=== PATIENT | female | born 1960 | race Caucasian/White ===

== ENCOUNTER 2024-05-26 17:24 | Inpatient (IN) ==
[2024-05-26 19:10] LABS: Albumin Level 3.8 gm/dl (3.4-5.0); BUN Creatinine Ratio 12.5 (10-20); Calcium 9.7 mg/dl (8.6-10.3); Creatinine Clr Calc Pharmacy 15.5 ml/min; Hematocrit (blood only) 34.3 % (37.0-47.0); Mean Corpuscular Hemoglobin 30.9 pg (25.0-34.0); Mean Corpuscular Hgb Conc 32.1 g/dL (32.0-36.0); Mean Corpuscular Volume 96.3 fL (80.0-100.0); Mean Platelet Volume 12.1 fL (9.4-12.4); Platelet Count 123 K/uL (130-400); Potassium 3.6 mmol/L (3.5-5.1); RDW Coefficient of Variation 15.6 % (11.5-14.5); RDW Standard Deviation 55.8 fL (36.4-46.3); Red Blood Count 3.56 M/uL (4.20-5.40); Total Protein 7.8 gm/dl (6.0-8.3); White Blood Count 20.04 K/ul (4.8-10.8)
[2024-05-26 19:11] LABS: Basophils # (auto) 0.03 K/uL (0.00-0.20); Basophils % (auto) 0.1 %; Eosinophils # (auto) 0.17 K/uL (0.00-0.50); Eosinophils % (auto) 0.8 %; Immature Granulocytes # (auto) 0.48 K/uL (0.01-0.20); Immature Granulocytes % (auto) 2.4 %; Lymphocytes # (auto) 1.19 K/uL (1.20-3.40); Lymphocytes % (auto) 5.9 %; Monocytes # (auto) 2.15 K/uL (0.11-0.59); Monocytes % (auto) 10.7 %; Neutrophils # (auto) 16.02 K/uL (1.40-6.50); Neutrophils % (auto) 80.1 %; Stomatocytes 1+
--- NOTE | 2024-05-26 19:51 | XRay Report ---
CHEST (AP PORTABLE): Reason for exam: Illness Previous: None The lung morel are clear and normally expanded. The cardiovascular markings and pulmonary vascular pattern are normal. The mediastinal structures and nadiya are normal. The bones and soft tissues are normal. IMPRESSION: Normal portable chest. Electronically signed by Michael Kelly 05-26-2024 7:51 PM
[2024-05-26 19:55] LABS: Amorphous Sediment Urine Present (None Prsent); Appearance Urine Turbid (Clear); Bacteria Urine Automated 1+ (None Seen); Bilirubin Urine 2+ (Negative); Blood Urine 1+ (Negative); Cast Urine Automated >20 /lpf (0-2); Color Urine Dark Yellow; Glucose Urine UA Negative (Negative); Granular Casts Urine Present /lpf (None Prsent); Ketones Urine Trace (Negative); Leukocyte Esterase Urine 2+ (Negative); Mucus Urine Present (None Prsent); Nitrite Urine Positive (Negative); Protein Urine 3+ (Negative); Specific Gravity Urine 1.028 (1.000-1.030); Urobilinogen Urine Positive (Negative); WBC Urine Automated >50 /hpf (0-5)
[2024-05-26] MEDS: SODIUM CHLORIDE 0.9% 1,000 ML IV ONE ×2 (21:17→21:57)
[2024-05-26] MEDS: cefTRIAXone SODIUM 2,000 MG/50 ML BAG IV STA (21:45)
[2024-05-26] MEDS: MoRPHine SULFATE 4 MG/ML 1 ML CARP\\VIAL IV STA (21:57)
--- NOTE | 2024-05-26 22:58 | Emergency Department Note ---
Impression & Plan Urinary tract infection, Acute right flank pain, ROGER (acute kidney injury), Sepsis ED Provider Note ED Provider Note NAME: AHSAN PUENTE AGE:63 SEX: Female : 1960 ARRIVES VIA: Private vehicle INFORMANT: Patient ED PROVIDER(s): Darlin Jeter DO CHIEF COMPLAINT: Right flank pain, vomiting HPI: This is a 63-year-old female who presents emergency room due to concern for right flank pain, nausea and vomiting, and dysuria. Patient states she first began having symptoms on Saturday and did see her PCP. She then had blood work and an ultrasound done today for further evaluation. She was told her blood work was abnormal. Patient states in the interim she had persistent right-sided flank pain. She thought perhaps initially it was musculoskeletal as she has been doing some exercises to try and lose weight. She then noticed over the weekend that she was urinating less often but still had the urge to urinate and that the urine was darker in color and had a stronger odor. She denies any history of recurrent UTIs. No other history of kidney problems or kidney stones. She states she began having worsening right flank and right back pain that would radiate into the right abdomen. She denies fevers or chills. She did have nausea and vomiting today, no hematemesis. No change in stools. PAST MEDICAL HISTORY:See Below PAST SURGICAL HISTORY:See Below FAMILY HISTORY:See Below SOCIAL HISTORY:See Below HOME MEDICATIONS:See Below ALLERGIES:See Below VITALS:See Below PHYSICAL EXAMINATION: GENERAL: alert, unwell appearing, well nourished, no distress, non-toxic EYE EXAM: normal conjunctiva, PERRL and EOM's grossly intact OROPHARYNX: no exudate, no erythema, lips, buccal mucosa, and tongue normal and mucous membranes are moist NECK: supple, no nuchal rigidity, no adenopathy, non-tender LUNGS: Clear to auscultation. Normal chest wall mechanics, no w/r/r HEART: no murmurs, S1 normal and S2 normal ABDOMEN: abdomen soft, pain with palpation in the right lateral abdomen, normo- active bowel sounds, no masses, no rebound or guarding. BACK: Back is symmetrical on inspection and there is no deformity, no midline tenderness, positive right CVA tenderness. SKIN: no rashes, petechiae, orbruising UPPER EXTREMITIES: upper extremities are grossly normal. FROM, nml pulses b/l. LOWER EXTREMITIES: No pitting edema. FROM, nml pulses b/l. NEURO EXAM: Normal sensorium, cranial nerves II-XII grossly intact, normal speech, no facial droop,nogross weakness of arms, no gross weakness of legs. Gross sensation intact. No ataxia. Vital Signs: reviewed and remarkable Differential Diagnosis: Ureterolithiasis, UTI, pyelonephritis, colitis, bowel obstruction, musculoskeletal pain, pneumonia, cholecystitis, pancreatitis, viral syndrome, as well as others were considered MEDICAL DECISION MAKING: This is a 63-year-old female presents emergency department due to concern for persistent flank pain, chills, and nausea. Patient noted to be hypertensive and borderline tachycardic on arrival. She did appear uncomfortable and complained of pain in the right flank. Did review her recent outpatient evaluation including labs and ultrasound. Upon arrival here labs drawn and sent, IV established, EKG and chest x-ray performed at bedside and was interpreted by me, and she was monitored on telemetry. She was started on IV fluids and upon review of prior cultures, started on IV antibiotics. She was sent for CT of the abdomen and pelvis additionally. Urine collected and sent and was abnormal. Patient symptoms suggestive of likely evolving pyelonephritis and given leukocytosis noted concern for possible sepsis. Blood cultures, lactic acid, procalcitonin added. Patient's lactic acid reassuring although procalcitonin elevated. Patient noted to have new significant ROGER additionally. CT did not reveal any obstructive process or significant hydronephrosis. Patient given 2 L of IV fluids here before being decreased to maintenance IV fluids. She was given IV Rocephin. Patient did maintain her blood pressure throughout. She did receive greater than 30 mL/KG based on ideal body weight. Patient updated on all results at bedside. She was given IV morphine for pain with improvement. Case discussed with the hospitalist team for additional evaluation and management. Patient did appear improved following IV fluids and IV medication for pain. Consultation(s): 8223: Discussed with Dr. Webster, [facility] hospitalist team, for additional evaluation and management. ER Treatment Provided: See below Diagnostics Interpreted By Me: -ECG: Normal sinus at 99, normal axis, normal intervals, no acute ST/T wave changes -Cardiac Monitoring: An order was placed for continuous cardiac monitoring. The monitor shows a rate of 98 with normal sinus rhythm. -Laboratory studies: As stated above and show below. -Imaging studies: CT abdomen/pelvis: No obvious ureterolithiasis Triage Nursing Note Reviewed Prior/Outside Records Reviewed -outpatient ultrasound and labs from today reviewed Critical Care: Critical care of 39 min performed to assess and manage high likelihood of life-threatening sepsis, involving labs and imaging performed with assessment to evaluate UTI and flank pain diagnosis with frequent reassessment. This time includes bedside time, treatment discussions with patient/family/consultants, documentation time and excludes procedure time. Past Med/Surg History Problem List (Updated 05/28/24 @ 02:08 by Darlin Jeter DO) Immunocompromised state due to drug therapy Sepsis (Acute) ROGER (acute kidney injury) (Acute) Urinary tract infection (Acute) Acute right flank pain (Acute) Social History Smoking Status: Former smoker Hx Alcohol Use: No Hx Substance Use: No Preferred Language: Ethiopian Communication Ability: Effective Office Rep Required: No Beliefs That Will Affect Care: None Current Living Situation: Spouse Feels Safe at Home: Yes Safety Concerns: Feels Safe At This Time Assistive Devices: Cane, Denture - Upper, Denture - Lower, Glasses and Walker Allergies Allergies Allergy/AdvReac Type Severity Reaction Status Date / Time No Known Allergies Allergy Verified 05/27/24 01:51 Home Meds Home Medications Medication Instructions Recorded Confirmed acetaminophen 500 mg tablet 1,000 mg PO Q6H PRN Pain 02/16/20 05/27/24 bupropion HCl 150 mg tablet,12 hr 150 mg PO AMHS 02/16/20 05/27/24 sustained-release calcium 600 mg (as 2 tab PO DAILY 02/16/20 05/27/24 carbonate)-vitamin D3 5 mcg (200 unit) tablet (Calcium 600 + D(3)) etanercept 50 mg/mL (1 mL) 50 mg subcut WK 02/16/20 05/27/24 subcutaneous pen injector (Enbrel SureClick) folic acid 1 mg tablet 1 mg PO QAM 02/16/20 05/27/24 furosemide 40 mg tablet 40 mg PO DAILY PRN Swelling 02/16/20 05/27/24 hydrochlorothiazide 12.5 mg capsule 12.5 mg PO DAILY 02/16/20 05/27/24 omeprazole 20 mg capsule,delayed 20 mg PO DAILY 02/16/20 05/27/24 release atorvastatin 10 mg tablet 10 mg PO DAILY 05/27/24 05/27/24 cyanocobalamin (vitamin B-12) 1,000 mcg PO DAILY 05/27/24 05/27/24 1,000 mcg tablet (Vitamin B-12) irbesartan 150 mg tablet 150 mg PO HS 05/27/24 05/27/24 naltrexone 50 mg tablet 50 mg PO QAM 05/27/24 05/27/24 ondansetron HCl 4 mg tablet 4 mg PO Q6 PRN Nausea 05/27/24 05/27/24 semaglutide 0.25 mg or 0.5 mg (2 0.5 mg subcut WK 05/27/24 05/27/24 mg/3 mL) subcutaneous pen injector (Ozempic) Results & Data (ED) Vital Signs Vital Signs - 24 hr 05/27/24 03:00 Pulse Rate [Apical] 93 H Respiratory Rate 20 Respiratory Effort / Characteristics Non-Labored Respiratory Depth Normal Respiratory Pattern Regular Blood Pressure [Right Arm] 129/76 Blood Pressure Mean [Right Arm] 93 Pulse Oximetry 98 Oxygen Delivery Method Room Air Laboratory Data 05/27/24 07:46 05/27/24 07:46 Lab Results 05/26/24 05/26/24 05/26/24 Range/Units 18:30 19:30 21:24 WBC 20.04 H (4.8-10.8) K/ul RBC 3.56 L (4.20-5.40) M/uL Hgb 11.0 L (12.0-16.0) g/dl Hct 34.3 L (37.0-47.0) % MCV 96.3 (80.0-100.0) fL MCH 30.9 (25.0-34.0) pg MCHC 32.1 (32.0-36.0) g/dL RDW Std Deviation 55.8 H (36.4-46.3) fL RDW Coeff of Izaiah 15.6 H (11.5-14.5) % Plt Count 123 L (130-400) K/uL MPV 12.1 (9.4-12.4) fL Immature Gran % (Auto) 2.4 % Neut % (Auto) 80.1 % Lymph % (Auto) 5.9 % Wilkinson % (Auto) 10.7 % Eos % (Auto) 0.8 % Baso % (Auto) 0.1 % Neut # (Auto) 16.02 H (1.40-6.50) K/uL Lymph # (Auto) 1.19 L (1.20-3.40) K/uL Wilkinson # (Auto) 2.15 H (0.11-0.59) K/uL Eos # (Auto) 0.17 (0.00-0.50) K/uL Baso # (Auto) 0.03 (0.00-0.20) K/uL Immature Gran # (Auto) 0.48 H (0.01-0.20) K/uL Stomatocytes 1+ Sodium 139 (136-145) mmol/L Potassium 3.6 (3.5-5.1) mmol/L Chloride 102 (98-107) mmol/L Carbon Dioxide 24 (21-32) mmol/L Anion Gap 13 H (3-11) BUN 54 H (6-23) mg/dl Creatinine 4.31 H (0.6-1.2) mg/dl Est Cr Clr Drug Dosing 15.5 ml/min eGFR 10.83 BUN/Creatinine Ratio 12.5 (10-20) Glucose 102 H (70-99(Fasting)) mg/dl Lactate 0.9 (0.4-2.0) mmol/L Calcium 9.7 (8.6-10.3) mg/dl Total Bilirubin 3.0 H (0.2-1.0) mg/dl AST 21 (13-39) U/L ALT 14 (7-52) U/L Alkaline Phosphatase 200 H (34-104) U/L Total Protein 7.8 (6.0-8.3) gm/dl Albumin 3.8 (3.4-5.0) gm/dl Globulin 4.0 (2.5-4.0) gm/dl Albumin/Globulin Ratio 1.0 (0.9-2) Procalcitonin 6.43 H (0-0.5) ng/ml Urine Color Dark Yellow Urine Appearance Turbid A (Clear) Urine pH 5.0 (4.5-7.5) Ur Specific [place] 1.028 (1.000-1.030) Urine Protein 3+ H (Negative) Urine Glucose (UA) Negative (Negative) Urine Ketones Trace H (Negative) Urine Blood 1+ H (Negative) Urine Nitrite Positive A (Negative) Urine Bilirubin 2+ H (Negative) Urine Urobilinogen Positive H (Negative) Ur Leukocyte Esterase 2+ H (Negative) Urine WBC (Auto) >50 H (0-5) /hpf Urine RBC (Auto) 3-5 H (0-2) /hpf U Hyaline Cast (Auto) >20 H (0-2) /lpf U Epithel Cells (Auto) 6-10 H (0-2) /hpf Urine Bacteria (Auto) 1+ H (None Seen) Amorphous Sediment Present A (None Prsent) Granular Casts Present A (None Prsent) /lpf Urine Mucus Present A (None Prsent) Administered Medications Acetaminophen (Acetaminophen 325 Mg Tab) 650 mg PO Q4H PRN PRN Reason: Pain or Fever Stop: 06/26/24 04:47 Last Admin: 05/27/24 21:40 Dose: 650 mg Documented By: Admin: 05/27/24 13:37 Dose: 650 mg Documented By: Admin: 05/27/24 05:24 Dose: 650 mg Documented By: KDL Bupropion HCl (Bupropion Sr 150 Mg Tabcr) 150 mg PO BID [facility] Stop: 06/26/24 08:59 Last Admin: 05/27/24 21:17 Dose: 150 mg Documented By: Admin: 05/27/24 08:38 Dose: 150 mg Documented By: OO Calcium/Vitamin D (Calcium 600mg + Vit D 400 Iu Tab) 2 tab PO DAILY [facility] Stop: 06/26/24 08:59 Last Admin: 05/27/24 08:38 Dose: 2 tab Documented By: OO Cyanocobalamin (Cyanocobalamin (B-12) 500 Mcg Tablet) 1,000 mcg PO DAILY [facility] Stop: 06/26/24 08:59 Last Admin: 05/27/24 08:38 Dose: 1,000 mcg Documented By: OO Folic Acid (Folic Acid 1 Mg Tab) 1 mg PO QAM [facility] Stop: 06/26/24 08:59 Last Admin: 05/27/24 08:36 Dose: 1 mg Documented By: OO Heparin Sodium (Porcine) (Heparin Sod 5,000 Unit/0.5 Ml Vial) 7,500 units SQ Q12 [facility] Stop: 06/26/24 08:59 Last Admin: 05/27/24 21:15 Dose: 7,500 units Documented By: Admin: 05/27/24 08:41 Dose: 7,500 units Documented By: OO Ceftriaxone Sodium (Rocephin) 2,000 mg in 50 mls @ 100 mls/hr IV Q24H [facility] Stop: 06/03/24 12:29 Last Infusion: 05/27/24 14:09 Dose: Infused Documented By: Admin: 05/27/24 13:35 Dose: 100 mls/hr Documented By: OO Sodium Bicarbonate 75 meq/ (Sodium Chloride) 1,075 mls @ 50 mls/hr IV .[id number] [facility] Stop: 05/28/24 09:29 Last Admin: 05/27/24 13:59 Dose: 50 mls/hr Documented By: ALBERTINA Pantoprazole Sodium (Pantoprazole 40 Mg Tab) 40 mg PO DAILY [facility] Stop: 06/26/24 08:59 Last Admin: 05/27/24 08:38 Dose: 40 mg Documented By: OO Discontinued Medications Sodium Chloride (Nss) 1,000 mls @ 999 mls/hr IV .Q1H1M ONE Stop: 05/26/24 21:58 Last Infusion: 05/26/24 22:18 Dose: Infused Documented By: Admin: 05/26/24 21:17 Dose: 999 mls/hr Documented By: KEYUR Ceftriaxone Sodium (Rocephin) 2,000 mg in 50 mls @ 100 mls/hr IV NOW STA Stop: 05/26/24 21:27 Last Infusion: 05/26/24 22:15 Dose: Infused Documented By: Admin: 05/26/24 21:45 Dose: 100 mls/hr Documented By: KIMANI Sodium Chloride (Nss) 1,000 mls @ 999 mls/hr IV .Q1H1M ONE Stop: 05/26/24 22:47 Last Infusion: 05/26/24 23:06 Dose: Infused Documented By: Admin: 05/26/24 21:57 Dose: 999 mls/hr Documented By: KEYUR Sodium Chloride (Nss) 1,000 mls @ 125 mls/hr IV .Q8H [facility] Stop: 05/27/24 23:29 Last Infusion: 05/27/24 04:49 Dose: Infused Documented By: Infusion: 05/27/24 04:49 Dose: 0 mls/hr Documented By: Admin: 05/26/24 23:35 Dose: 125 mls/hr Documented By: JASPAL Sodium Chloride (Nss) 1,000 mls @ 75 mls/hr IV .[id number] [facility] Stop: 05/28/24 04:47 Last Infusion: 05/27/24 13:59 Dose: Infused Documented By: Admin: 05/27/24 05:13 Dose: 75 mls/hr Documented By: TAZ Daptomycin 450 mg/ Syringe 9 mls @ 4.5 mls/min IV Q2D [facility]; Protocol Stop: 06/03/24 05:14 Last Admin: 05/27/24 05:24 Dose: 4.5 mls/min Documented By: TAZ Morphine Sulfate (Morphine Sulfate 4 Mg/Ml 1 Ml Carp\Vial) 4 mg IV NOW STA Stop: 05/26/24 21:48 Last Admin: 05/26/24 21:57 Dose: 4 mg Documented By: GCC Imaging Data Radiologist's Impression: Chest X-Ray 05/26/24 18:33 CHEST (AP PORTABLE): Reason for exam: Illness Previous: None The lung morel are clear and normally expanded. The cardiovascular markings and pulmonary vascular pattern are normal. The mediastinal structures and nadiya are normal. The bones and soft tissues are normal. IMPRESSION: Normal portable chest. Electronically signed by Michael Kelly 05-26-2024 7:51 PM Discharge Plan Visit Data Chief Complaint: Urinary Symptoms Stated Complaint: URINARY SYMPTOMS ED Provider: Darlin Jeter Discharge Problem: Urinary tract infection, Acute right flank pain, ROGER (acute kidney injury), Sepsis Patient Disposition: Admitted As Inpatient Discharge Instructions Interventions: ED Discharge Assessment Last Done: 05/27/24 04:26
[2024-05-26] MEDS: SODIUM CHLORIDE 0.9% 1,000 ML IV SCH (23:35)
--- NOTE | 2024-05-27 00:32 | CT Scan Report ---
Exam(s): CT ABDOMEN + PELVIS Without Contrast EXAM: CT Abdomen and Pelvis Without Intravenous Contrast CLINICAL HISTORY: Reason for exam: right abd/flank pain. TECHNIQUE: Axial computed tomography images of the abdomen and pelvis without intravenous contrast. CTDI is 28.14 mGy and DLP is 1437.03 mGy-cm. Automated exposure control was utilized for the study. A dose lowering technique was utilized adhering to the principles of ALARA. COMPARISON: CT Abdomen Pelvis dated 02/16/2020 FINDINGS: Lung bases: Unremarkable. No mass. No consolidation. ABDOMEN: Liver: Hepatomegaly. Hepatic steatosis. Gallbladder and bile ducts: Unremarkable. No calcified stones. No ductal dilation. Pancreas: Unremarkable. No ductal dilation. Spleen: Unremarkable. No splenomegaly. Adrenals: Unremarkable. No mass. Kidneys and ureters: Asymmetric mildly edematous/enlarged right kidney and minimal surrounding fat stranding. No hydroureteronephrosis or obstructing calculus. Stomach and bowel: Colonic diverticulosis. No obstruction. No mucosal thickening. PELVIS: Appendix: Normal appendix. Bladder: Mild bladder wall thickening versus partial distention. No stones. Reproductive: Unremarkable as visualized. ABDOMEN and PELVIS: Intraperitoneal space: Unremarkable. No free air. No significant fluid collection. Bones/joints: No acute fracture. No dislocation. Soft tissues: Unremarkable. Vasculature: Mild aortoiliac atherosclerotic calcifications. No abdominal aortic aneurysm. Lymph nodes: Unremarkable. No enlarged lymph nodes. IMPRESSION: Asymmetric mildly edematous/enlarged right kidney and minimal surrounding fat stranding. No hydroureteronephrosis or obstructing calculus. Differential diagnosis includes infection, recently passed calculus, underlying lesion. Correlate clinically and consider contrast study. Electronically signed by: Bin Maradiaga M.D. 05/27/24 00:31 AM
--- NOTE | 2024-05-27 03:43 | History & Physical Report ---
Date of Service May 27, 2024 Assessment & Plan (1) ROGER (acute kidney injury): Plan: 63-year-old female with past medical history significant for hypertension, morbid obesity, heartburn, generalized osteoarthritis, thrombocytopenia, macrocytic anemia, rheumatoid arthritis involving multiple sites with positive rheumatoid factor, presents with right flank pain and found to have ROGER and UTI. Patient states last 3 days she is having severe right flank pain radiating to her right groin region. Associated with nausea. And also had a fever at home 3 days ago. Was not micturating at home last 2 -3 days. Did not moved bowels yesterday. Was feeling short of breath. Denies chest pain. Has some mild headache. Mild right ear ache. Has some runny nose. No sore throat. No cough. Currently hemodynamics are okay. ROGER Creatinine 4.[address] scan no obvious obstruction seen Continue with fluids normal saline 75 mL/h Avoid nephrotoxic agents Follow repeat labs Consult nephrology in a.m. for further recommendations Acute UTI Acute pyelonephritis Asymmetric right mildly edematous/enlarged right kidney with minimal surrounding fat stranding on ct scan Received Rocephin in the ER Placed empirically on cefepime and Dapto with renal dosing Will follow cultures Further recommendation as per nephrology Possible sepsis With leukocytosis and tachycardia And UTI Empiric antibiotics Dapto and cefepime with renal dosing and fluids Closely monitor hemodynamics Possible right ear external otitis media Antibiotics as above Monitor Hypertension Hold hydrochlorothiazide and irbesartan for ROGER Will monitor Hyperlipidemia Hold statin while on Dapto Thrombocytopenia Platelets 123 We will monitor the labs Rheumatoid arthritis On Enbrel weekly which was held for now Morbid obesity On Ozempic which will be held for now GERD On omeprazole Depression On bupropion DVT prophylaxis Heparin subcu Monitor the platelets Disposition Telemetry Full code. History of Present Illness Chief Complaint: Right flank pain Primary Care Provider: Katja Priest DO 63-year-old female with past medical history significant for hypertension, morbid obesity, heartburn, generalized osteoarthritis, thrombocytopenia, macrocytic anemia, rheumatoid arthritis involving multiple sites with positive rheumatoid factor, presents with right flank pain and found to have ROGER and UTI. Patient states last 3 days she is having severe right flank pain radiating to her right groin region. Associated with nausea. And also had a fever at home 3 days ago. Was not micturating at home last 2 -3 days. Did not moved bowels yesterday. Was feeling short of breath. Denies chest pain. Has some mild headache. Mild right ear ache. Has some runny nose. No sore throat. No cough. Currently hemodynamics are okay. Past medical history. As mentioned above Past surgical history. Colonoscopy. Ligation of oviducts. Social history. . Quit smoking 2005. Smoked 1 pack a day for 25 years. No alcohol use currently. No drug use. Family history. Father had rheumatoid arthritis. Mother had breast cancer. Non-Hodgkin's lymphoma. Maternal cousin had breast cancer. Allergies Allergy/AdvReac Type Severity Reaction Status Date / Time No Known Allergies Allergy Verified 05/27/24 01:51 Home Medications Medication Instructions Recorded Confirmed Type acetaminophen 500 mg tablet 1,000 mg PO Q6H PRN Pain 02/16/20 05/27/24 History bupropion HCl 150 mg tablet,12 hr 150 mg PO AMHS 02/16/20 05/27/24 History sustained-release calcium 600 mg (as 2 tab PO DAILY 02/16/20 05/27/24 History carbonate)-vitamin D3 5 mcg (200 unit) tablet (Calcium 600 + D(3)) etanercept 50 mg/mL (1 mL) 50 mg subcut WK 02/16/20 05/27/24 History subcutaneous pen injector (Enbrel SureSaltyick) folic acid 1 mg tablet 1 mg PO QAM 02/16/20 05/27/24 History furosemide 40 mg tablet 40 mg PO DAILY PRN Swelling 02/16/20 05/27/24 History hydrochlorothiazide 12.5 mg capsule 12.5 mg PO DAILY 02/16/20 05/27/24 History omeprazole 20 mg capsule,delayed 20 mg PO DAILY 02/16/20 05/27/24 History release atorvastatin 10 mg tablet 10 mg PO DAILY 05/27/24 05/27/24 History cyanocobalamin (vitamin B-12) 1,000 mcg PO DAILY 05/27/24 05/27/24 History 1,000 mcg tablet (Vitamin B-12) irbesartan 150 mg tablet 150 mg PO HS 05/27/24 05/27/24 History naltrexone 50 mg tablet 50 mg PO QAM 05/27/24 05/27/24 History ondansetron HCl 4 mg tablet 4 mg PO Q6 PRN Nausea 05/27/24 05/27/24 History semaglutide 0.25 mg or 0.5 mg (2 0.5 mg subcut WK 05/27/24 05/27/24 History mg/3 mL) subcutaneous pen injector (Ozempic) Past Med/Surg History Problem List (Updated 05/27/24 @ 08:17 by Zina Nava MD, PhD) Sepsis ROGER (acute kidney injury) (Acute) Urinary tract infection (Acute) Acute right flank pain (Acute) Social History Smoking Status: Former smoker Hx Alcohol Use: No Hx Substance Use: No Preferred Language: Filipino Communication Ability: Effective Galvanizing Pot Runner Required: No Beliefs That Will Affect Care: None Current Living Situation: Spouse Feels Safe at Home: Yes Safety Concerns: Feels Safe At This Time Assistive Devices: Cane, Denture - Upper, Denture - Lower, Glasses and Walker Review of Systems Review of Systems: All systems reviewed & are unremarkable except as noted in HPI & below Physical Exam Physical Exam: General-Not in acute distress. Head- atraumatic Eyes- PERRL. ENT- oropharynx clear. Right ear external ear canal mild erythema seen Neck- supple, no JVD. Lungs- clear to auscultation no wheezing or crackles Heart- regular rhythm; no murmur, no gallop. Abdomen- normal bowel sounds, soft, mild diffuse discomfort, no distension Extremities- no pretibial edema, no erythema seen Neuro- alert, oriented PERRL, no facial palsy; no dysarthria; moves extremities Results & Data Results & Data Vital Signs (Past 12 Hours) Vital Signs Temp Pulse Pulse Resp BP BP Pulse Ox 05/27/24 02:00 95 H 18 141/88 H 94 05/27/24 00:34 91 H 05/27/24 00:00 95 H 20 120/84 98 05/26/24 23:35 97 H 18 133/66 98 05/26/24 23:00 98 H 18 97 05/26/24 22:00 102 H 18 126/80 97 05/26/24 20:39 99 H 05/26/24 18:03 36.4 C L 95 H 18 183/95 H 97 O2 Del Method 05/27/24 02:00 Room Air 05/27/24 00:34 05/27/24 00:00 Room Air 05/26/24 23:35 Room Air 05/26/24 23:00 Room Air 05/26/24 22:00 Room Air 05/26/24 20:39 05/26/24 18:03 Room Air Diagnostic Findings Laboratory Results WBC 20.04 K/ul (4.8-10.8) H 05/26/24 18:30 RBC 3.56 M/uL (4.20-5.40) L 05/26/24 18:30 Hgb 11.0 g/dl (12.0-16.0) L 05/26/24 18:30 Hct 34.3 % (37.0-47.0) L 05/26/24 18:30 MCV 96.3 fL (80.0-100.0) 05/26/24 18:30 MCH 30.9 pg (25.0-34.0) 05/26/24 18:30 MCHC 32.1 g/dL (32.0-36.0) 05/26/24 18:30 RDW Std Deviation 55.8 fL (36.4-46.3) H 05/26/24 18:30 RDW Coeff of Izaiah 15.6 % (11.5-14.5) H 05/26/24 18:30 Plt Count 123 K/uL (130-400) L 05/26/24 18:30 MPV 12.1 fL (9.4-12.4) 05/26/24 18:30 Immature Gran % (Auto) 2.4 % 05/26/24 18:30 Neut % (Auto) 80.1 % 05/26/24 18:30 Lymph % (Auto) 5.9 % 05/26/24 18:30 [place] % (Auto) 10.7 % 05/26/24 18:30 Eos % (Auto) 0.8 % 05/26/24 18:30 Baso % (Auto) 0.1 % 05/26/24 18:30 Neut # (Auto) 16.02 K/uL (1.40-6.50) H 05/26/24 18:30 Lymph # (Auto) 1.19 K/uL (1.20-3.40) L 05/26/24 18:30 [place] # (Auto) 2.15 K/uL (0.11-0.59) H 05/26/24 18:30 Eos # (Auto) 0.17 K/uL (0.00-0.50) 05/26/24 18:30 Baso # (Auto) 0.03 K/uL (0.00-0.20) 05/26/24 18:30 Immature Gran # (Auto) 0.48 K/uL (0.01-0.20) H 05/26/24 18:30 Stomatocytes 1+ 05/26/24 18:30 Sodium 139 mmol/L (136-145) 05/26/24 18:30 Potassium 3.6 mmol/L (3.5-5.1) 05/26/24 18:30 Chloride 102 mmol/L (98-107) 05/26/24 18:30 Carbon Dioxide 24 mmol/L (21-32) 05/26/24 18:30 Anion Gap 13 (3-11) H 05/26/24 18:30 BUN 54 mg/dl (6-23) H 05/26/24 18:30 Creatinine 4.31 mg/dl (0.6-1.2) H 05/26/24 18:30 Est Cr Clr Drug Dosing 15.5 ml/min 05/26/24 18:30 eGFR 10.83 05/26/24 18:30 BUN/Creatinine Ratio 12.5 (10-20) 05/26/24 18:30 Glucose 102 mg/dl (70-99(Fasting)) H 05/26/24 18:30 Lactate 0.9 mmol/L (0.4-2.0) 05/26/24 21:24 Calcium 9.7 mg/dl (8.6-10.3) 05/26/24 18:30 Total Bilirubin 3.0 mg/dl (0.2-1.0) H 05/26/24 18:30 AST 21 U/L (13-39) 05/26/24 18:30 ALT 14 U/L (7-52) 05/26/24 18:30 Alkaline Phosphatase 200 U/L (34-104) H 05/26/24 18:30 Total Protein 7.8 gm/dl (6.0-8.3) 05/26/24 18:30 Albumin 3.8 gm/dl (3.4-5.0) 05/26/24 18: Globulin 4.0 gm/dl (2.5-4.0) 05/26/24 18: Albumin/Globulin Ratio 1.0 (0.9-2) 05/26/24 18: Procalcitonin 6.43 ng/ml (0-0.5) H 05/26/24 18:30 Urine Color Dark Yellow 05/26/24 19: Urine Appearance Turbid (Clear) A 05/26/24 19: Urine pH 5.0 (4.5-7.5) 05/26/24 19: Ur Specific [place] 1.028 (1.000-1.030) 05/26/24: Urine Protein 3+ (Negative) H 05/26/24 Urine Glucose (UA) Negative (Negative) 05/26/24: Urine Ketones Trace (Negative) H 05/26/24: Urine Blood 1+ (Negative) H 05/26/24: Urine Nitrite Positive (Negative) A 05/26/24: Urine Bilirubin 2+ (Negative) H 05/26/24: Urine Urobilinogen Positive (Negative) H 05/26/24 19: Ur Leukocyte Esterase 2+ (Negative) H 05/26/24: Urine WBC (Auto) >50 /hpf (0-5) H 05/26/24 19: Urine RBC (Auto) 3-5 /hpf (0-2) H 05/26/24: U Hyaline Cast (Auto) >20 /lpf (0-2) H 05/26/24: U Epithel Cells (Auto) 6-10 /hpf (0-2) H 05/26/24 19: Urine Bacteria (Auto) 1+ (None Seen) H 05/26/24 19: Amorphous Sediment Present (None Prsent) A 05/26/24 19: Granular Casts Present /lpf (None Prsent) A 05/26/24 19: Urine Mucus Present (None Prsent) A 05/26/24 19:30 Impressions Chest X-Ray 05/26/24 18:33 CHEST (AP PORTABLE): Reason for exam: Illness Previous: None The lung morel are clear and normally expanded. The cardiovascular markings and pulmonary vascular pattern are normal. The mediastinal structures and nadiya are normal. The bones and soft tissues are normal. IMPRESSION: Normal portable chest. Electronically signed by Michael Kelly 05-26-2024 7:51 PM Abdomen/Pelvis CT 05/26/24 21:51 Exam(s): CT ABDOMEN + PELVIS Without Contrast EXAM: CT Abdomen and Pelvis Without Intravenous Contrast CLINICAL HISTORY: Reason for exam: right abd/flank pain. TECHNIQUE: Axial computed tomography images of the abdomen and pelvis without intravenous contrast. CTDI is 28.14 mGy and DLP is 1437.03 mGy-cm. Automated exposure control was utilized for the study. A dose lowering technique was utilized adhering to the principles of ALARA. COMPARISON: CT Abdomen Pelvis dated 02/16/2020 FINDINGS: Lung bases: Unremarkable. No mass. No consolidation. ABDOMEN: Liver: Hepatomegaly. Hepatic steatosis. Gallbladder and bile ducts: Unremarkable. No calcified stones. No ductal dilation. Pancreas: Unremarkable. No ductal dilation. Spleen: Unremarkable. No splenomegaly. Adrenals: Unremarkable. No mass. Kidneys and ureters: Asymmetric mildly edematous/enlarged right kidney and minimal surrounding fat stranding. No hydroureteronephrosis or obstructing calculus. Stomach and bowel: Colonic diverticulosis. No obstruction. No mucosal thickening. PELVIS: Appendix: Normal appendix. Bladder: Mild bladder wall thickening versus partial distention. No stones. Reproductive: Unremarkable as visualized. ABDOMEN and PELVIS: Intraperitoneal space: Unremarkable. No free air. No significant fluid collection. Bones/joints: No acute fracture. No dislocation. Soft tissues: Unremarkable. Vasculature: Mild aortoiliac atherosclerotic calcifications. No abdominal aortic aneurysm. Lymph nodes: Unremarkable. No enlarged lymph nodes. IMPRESSION: Asymmetric mildly edematous/enlarged right kidney and minimal surrounding fat stranding. No hydroureteronephrosis or obstructing calculus. Differential diagnosis includes infection, recently passed calculus, underlying lesion. Correlate clinically and consider contrast study. Electronically signed by: Bin Maradiaga M.D. 05/27/24 00:31 AM ECG Additional Comments: ECG. Normal sinus rhythm at rate of 99. No acute ST changes seen. Code Status & VTE Plan VTE Prophylaxis Plan VTE Prophylaxis will be ordered: Yes
[2024-05-27] MEDS ORDERED: HYDROmorphone INJ 0.5 MG/0.5 ML SYR IV PRN (04:48)
[2024-05-27] MEDS ORDERED: ONDANSETRON INJ 2 MG/ML 2 ML VIAL IV PRN (04:48)
[2024-05-27] MEDS ORDERED: NITROGLYCERIN SL 0.4 MG/TAB TAB SL PRN (04:48)
[2024-05-27] MEDS: SODIUM CHLORIDE 0.9% 1,000 ML IV SCH (05:13)
[2024-05-27] MEDS: ACETAMINOPHEN 325 MG TAB PO PRN (05:24)
[2024-05-27] MEDS: DAPTOmycin 450 MG in SYRINGE 0 ML IV SCH (05:24)
--- OUTSIDE RECORDS SUMMARY | 2024-05-27 05:46 | External Medical Summary ---
Author Name Unknown Address Unknown Organization : Laboratory Report Ordering Provider Test Date Status DIMITRIS KRAUSECULLEN 05/26/2024 08:01:00 Final Observation Date Value Abnormality Reference (Units ) Status Color of Urine by Auto 05/26/2024 08:01:00 Dark Yellow Abnormal Light Yellow, Yellow Final Clarity, Urine 05/26/2024 08:01:00 Cloudy Abnormal Clear Final Glucose [Mass/volume] in Urine by Automated test strip 05/26/2024 08:01:00 100 Abnormal Negative (mg/dL) Final Bilirubin.total [Presence] in Urine by Automated test strip 05/26/2024 08:01:00 Large Abnormal Negative Final Ketones [Mass/volume] in Urine by Automated test strip 05/26/2024 08:01:00 15 Abnormal Negative (mg/dL) Final Specific gravity, Urine 05/26/2024 08:01:00 1.025 1.003-1.030 Final Hemoglobin [Presence] in Urine by Automated test strip 05/26/2024 08:01:00 Moderate Abnormal Negative Final pH, Urine 05/26/2024 08:01:00 5.5 5.0, 5.5, 6.0, 6.5, 7.0, 7.5 (units) Final Protein [Mass/volume] in Urine by Automated test strip 05/26/2024 08:01:00 >=300 Abnormal Negative (mg/dL) Final Urobilinogen, Urine 05/26/2024 08:01:00 4.0 Abnormal 0.2, 1.0 (mg/dL) Final Nitrite [Presence] in Urine by Automated test strip 05/26/2024 08:01:00 Negative Negative Final Leukocyte esterase [Presence] in Urine by Automated test strip 05/26/2024 08:01:00 Trace Abnormal Negative Final Performing Location
--- OUTSIDE RECORDS SUMMARY | 2024-05-27 05:46 | External Medical Summary ---
Author Name Unknown Address Unknown Organization [id number]:LABORATORY [facility] [place] - [address] [place] [address] Laboratory Report Ordering Provider Test Date Status DAYANA KRAUSE 05/26/2024 08:09:47 Final Observation Date Value Abnormality Reference (Units ) Status HbA1C 05/26/2024 08:09:47 5.3 4.0-5.6 (% ) Final The use of HbA1c to monitor glycemic status is based on normal hemoglobin and HbA composition. This test should not be used in patients with abnormal hemoglobin that affects the half life of the red blood cell or the in vivo glycation rates. Glucose, estimated average 05/26/2024 08:09:47 105 <126 (mg/dL) Final Performing Location LABORATORY [facility] [place] - [address] [place] [address]
--- OUTSIDE RECORDS SUMMARY | 2024-05-27 05:46 | External Medical Summary | Summary of Care ---
Author Name Unknown Organization [facility] Address [address] [facility] [address] [place] [address] Phone [phone] Care Team Providers Care Manager Video Games Name Role Phone Katja Priest DO Primary Care Provider + [phone] Reason for Visit * Reason Onset Date Comments Medication Refill 05/14/2024 Encounter Details Date Type Department Care Team (Late st Contact Info) Description 05/14/2024 Refill Family Medicine [address] [place] [phone] Katja Priest DO [address] [place] [address] [place] [phone] GENERALIZED ANXIETY DIS; Morbid obesity with BMI of 40.0-44.9, adult (HCC) Allergies No known active allergiesdocumented as of this encounter (statuses as of 05/14/2024) Medications GNP VITAMIN B-12 1000 MCG PO TBCR Take 1 Tablet by mouth daily. 04/27/19 15 Active Cholecalciferol (VITAMIN D3) 2000 UNITS Capsule Take 1 Cap by mouth daily. 30 Cap 5 08/06/19 15 Active Additional Information Patient not taking.Reported on 03/06/2024 Cetirizine HCl 10 MG Oral Tablet (ZyrTEC) Take 1 Tablet by mouth in the morning. Active Irbesartan 150 MG Oral Tablet (Avapro)Indicati ons:Primary hypertension TAKE ONE TABLET BY MOUTH BEFORE bedtime 90 Tablet 3 12/03/19 24 Active Trulicity 0.75 MG/0.5ML Subcutaneous Solution Pen-injector (Dulaglutide)Ind ications:Type 2 diabetes mellitus without complications (HCC) Inject 0.75 mg subcutaneously once a week 2 mL 5 12/13/19 24 Active Enbrel SureClick 50 MG/ML Subcutaneous Solution Auto-injector (Etanercept)Charlotte cations:Arthriti s, rheumatoid (HCC) Inject 50 mg (1 pen) under the skin once a week. 4 mL 5 5 2:33 PM EST 01/08/20 24 Active Furosemide 40 MG Oral Tablet (Lasix)Indicatio ns:Generalized edema TAKE ONE TABLET BY MOUTH EVERY DAY NEEDED 90 Tablet 1 01/14/20 24 Active Folic Acid 1 MG Oral TabletIndication s:Rheumatoid arthritis involving multiple sites with positive rheumatoid factor ([facility]) Take 1 Tablet by mouth in the morning. In the morning.. 90 Tablet 2 02/04/20 24 Active Atorvastatin Calcium 10 MG Oral Tablet (Lipitor) TAKE ONE TABLET BY MOUTH EVERY DAY 90 Tablet 3 02/27/20 24 Active Ozempic (0.25 or 0.5 MG/DOSE) 2 MG/3ML Solution Pen-injector (Semaglutide(0.2 5 or 0.5MG/DOS))Indic ations:DM type 2, goal HbA1c < 7% ([facility]) Inject 0.25mg under the skin once weekly for 4 weeks then increase to 0.5mg under the skin once weekly thereafter 9 mL 1 4 11:25 AM EST 03/06/20 24 Active Diclofenac Sodium 50 MG Oral Tablet Delayed Release (Voltaren)Indica tions:Generalize d osteoarthritis,R heumatoid arthritis involving multiple sites with positive rheumatoid factor ([facility]) Take 1 Tablet by mouth 3 times a day as needed for Pain, Mild. 90 Tablet 2 03/11/20 24 Active Omeprazole 20 MG Oral Capsule Delayed Release (PriLOSEC)Indica tions:Heartburn Take 1 Capsule by mouth in the morning. 90 Capsule 2 05/12/19 25 Active buPROPion HCl ER (SR) 150 MG Oral Tablet Extended Release 12 Hour (Wellbutrin SR)Indications:G eneralized anxiety disorder,Morbid obesity with BMI of 40.0-44.9, adult ([facility]) Take 1 Tablet by mouth in the morning and 1 Tablet before bedtime. 180 Tablet 1 05/12/19 25 Active Naltrexone HCl 50 MG Oral Tablet (Revia)Indicatio ns:Generalized anxiety disorder,Morbid obesity with BMI of 40.0-44.9, adult (HCC) Take 1 Tablet by mouth in the morning. 90 Tablet 1 05/14/19 25 Active Naltrexone HCl 50 MG Oral Tablet (Revia)Indicatio ns:Generalized anxiety disorder,Morbid obesity with BMI of 40.0-44.9, adult (HCC) TAKE 1/2 TABLET BY MOUTH IN THE MORNING AND ONE-HALF TABLET AT BEDTIME 90 Tablet 02/07/20 24 025 Discontin ued(Refil l) documented as of this encounter (statuses as of 05/14/2024) Active Problems Problem Noted Date Diagnosed Date Morbid obesity with BMI of 40.0-44.9, adult 02/13 Overview (04/26/2022): 242 Primary hypertension 07/06/2021 Thrombocytopenia 07/08/2018 Overview (08/19/2018): 137,000 Macrocytic anemia 08/13/2017 Encounter for long-term (current) use of medicat ions 05/11/2016 Rheumatoid arthritis involvi ng multiple sites with positive rheumatoid factor 04/25/2016 Generalized osteoarthritis 12/07/2009 Heartburn 06/25/2002 Full dentures 06/25/2002 documented as of this encounter (statuses as of 05/14/2024) Resolved Problems Problem Noted Date Diagnosed Date Resolved Date Age-related osteoporosis wit hout current pathological fracture 02/04/2024 02/04/2024 Morbid obesity with BMI of 40.0-44.9, adult 02/28/2022 03/01/2022 Overview (02/28/2022): 242 DM type 2, goal HbA1c < 7% 04/17/2021 0 07/02/2023 Overview (12/12/2021): glucose 218 Restless legs syndrome 10/26/202007/01 CKD (chronic kidney disease), stage II 08/03/2020 07/02/2023 Overview (10/26/2020): EGFR 66 Urinary retention 06/29/2020 09/27/2021 Body mass index (BMI) of 45. 0 to 49.9 in adult 02/22/2020 10/26/2021 Overview: Per Obesity protocol Obesity, morbid (more than 1 00 lbs over ideal weight or BMI > 40) 04/17/2016 07/26/2016 Obesity, morbid (more than 1 00 lbs over ideal weight or BMI > 40) 01/17/2016 03/06/2016 Heart murmur 12/29/2015 02/12/2017 BMI 40.0-44.9, adult 08/30/2015 019 Overview (08/30/2015): 248 lbs Obesity, morbid (more than 1 00 lbs over ideal weight or BMI > 40) 06/07/2015 08/30/2015 Obesity, morbid (more than 1 00 lbs over ideal weight or BMI > 40) 06/01/2013 07/21/2013 Obesity, morbid (more than 1 00 lbs over ideal weight or BMI > 40) 07/12/2009 07/11/2011 Overview (07/04/2015): Per Obesity Taxonomy ICD-10 update of inactive term Elevated C-reactive protein (CRP) 06/08/2008 03/30/2009 Overview (06/09/2008): CRP 10.58 ADVANCE DIRECTIVE INFORMATION 02/10/2007 07/02/2023 Overview (12/08/2007): No, Advance Directive brochure given to patient. Uterine leiomyoma 02/10/2007 08/19/2018 Obesity, BMI not known 02/14/200407/12 Overview (07/12/2009): Per Obesity Taxonomy GENERALIZED ANXIETY DIS 06/25/200206/13 Arthritis, rheumatoid 06/25/20022016 Rosacea 06/25/2002 07/02/2023 Overview (02/14/2004): started on tetracycline Gastroparesis 02/12/2017 BMI 40.0-44.9, adult 014 BMI 39.0-39.9,adult 08/30/19 16 Morbid obesity with BMI of 40.0-44.9, adult 02/25/2020 Overview: Per Obesity protocol documented as of this encounter (statuses as of 05/14/2024) Immunizations Name Administration Dates Next Due COVID-19 mRNA, LNP-s, No Pre serve, 2-Dose Series (Moderna) 02/21/2021,08/12/2020,07/08/2020 COVID-19, LNP-s, No Preserve , Ld-sucrose, Ages 12+ (Pfizer) 10/10/2021 Covid-19, Mrna, Lnp-s, Pf, B ivalent, 30 Mcg, IM, 12 yrs and above (Pfizer) 01/30/2022 PPD 08/24/2011 Pneumococcal Conjugate Vacc, 13 Valent (Prevnar) 02/26/2019 Pneumococcal Conjugate Vacci ne, 20-valent ([id number]) 02/04/2024 Pneumococcal Polysaccharide PPV23 (Pneumovax) 04/24/2013,03/08/2008 Seasonal Influenza Vac., MDV , IM, 0.5 mL (Fluzone) 01/21/2015,01/28/2014,01/08/2013,01/13,07/11/2011,03/29/2011(Deferred: Patient Refused - does not want, has no insurance),12/29/2008,03/08/2008 Seasonal Influenza Virus Vac cine, Unspecified Formulation 02/20/2023,01/22/2022,02/17/2021,03/04,02/26/2019,06/11/2018,02/12/2017 ,03/06/2016,01/21/2015,01/28/2014,12/15,01/14/2012,07/11/2011, 9,03/08/2008 Seasonal Influenza, High Dos e, Trivalent, PF, IM (Fluzone HD) 02/04/2024 Seasonal Influenza, PF, 6 M & above, IM , (FluLaval or Fluzone) 02/20/2023,01/22/2022,02/17/2021,03/04,02/26/2019,06/11/2018,02/12/2017 Seasonal Influenza, Quadriva lent, No Preserve, IM 03/06/2016 TDAP (age 10 and older)(Boostrix) 08/13/2017 TDAP, Age 7 and older, IM (Adacel) 05/06/2007 Zoster Vaccine Recombinant (Shingrix) 08/13/2019 ,05/28/2019 documented as of this encounter Social History Tobacco Use Types Packs/Day Years Used Date Smoking Tobacco: Former Cigarettes 1 25 0 09/04/1980 - 09/04/2005 Smokeless Tobacco: Never Alcohol Use Standard Drinks/Week Comments Not Currently 0 (1 standard drink = 0.6 oz pur e alcohol) once a year at the most PHQ-2 Answer Date Recorded PHQ-2 Score 0 05/26/2019 Hunger Vital Sign Answer Date Recorded Worried About Running Out of Food in the Last Ye ar Never true 05/26/2019 Ran Out of Food in the Last Year Never true 05/26/2019 Comments No Sex and Gender Information Value Date Recorded Sex Assigned at Not on file Legal Sex Female 5:57 AM EST Gender Identity Not on file Sexual Orientation Not on file Occupation Industry Job Start Date Job End Date unemployed Not on file Not on file Not on file 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 Authorizing Provider: GEOFF BARRERA * Telephone Encounter - Katja Priest DO - 05/14/2024 1:48 PM ESTPending Prescriptions: Disp Refills Naltrexone HCl 50 MG Oral Tablet (Revia) 90 Tab*1 Sig: Take 1 Tablet by mouth in the morning. * Telephone Encounter - Katja Priest DO - 05/14/2024 1:48 PM EST Prescribed by GI nutrition. * Telephone Encounter - Mindi Logan RN - 05/14/2024 1:00 PM ESTPending Prescriptions: Disp Refills Naltrexone HCl 50 MG Oral Tablet (Revia) 90 Tab*1 Sig: Take 1 Tablet by mouth in the morning. * Telephone Encounter - Nusrat Henry administrative tech - 05/14/2024 10:39 AM EST Pt requesting HIGH PRIORITY due to pt has 2 tablets Did you pend patient's preferred pharmacy and medication before forwarding?yes Pharmacy: [facility], [address] [place] Pending Prescriptions: Disp Refills Naltrexone HCl 50 MG Oral Tablet (Revia) 90 Tab*0 Sig: Take 1 Tablet by mouth in the morning. Last Visit: 02/04/2024 (in office), Visit date not found (telemedicine) Next Visit: 09/29/2024 If no future appointments scheduled, and last appointment is greater than a year ago, please schedule patient for a follow-up appointment Last date the medication was ordered: 02/07/2024 Is this request for a controlled substance?No Urine Drug Screen:No results found. However, due to the size of the patient record, not all encounters were searched. Please check Results Review for a complete set of results. Patient Phone Numbers Labs: Lab Results Component Value Date/Time CREAT 1.0 02/04/2024 10:27 AM CREAT 1.0 09/18/2019 10:06 AM POTASSIUM 4.1 02/04/2024 10:27 AM POTASSIUM 4.1 09/18/2019 10:06 AM TSH 2.08 07/02/2023 01:53 PM TSH 2.52 08/28/2018 09:50 AM LDL 48 02/04/2024 10:27 AM LDL 77 06/06/2018 09:30 AM ALT 15 02/04/2024 10:27 AM ALT 17 09/18/2019 10:06 AM HGBA1C 5.4 07/02/2023 01:53 PM HGBA1C 5.6 06/06/2018 09:30 AM documented in this encounter Plan of Treatment Upcoming Encounters Date Type Department Care Team (Late st Contact Info) Description 06/10/2024 10:40 AM EST Nutrition Services Nutrition & Weight Management, [facility] [address] [place] [phone] Layla Ramesh RDN [address] [place] [address] [address] 08/07/2024 12:40 PM EDT Office Visit Nutrition & Weight Management, [facility] [address] [place] [address] Geoff Barrera PA-C [address] [place] [address] [address] 08/14/2024 10:20 AM EDT Office Visit Rheumatology [address] [place] [phone] Kevin Sánchez MD [facility] [address] 09/29/2024 8:50 AM EDT Office Visit Family Medicine [address] [phone] [place] [address] 04/22/2025 12:30 PM EST Imaging Radiology [address] [place] [address] Scheduled Procedures Name Priority Associated Diagnoses Date/Ti me COLONOSCOPY FLEXIBLE PROXIMA L DIAGNOSTIC Recall Family history of colonic polyps Health Maintenance Due Date Last Done Comments Sigmoidoscopy 08/12/2003 Fecal Occult Blood Test 06/07/2018 06/07/19, 08/13/2014, 07/30/2013, Additional history exists Depression Screening 05/26/2020 05/26/2019 Colonoscopy 12/06/2023 12/05/2018, 12/05/2018 COVID-19 Vaccine ( season) 2023 01/30/2022, 10/10/2021, 02/21/2021, Additional history exists Colorectal Cancer Screening 05/07/2024 GFR 02/03/2025 02/04/2024, 05/2022, 06/05/2022, Additional history exists Mammogram 04/21/2025 04/21/2024, 10/2024, 04/16/2023, Additional history exists Albumin/Creatinine Ratio 12/05/2025 12/05/2022, 01/13 Diabetes Screening 02/03/2027 02/04/2024, 0 07/02/2023, 01/14/2023, Additional history exists Cologuard 05/06/2027 05/06/2024 DTap/Tdap Vaccines (3 - Td or Tdap) 08/14/2027 08/13/2017, 05/06/2007 DXA Scan 01/07/2029 01/08/2024, 12/15, 07/30/2018, Additional history exists Lipid Panel 02/03/2029 02/04/2024, 05/2022, 06/06/2018, Additional history exists RETIRED - COLONOSCOPY-EVERY 5 YRS AGES 18-100 Discontinued 12/05/2018, 12/05/2018 Zoster Vaccines Completed 08/13/2019, 05/28/2019 Cervical Cancer Screening Discontinued Pap Smear Discontinued 07/25/2020, 10/14, 10/27/2012, Additional history exists Diabetic Foot Exam Discontinued 12/05/2022, 01/30/2022 Diabetic Eye Exam Discontinued 10/31/2023, , 01/22/2022 Influenza Vaccine (FLU shot) Completed 02/04/2024, 02/20/2023, 02/20/2023, Additional history exists Pneumococcal Vaccine: 50+ Years Completed 02/04/2024, 02/26/2019, 04/24/2013, Additional history exists HPV (Gardasil) Vaccine Aged Out No lo nger eligible based on patient's age to complete this topic HPV/Co-Test Discontinued Hepatitis B Vaccine Aged Out No longe r eligible based on patient's age to complete this topic MENINGOCOCCAL (MENACTRA/MENVEO) Aged Out No longer eligible based on patient's age to complete this topic documented as of this encounter Medical Devices Not on filedocumented as of this encounter Visit Diagnoses Diagnosis GENERALIZED ANXIETY DIS Generalized anxiety disorder Morbid obesity with BMI of 40.0-44.9, adult (HCC) Morbid obesity Screening mammogram for breast cancer documented in this encounter Care Teams Manager Video Games Relationship Specialty Start Date End Date Katja Priest DO [address] [place] [address] [place] [phone] PCP - General Internal Medicine 07/02/23 documented as of this encounter
--- OUTSIDE RECORDS SUMMARY | 2024-05-27 05:46 | External Medical Summary ---
Author Name Unknown Address Unknown Organization [id number]:[facility] [place] - [address] [place] [address] [place] [address] Laboratory Report Ordering Provider Test Date Status NELIDADIMITRISCULLEN 05/26/2024 08:09:47 Final Observation Date Value Abnormality Reference (Units ) Status Ferritin 05/26/2024 08:09:47 359 Above high normal 13 -150 (ng/mL) Final Postmenopausal women have hi gher ferritin levels than pre-menopausal women. The above reference interval is based on pre-menopausal women. Performing Location [facility] [place] - [address] [place] [id number]
--- OUTSIDE RECORDS SUMMARY | 2024-05-27 05:46 | External Medical Summary | Summary of Care ---
Author Name Unknown Organization [facility] Address [address] [facility] [place] [address] Phone [phone] Care Team Providers Care Director Of Market Intelligence Name Role Phone Katja Priest DO Primary Care Provider + [phone] Reason for Visit * Reason Comments Acute Encounter Details Date Type Department Care Team (Late st Contact Info) Description 05/26/2024 8:00 AM EST Office Visit Family Medicine [address] [place] [phone] Maribeth Purdy PA-C [address] [place] [address] [place] [address] Nausea* Allergies No known active allergiesdocumented as of this encounter (statuses as of 05/26/2024) Medications GNP VITAMIN B-12 1000 MCG PO TBCR Take 1 Tablet by mouth daily. 04/27/19 15 Active Cholecalciferol (VITAMIN D3) 2000 UNITS Capsule Take 1 Cap by mouth daily. 30 Cap 5 08/06/19 15 Active Additional Information Patient not taking.Reported on 05/26/2024 Cetirizine HCl 10 MG Oral Tablet (ZyrTEC) Take 1 Tablet by mouth in the morning. Active Irbesartan 150 MG Oral Tablet (Avapro)Indicatio ns:Primary hypertension TAKE ONE TABLET BY MOUTH BEFORE bedtime 90 Tablet 3 12/03/19 24 Active Trulicity 0.75 MG/0.5ML Subcutaneous Solution Pen-injector (Dulaglutide)[place] cations:Type 2 diabetes mellitus without complications (HCC) Inject 0.75 mg subcutaneously once a week 2 mL 5 12/13/19 24 Active Additional Information Patient not taking.Reported on 05/26/2024 Enbrel SureClick 50 MG/ML Subcutaneous Solution Auto-injector (Etanercept)Indic ations:Arthritis, rheumatoid (HCC) Inject 50 mg (1 pen) under the skin once a week. 4 mL 5 5 2:33 PM EST 01/08/20 24 Active Furosemide 40 MG Oral Tablet (Lasix)Indication s:Generalized edema TAKE ONE TABLET BY MOUTH EVERY DAY NEEDED 90 Tablet 1 01/14/20 24 Active Folic Acid 1 MG Oral TabletIndications :Rheumatoid arthritis involving multiple sites with positive rheumatoid factor ([facility]) Take 1 Tablet by mouth in the morning. In the morning.. 90 Tablet 2 02/04/20 24 Active Atorvastatin Calcium 10 MG Oral Tablet (Lipitor) TAKE ONE TABLET BY MOUTH EVERY DAY 90 Tablet 3 02/27/20 24 Active Ozempic (0.25 or 0.5 MG/DOSE) 2 MG/3ML Solution Pen-injector (Semaglutide(0.25 or 0.5MG/DOS))Indica tions:DM type 2, goal HbA1c < 7% ([facility]) Inject 0.25mg under the skin once weekly for 4 weeks then increase to 0.5mg under the skin once weekly thereafter 9 mL 1 4 11:25 AM EST 03/06/20 24 Active Diclofenac Sodium 50 MG Oral Tablet Delayed Release (Voltaren)Indicat ions:Generalized osteoarthritis,Rh eumatoid arthritis involving multiple sites with positive rheumatoid factor ([facility]) Take 1 Tablet by mouth 3 times a day as needed for Pain, Mild. 90 Tablet 2 03/11/20 24 Active Omeprazole 20 MG Oral Capsule Delayed Release (PriLOSEC)Indicat ions:Heartburn Take 1 Capsule by mouth in the morning. 90 Capsule 2 05/12/19 25 Active buPROPion HCl ER (SR) 150 MG Oral Tablet Extended Release 12 Hour (Wellbutrin SR)Indications:Ge neralized anxiety disorder,Morbid obesity with BMI of 40.0-44.9, adult ([facility]) Take 1 Tablet by mouth in the morning and 1 Tablet before bedtime. 180 Tablet 1 05/12/19 25 Active Naltrexone HCl 50 MG Oral Tablet (Revia)Indication s:Generalized anxiety disorder,Morbid obesity with BMI of 40.0-44.9, adult (HCC) Take 1 Tablet by mouth in the morning. 90 Tablet 1 05/14/19 25 Active Ondansetron HCl 4 MG Oral Tablet Take 1 Tablet by mouth every 6 hours as needed for Nausea. 30 Tablet 05/26/19 25 Active documented as of this encounter (statuses as of 05/26/2024) Active Problems Problem Noted Date Diagnosed Date [...] as of this encounter (statuses as of 05/26/2024) Resolved Problems Problem Noted Date Diagnosed Date [...] as of this encounter (statuses as of 05/26/2024) Immunizations Name Administration Dates Next Due COVID-19 mRNA, LNP-s, No Pre serve, 2-Dose Series (Moderna) 02/21/2021,08/12/2020,07/08/2020 COVID-19, LNP-s, No Preserve , Ld-sucrose, Ages 12+ (Pfizer) 10/10/2021 Covid-19, Mrna, Lnp-s, Pf, B ivalent, 30 Mcg, IM, 12 yrs and above (Pfizer) 01/30/2022 PPD 08/24/2011 Pneumococcal Conjugate Vacc, 13 Valent (Prevnar) 02/26/2019 Pneumococcal Conjugate Vacci ne, 20-valent ([id number]) 02/04/2024 Pneumococcal Polysaccharide PPV23 (Pneumovax) 04/24/2013,03/08/2008 Seasonal [...] on file documented as of this encounter Last Filed Vital Signs Vital Sign Reading Time Taken Comments Blood Pressure 122/58 05/26/2024 7:43 AM EST Pulse 110 05/26/2024 7:43 AM EST Temperature 36.2 C (97.2 F) 05/26/2024 7:43 AM ES T Respiratory Rate - - Oxygen Saturation 96% 05/26/2024 7:43 AM EST Inhaled Oxygen Concentration - - Weight 110.4 kg (243 lb 4.8 oz) 05/26/2024 7:43 AM EST Height - - Body Mass Index 43.44 04/17/2024 9:46 AM EST documented in this encounter Progress Notes * Maribeth Purdy PA-C - 05/26/2024 7:51 AM EST Nursing Notes: Oliva Alvarez CMA 05/26/24 0742 Sign at exiting of workspace Saturday she was doing chair exercise and she pulled something in her side. She had a fever Saturday.She has some pressure when she urinates. No other symptoms. She did have decreased appetite and nausea. Pt here today with nausea, some vomiting for the past couple days. She did have a fever but this only lasted a day. It has cleared. Pt denies URI sx, cough, chest pain, SOB, diarrhea, blood in stool,black stool. She states that her stool was light in color the other day. Pt does have some lower abdominal pressure and voiding small amounts at a time. She did pull some muscles in her right side, wh en she was exercising the other day. She doesn't have much of an appetite. Review of patient's allergies indicates: No Known Allergies Current Outpatient Medications Medication Sig Dispense Refill GNP VITAMIN B-12 1000 MCG PO TBCR Take 1 Tablet by mouth daily. Cetirizine HCl 10 MG Oral Tablet (ZyrTEC) Take 1 Tablet by mouth in the morning. Irbesartan 150 MG Oral Tablet (Avapro) TAKE ONE TABLET BY MOUTH BEFORE bedtime 90 Tablet 3 Enbrel SureClick 50 MG/ML Subcutaneous Solution Auto-injector (Etanercept) Inject 50 mg (1 pen) under the skin once a week. 4 mL 5 Furosemide 40 MG Oral Tablet (Lasix) TAKE ONE TABLET BY MOUTH EVERY DAY NEEDED 90 Tablet 1 Folic Acid 1 MG Oral Tablet Take 1 Tablet by mouth in the morning. In the morning.. 90 Tablet 2 Atorvastatin Calcium 10 MG Oral Tablet (Lipitor) TAKE ONE TABLET BY MOUTH EVERY DAY 90 Tablet 3 Ozempic (0.25 or 0.5 MG/DOSE) 2 MG/3ML Solution Pen-injector (Semaglutide(0.25 or 0.5MG/DOS)) Inject 0.25mg under the skin once weekly for 4 weeks then increase to 0.5mg under the skin once weekly thereafter 9 mL 1 Diclofenac Sodium 50 MG Oral Tablet Delayed Release (Voltaren) Take 1 Tablet by mouth 3 times a dayas needed for Pain, Mild. 90 Tablet 2 Omeprazole 20 MG Oral Capsule Delayed Release (PriLOSEC) Take 1 Capsule by mouth in the morning. 90Capsule 2 buPROPion HCl ER (SR) 150 MG Oral Tablet Extended Release 12 Hour (Wellbutrin SR) Take 1 Tablet by mouth in the morning and 1 Tablet before bedtime. 180 Tablet 1 Naltrexone HCl 50 MG Oral Tablet (Revia) Take 1 Tablet by mouth in the morning. 90 Tablet 1 Cholecalciferol (VITAMIN D3) 2000 UNITS Capsule Take 1 Cap by mouth daily. (Patient not taking: Reported on 05/26/2024) 30 Cap 5 Trulicity 0.75 MG/0.5ML Subcutaneous Solution Pen-injector (Dulaglutide) Inject 0.75 mg subcutaneously once a week (Patient not taking: Reported on 05/26/2024) 2 mL 5 No current facility-administered medications for this visit. Past Medical History: Diagnosis Date Arthritis, rheumatoid ([facility]) 11/2002 Dr Coleman injected her left shoulder BMI 40.0-44.9, adult ([facility]) 08/30/2015 248 lbs CKD (chronic kidney disease), stage II 08/03/2020 EGFR 66 COVID-19 08/10/2021 positive home test COVID-19 06/16/2022 home test Cystitis 02/16/2020 >100,000 E coli, pansensitive Cystitis 07/25/2022 10-100,000 pansensitive E coli DENTURES 1996 DM type 2, goal HbA1c < 7% ([facility]) 04/17/2021 glucose 218 Elevated C-reactive protein (CRP) 06/08/2008 CRP 10.58 Encounter for hepatitis C screening test for low risk patient 08/20/2008 negative Gastroparesis 07/08/2007 Generalized anxiety disorder Heartburn History of tobacco use Morbid obesity with BMI of 40.0-44.9, adult ([facility]) Primary hypertension Restless legs syndrome 10/26/2020 Rosacea 06/25/2002 started on tetracycline Screening for HIV without presence of risk factors 08/05/2014 negative Thrombocytopenia ([facility]) 07/08/2018 137,000 Type 2 diabetes mellitus with stage 2 chronic kidney disease, without long-term current use of insulin ([facility]) Uterine leiomyoma Social History Socioeconomic History Marital status: Spouse name: Joe Number of children: 3 Years of education: Not on file Highest education level: Not on file Occupational History Occupation: unemployed Occupation: Homemaker Tobacco Use Smoking status: Former Current packs/day: 0.00 Average packs/day: 1 pack/day for 25.0 years (25.0 ttl pk-yrs) Types: Cigarettes Start date: 09/04/1980 Quit date: 09/04/2005 Years since quittin.7 Smokeless tobacco: Never Vaping Use Vaping status: Never Used Substance and Sexual Activity Alcohol use: Not Currently Comment: once a year at the most Drug use: No Sexual activity: Yes Partners: Male control/protection: Surgical Comment: tubal Other Topics Concern Service Not Asked Blood Transfusions Not Asked Caffeine Concern Not Asked Occupational Exposure Not Asked Hobby Hazards Not Asked Sleep Concern Not Asked Stress Concern Not Asked Weight Concern Yes Comment: would like to lose some weight Special Diet Not Asked Back Care Not Asked Exercise Yes Comment: walks seasonally Bike Helmet Not Asked Seat Belt Not Asked Self-Exams Yes Comment: breast Social History Narrative Not on file Social Needs Financial Resource Strain: Not on file Food Insecurity: No Food Insecurity (05/26/2019) Hunger Vital Sign Worried About Running Out of Food in the Last Year: Never true Ran Out of Food in the Last Year: Never true Transportation Needs: Not on file Social Connections: Not on file Housing Stability: Not on file O:Blood pressure 122/58, pulse 110, temperature 97.2 F (36.2 C), weight 243 lb 4.8 oz (110.4 kg), last menstrual period 10/13/2006, SpO2 96%. GENERAL: alert and no distress. Skin looks slightly jaundiced? NECK: supple, no adenopathy EYES: conjunctiva are pink and non-injected, sclera clear EARS: External ears normal, Canals clear, TM's Normal OROPHARYNX: no exudate, no erythema, lips, buccal mucosa, and tongue normal, and mucous membranes are moist HEART: regular rate & rhythm, no murmur, and no gallops LUNGS: chest symmetric with normal AP diameter, no chest deformities noted, no chest wall tenderness, lungs clear to auscultation ABDOMEN: abdomen soft, non-tender, and obese A:Nausea (Primary) - COMPREHENSIVE METABOLIC PANEL; Future; Expected date: 05/26/2024 - CBC WITH WBC DIFFERENTIAL AND ANEMIA REFLEX WORKUP; Future; Expected date: 05/26/2024 - LIPASE; Future; Expected date: 05/26/2024 - URINALYSIS, POINT OF CARE - US ABDOMEN LIMITED; Future; Expected date: 06/02/2024 Will check some labs, abdominal US. Zofran as needed. Any questions/problems, please call. If anything changes, worsens, develops new sx, please call KELI. Urine shows protein, sugar, ketones, bilirubin. If sx worsen, she needs to go to ER KELI. Any questions/problems, please call. If anything changes, worsens, develops new sx, please call KELI. Follow Up: Return if symptoms worsen or fail to improve. Maribeth Purdy PA-C documented in this encounter Nursing Notes * Oliva Alvarez CMA - 05/26/2024 7:41 AM EST Saturday she was doing chair exercise and she pulled something in her side. She had a fever Saturday.She has some pressure when she urinates. No other symptoms. She did have decreased appetite and nausea. documented in this encounter Plan of Treatment Upcoming Encounters Date Type Department Care Team (Late st Contact Info) Description 05/26/2024 11:15 AM EST Imaging Radiology [address] [place] [address] Nausea 06/10/2024 10:40 AM EST Nutrition Services Nutrition & Weight Management, [facility] [address] [place] [phone] Layla Ramesh RDN [address] [place] [id number] 08/07/2024 12:40 PM EDT Office Visit Nutrition & Weight Management, [facility] [address] [place] [address] Amberly Barrera PA-C [address] [place] [address] 08/14/2024 10:20 AM EDT Office Visit Rheumatology [address] [place] [phone] Kevin Sánchez MD [facility] [place] [address] 09/29/2024 8:50 AM EDT Office Visit Family Medicine [address] [place] [phone] Katja Priest[address] [place] [address] 04/22/2025 12:30 PM EST Imaging Radiology [address] [place] [address] Pending Results Name Type Priority Associated Diagnoses Date/Time COMPREHENSIVE METABOLIC PANEL Lab Routine Nausea 05/26/2024 8:09 AM EST CBC WITH WBC DIFFERENTIAL AND ANEMIA REFLEX WORKUP Lab Routine Nausea 05/26/2024 8:09 AM EST LIPASE Lab Routine Nausea 05/26/2024 8:09 AM EST US ABDOMEN LIMITED Medical Imaging Routine Nausea 05/26/2024 8:29 AM EST HEMOGLOBIN A1C Lab Routine Nausea 05/26/2024 8:09 AM EST Scheduled Orders Name Type Priority Associated Diagnoses Orde r Schedule COMPREHENSIVE METABOLIC PANEL Lab Routine Nausea Expected: 05/26/2024 (Approximate), Expires: 05/26/2025 CBC WITH WBC DIFFERENTIAL AND ANEMIA REFLEX WORKUP Lab Routine Nausea Expected: 05/26/2024 (Approximate), Expires: 05/26/2025 LIPASE Lab Routine Nausea Expected: 05/26/2024 (Approximate), Expires: 05/26/2025 US ABDOMEN LIMITED Medical Imaging Routine Nausea Expected: 06/02/2024, Expires: 06/23/2025 HEMOGLOBIN A1C Lab Routine Nausea Expected: 05/26/2024 (Approximate), Expires: 05/26/2025 Scheduled Procedures Name Priority Associated Diagnoses Date/Ti [...] Colorectal Cancer Screening 05/07/2024 GFR 02/03/2025 02/04/2024, 0 05/2022, 06/05/2022, Additional history exists Mammogram 04/21/2025 [...] Not on filedocumented as of this encounter Procedures Procedure Name Priority Date/Time Associated Diagnosis Comments URINALYSIS, POINT OF CARE Routine 05/26/2024 8:01 AM EST Nausea documented in this encounter Results * (ABNORMAL) URINALYSIS, POINT OF CARE (05/26/2024 8:01 AM EST) Color, Urine Dark Yellow(A) Light Yellow, Yellow 05/26/2024 8:14 AM EST [facility] [place] 55-00 Clarity, Urine Cloudy(A) Clear 05/26/2024 8:14 AM EST [facility] [place] 55-00 Glucose, Urine 100(A) Negative mg/dL 05/26/2024 8:14 AM EST [facility] [place] 55-00 Bilirubin, Urine Large(A) Negative 05/26/2024 8:14 AM EST [facility] [place] 55-00 Ketone, Urine 15(A) Negative mg/dL 05/26/2024 8:14 AM EST [facility] [place] 55-00 Specific [place], Urine 1.025 1.003 - 1.030 05/26/2024 8:14 AM EST [facility] [place] 55-00 Blood, Urine Moderate(A) Negative 05/26/2024 8:14 AM EST [facility] [place] 55-00 pH, Urine 5.5 5.0, 5.5, 6.0, 6.5, 7.0, 7.5 units 05/26/2024 8:14 AM EST [facility] [place] 55-00 Protein, Urine >=300(A) Negative mg/dL 05/26/2024 8:14 AM EST [facility] [place] 55-00 Urobilinogen, Urine 4.0(A) 0.2, 1.0 mg/dL 05/26/2024 8:14 AM EST [facility] [place] 55-00 Nitrite, Urine Negative Negative 05/26/2024 8:14 AM EST [facility] [place] 55-00 Esterase, Urine Trace(A) Negative 05/26/2024 8:14 AM EST [facility] [place] 55-00 Urine 05/26/2024 8:01 AM EST 05/26/2024 8:14 AM EST Maribeth Purdy PA-C LAB POINT OF CARE TEST DOCKED DEVICE UNSOLICITED RESULTS Final Result [facility] [place] [address] [place] [address] [place] [address] documented in this encounter Visit Diagnoses Diagnosis Nausea- Primary Nausea alone Nausea Nausea alone Screening mammogram for breast cancer documented in this encounter Care Teams Director Of Market Intelligence Relationship Specialty Start Date End Date Katja Priest DO [address] [place] [address] [place] [address] PCP - General Internal Medicine 07/02/23 documented as of this encounter
--- OUTSIDE RECORDS SUMMARY | 2024-05-27 05:46 | External Medical Summary ---
Author Name Unknown Address Unknown Organization [id number]:[facility] [place] [address] [place] [address] Laboratory Report Ordering Provider Test Date Status DAYANA KRAUSE 05/26/2024 08:09:47 Final Observation Date Value Abnormality Reference (Units ) Status Folic Acid 05/26/2024 08:09:47 14.5 >4.5 (ng/ mL) Final Performing Location [facility] - [address] [place] [address]
--- OUTSIDE RECORDS SUMMARY | 2024-05-27 05:46 | External Medical Summary | Summary of Care ---
Author Name Unknown Organization [facility] Address [address] [facility] [address] [place] [address] Phone [phone] Care Team Providers Care Manager Risk Name Role Phone Katja Priest DO Primary Care Provider + [phone] Reason for Visit * Reason Comments Outpatient Testing Encounter Details Date Type Department Care Team (Late st Contact Info) Description 05/26/2024 8:20 AM EST Laboratory Laboratory [address] [place] [phone] [place] [address] Nausea Allergies No known active allergiesdocumented as of [...] multiple sites with positive rheumatoid factor ([facility]) Take 1 Tablet by mouth in the morning. In the morning.. 90 Tablet 2 02/04/20 24 Active Atorvastatin Calcium 10 MG Oral Tablet (Lipitor) TAKE ONE TABLET BY MOUTH EVERY DAY 90 Tablet 3 02/27/20 24 Active Ozempic (0.25 or 0.5 MG/DOSE) 2 MG/3ML Solution Pen-injector (Semaglutide(0.25 or 0.5MG/DOS))Indica tions:DM type 2, goal HbA1c < 7% ([facility]) Inject 0.25mg under the skin once weekly for 4 weeks then increase to 0.5mg under the skin once weekly thereafter 9 mL 1 4 11:25 AM EST 03/06/20 24 Active Diclofenac Sodium 50 MG Oral Tablet Delayed Release (Voltaren)Indicat ions:Generalized osteoarthritis,Rh eumatoid arthritis involving multiple sites with positive rheumatoid factor ([facility]) Take 1 Tablet by mouth 3 times [...] obesity with BMI of 40.0-44.9, adult ([facility]) Take 1 Tablet by mouth in the [...] (Prevnar) 02/26/2019 Pneumococcal Conjugate Vacci ne, 20-valent ([id number]) 02/04/2024 Pneumococcal Polysaccharide PPV23 (Pneumovax) 04/24/2013,03/08/2008 Seasonal [...] on file documented as of this encounter Plan of Treatment Upcoming Encounters Date Type Department Care Team (Late st Contact Info) Description 05/26/2024 11:15 AM EST Imaging Radiology [address] [place] [address] Nausea 06/10/2024 10:40 AM EST Nutrition Services Nutrition & Weight Management, [facility] [address] [place] [address] Layla Ramesh RDN [address] [place] [address] 08/07/2024 12:40 PM EDT Office Visit Nutrition & Weight Management, [facility] [address] [place] [address] Amberly Barrera PA-C [address] [place] [address] 08/14/2024 10:20 AM EDT Office Visit Rheumatology [address] [place] [phone] Kevin Sánchez MD [address] [facility] [place] [address] 09/29/2024 8:50 AM EDT Office Visit Family Medicine [address] [place] [phone] [place] [address] 04/22/2025 12:30 PM EST Imaging Radiology [address] [place] [address] Pending Results Name Type Priority Associated Diagnoses Date /Time COMPREHENSIVE METABOLIC PANEL Lab Routine Nausea 05/26/2024 8:09 AM EST CBC WITH WBC DIFFERENTIAL AND ANEMIA REFLEX WORKUP Lab Routine Nausea 05/26/2024 8:09 AM EST LIPASE Lab Routine Nausea 05/26/2024 8:09 AM EST HEMOGLOBIN A1C Lab Routine Nausea 05/26/2024 8:09 AM EST ANEMIA CBC Lab Routine Nausea 05/26/2024 8:09 AM EST DIFFERENTIAL, AUTOMATED Lab Routine Nausea 05/26/2024 8:09 AM EST ANEMIA REFLEX CHEMISTRY HOLD Lab Routine Nausea 05/26/2024 8:09 AM EST Scheduled Procedures Name Priority Associated Diagnoses Date/Ti me COLONOSCOPY FLEXIBLE PROXIMA L DIAGNOSTIC Recall Family history of colonic polyps Health Maintenance Due Date Last Done Comments Sigmoidoscopy 08/12/2003 Fecal Occult Blood Test 06/07/2018 06/07/19 18, 08/13/2014, 07/30/2013, Additional history exists Depression Screening [...] as of this encounter Visit Diagnoses Diagnosis Nausea Nausea alone Nausea Nausea alone Screening mammogram for breast cancer documented in this encounter Care Teams Manager Risk Relationship Specialty Start Date End Date Katja Priest DO [address] [place] [address] [place] [phone] PCP - General Internal Medicine 07/02/23 documented as of this encounter
--- OUTSIDE RECORDS SUMMARY | 2024-05-27 05:46 | External Medical Summary ---
Author Name Unknown Address Unknown Organization [id number]:[facility] [place] [address] [place] [id number] Laboratory Report Ordering Provider Test Date Status NELIDADAYANA 05/26/2024 08:09:47 Final Observation Date Value Abnormality Reference (Units ) Status Iron 05/26/2024 08:09:47 18 Below low normal 33-151 (ug/dL) Final Iron-binding capacity 05/26/2024 08:09:47 223 Below low normal 250-425 (ug/dL) Final Transferrin Sat % 05/26/2024 08:09:47 8 Below low normal 15-55 (%) Final Performing Location [facility] [place] [address] [place] [address]
--- OUTSIDE RECORDS SUMMARY | 2024-05-27 05:46 | External Medical Summary ---
Author Name Unknown Address Unknown Organization [id number]:[facility] [place] [address] [facility] [place] [id number] Laboratory Report Ordering Provider Test Date Status DAYANA KRAUSE 05/26/2024 08:09:47 Final Observation Date Value Abnormality Reference (Units ) Status SYNC LEUKOCYTES IN BLOOD BY AUTOMATED COUNT 05/26/2024 08:09:47 28.34 Above high normal 4.00-10.80 (K/uL) Final Segs 05/26/2024 08:09:47 85.4 Above high normal 40.0-75.0 (%) Final Lymphs % 05/26/2024 08:09:47 2.0 Below low normal 18.0-42.0 (%) Final Monos 05/26/2024 08:09:47 10.2 1.0-11.0 (%) Final Eosinophils 05/26/2024 08:09:47 0.0 0.0-6.0 (%) Final Basos 05/26/2024 08:09:47 0.2 0.0-2.0 (%) Final Immature Granulocyte, Percent 05/26/2024 08:09:47 2.2 Above high normal 0.0-2.0 (%) Final Absolute Segs 05/26/2024 08:09:47 24.20 Above high normal 1.80-7.70 (K/uL) Final Lymphs, absolute 05/26/2024 08:09:47 0.58 Below low normal 1.00-4.80 (K/ul) Final Monos, Abs 05/26/2024 08:09:47 2.88 Above high normal 0.00-1.10 (K/uL) Final Eos, Abs 05/26/2024 08:09:47 0.01 0.00-0.70 (K/uL) Final Basos, Abs 05/26/2024 08:09:47 0.06 0.00-0.20 (K/uL) Final Immature Granulocytes, Number 05/26/2024 08:09:47 0.61 Above high normal 0.00-0.20 (K/uL) Final Performing Location [facility] [place] [address] [facility] [address]
--- OUTSIDE RECORDS SUMMARY | 2024-05-27 05:46 | External Medical Summary ---
Author Name Unknown Address Unknown Organization [id number]:[facility] [place] [address] [place] [address] Laboratory Report Ordering Provider Test Date Status DAYANA KRAUSE 05/26/2024 08:09:47 Final Observation Date Value Abnormality Reference (Units ) Status Vitamin B12 05/26/2024 08:09:47 >2000 Above high normal 232-1245 (pg/mL) Final Performing Location [facility] - [address] [place] [id number]
--- OUTSIDE RECORDS SUMMARY | 2024-05-27 05:46 | External Medical Summary ---
Author Name Unknown Address Unknown Organization [id number]:[facility] [place] - [address] [facility] [place] [address] Laboratory Report Ordering Provider Test Date Status DAYANA KRAUSE 05/26/2024 08:09:47 Final Observation Date Value Abnormality Reference (Units ) Status TSH 05/26/2024 08:09:47 1.46 0.27-4.20 (uIU/mL) Final Performing Location [facility] - [address] [place] [address]
--- OUTSIDE RECORDS SUMMARY | 2024-05-27 05:46 | External Medical Summary ---
Author Name Unknown Address Unknown Organization [id number]:[facility] [place] [facility] Subhash [place] [address] Laboratory Report Ordering Provider Test Date Status DAYANA KRAUSE 05/26/2024 08:09:47 Final Observation Date Value Abnormality Reference (Units ) Status WBC, Total 05/26/2024 08:09:47 28.34 Above high normal 4 .00-10.80 (K/uL) Final RBC 05/26/2024 08:09:47 3.48 3.85-5.15 (M/uL) Final Hemoglobin 05/26/2024 08:09:47 11.1 Below low normal 12 .0-15.3 (g/dL) Final Anemia reflex testing trigge rs on a HGB < 12.0 for Females and HGB < 13.0 for Males in accordance with the WHO Anemia Guidelines
Anemia reflex testing triggers on a HGB < 12.0 for Females and HGB < 13.0 for Males in accordance with the WHO Anemia Guidelines HCT 05/26/2024 08:09:47 36.2 36.0-45.2 (%) Final MCV 05/26/2024 08:09:47 104.0 81.5-97.5 (fL) Final MCH 05/26/2024 08:09:47 31.9 27.0-34.0 (pg) Final MCHC 05/26/2024 08:09:47 30.7 32.0-36.0 (g/dL) Final RDW 05/26/2024 08:09:47 15.6 11.5-15.5 (%) Final Platelets 05/26/2024 08:09:47 125 Below low normal 140 -400 (K/uL) Final MPV 05/26/2024 08:09:47 12.5 6.6-11.1 ( fL) Final Nucleated erythrocytes/100 leukocytes [Ratio] in Blood by Automated count 05/26/2024 08:09:47 0 <=0 (/100 WBCs) [facility] Performing Location [facility] [place] [address] [facility] [address]
--- OUTSIDE RECORDS SUMMARY | 2024-05-27 05:47 | External Medical Summary | Summary of Care ---
Author Name Unknown Organization [facility] Address [address] [facility] [place] [address] Phone [phone] Care Team Providers Care Silo Tender Name Role Phone PriestKatja gaming Primary Care Provider [phone] Reason for Visit * Reason Comments Nurse Documentation The pt is here for a dditional Ozempic injection teaching. Note, this is the 2nd time this patient has come in for injection teaching and she successfully administered the medication in office on her own the first time. Encounter Details Date Type Department Care Team (Late st Contact Info) Description 04/17/2024 10:00 AM EST Nurse Only Nutrition & Weight Management, [facility] 132 [facility] [place] [address] DawsonNurse Sepideh mderano Nutrition [facility] [address] Nurse Documentation (The pt is here for ad... Allergies No known active allergiesdocumented as of this encounter (statuses as of 04/17/2024) Medications GNP VITAMIN B-12 1000 MCG PO TBCR Take 1 Tablet by mouth daily. 04/27/19 15 Active Cholecalciferol (VITAMIN D3) 2000 UNITS Capsule Take 1 Cap by mouth daily. 30 Cap 5 08/06/19 15 Active Additional Information Patient not taking.Reported on 03/06/2024 Cetirizine HCl 10 MG Oral Tablet (ZyrTEC) Take 1 Tablet by mouth in the morning. Active buPROPion HCl ER (SR) 150 MG Oral Tablet Extended Release 12 Hour (Wellbutrin SR)Indications:Ge neralized anxiety disorder,Morbid obesity with BMI of 40.0-44.9, adult (HCC) Take 1 Tablet by mouth in the morning and 1 Tablet before bedtime. 180 Tablet 1 10/08/19 24 Active Omeprazole 20 MG Oral Capsule Delayed Release (PriLOSEC)Indicat ions:Heartburn TAKE ONE CAPSULE BY MOUTH EVERY DAY ONE hour BEFORE first meal of THE DAY 90 Capsule 1 11/12/19 24 Active Irbesartan 150 MG Oral Tablet (Avapro)Indicatio ns:Primary hypertension TAKE ONE TABLET BY MOUTH BEFORE bedtime 90 Tablet 3 12/03/19 24 Active Trulicity 0.75 MG/0.5ML Subcutaneous Solution Pen-injector (Dulaglutide)Charlotte cations:Type 2 diabetes mellitus without complications ([facility]) Inject 0.75 mg subcutaneously once a week 2 mL 5 12/13/19 24 Active Enbrel SureClick 50 MG/ML Subcutaneous Solution Auto-injector (Etanercept)Indic ations:Arthritis, rheumatoid ([facility]) Inject 50 mg (1 pen) under the skin once a week. 4 mL 5 4 9:20 AM EST 01/08/20 24 Active Furosemide 40 MG Oral Tablet (Lasix)Indication s:Generalized edema TAKE ONE TABLET BY MOUTH EVERY DAY NEEDED 90 Tablet 1 01/14/20 24 Active Naltrexone HCl 50 MG Oral Tablet (Revia)Indication s:Generalized anxiety disorder,Morbid obesity with BMI of 40.0-44.9, adult ([facility]) TAKE 1/2 TABLET BY MOUTH IN THE MORNING AND ONE-HALF TABLET AT BEDTIME 90 Tablet 02/07/20 24 Active Folic Acid 1 MG Oral TabletIndications :Rheumatoid arthritis involving multiple sites with positive rheumatoid factor ([facility]) Take 1 Tablet by mouth in the morning. In the morning.. 90 Tablet 2 02/04/20 24 Active Atorvastatin Calcium 10 MG Oral Tablet (Lipitor) TAKE ONE TABLET BY MOUTH EVERY DAY 90 Tablet 3 02/27/20 24 Active Ozempic (0.25 or 0.5 MG/DOSE) 2 MG/3ML Solution Pen-injector (Semaglutide(0.25 or 0.5MG/DOS))Indica tions:DM type 2, goal HbA1c < 7% ([facility]) Inject 0.25mg under the skin once weekly for 4 weeks then increase to 0.5mg under the skin once weekly thereafter 9 mL 1 4 11:25 AM EST 03/06/20 24 Active Diclofenac Sodium 50 MG Oral Tablet Delayed Release (Voltaren)Indicat ions:Generalized osteoarthritis,Rh eumatoid arthritis involving multiple sites with positive rheumatoid factor (HCC) Take 1 Tablet by mouth 3 times a day as needed for Pain, Mild. 90 Tablet 2 03/11/20 24 Active documented as of this encounter (statuses as of 04/17/2024) Active Problems Problem Noted Date Diagnosed Date [...] as of this encounter (statuses as of 04/17/2024) Resolved Problems Problem Noted Date Diagnosed Date [...] as of this encounter (statuses as of 04/17/2024) Immunizations Name Administration Dates Next Due COVID-19 mRNA, LNP-s, No Pre serve, 2-Dose Series (Moderna) 02/21/2021,08/12/2020,07/08/2020 COVID-19, LNP-s, No Preserve , Ld-sucrose, Ages 12+ (Pfizer) 10/10/2021 Covid-19, Mrna, Lnp-s, Pf, B ivalent, 30 Mcg, IM, 12 yrs and above (Pfizer) 01/30/2022 PPD 08/24/2011 Pneumococcal Conjugate Vacc, 13 Valent (Prevnar) 02/26/2019 Pneumococcal Conjugate Vacci ne, 20-valent ([id number]) 02/04/2024 Pneumococcal Polysaccharide PPV23 (Pneumovax) 04/24/2013,03/08/2008 Seasonal [...] in the Last Year Never true 05/26/2019 Utilities Answer Date Recorded Do you have trouble paying y our heating, water, or electric bill? (Adult - for ages 18 years and over) Not on file 10/01/2023 Is your family able to pay t he heat, water, or electric bill? (Household - for ages 0-17 years) Not on file 10/01/2023 Does your family have access to good internet? (Household - for ages 0-17 years) Not on file 10/01/2023 Social Connections Answer Date Recorded How often do you feel lonely or isolated from those around you? (Adult - for ages 18 years and over) Not on file 10/01/2023 Comments No Sex and Gender Information Value [...] Sign Reading Time Taken Comments Blood Pressure - - Pulse - - Temperature - - Respiratory Rate - - Oxygen Saturation - - Inhaled Oxygen Concentration - - Weight 114.5 kg (252 lb 6.4 oz) 04/17/2024 9:46 AM EST Height 159.4 cm (5' 2.75") 04/17/2024 9:46 AM ES T Body Mass Index 45.07 04/17/2024 9:46 AM EST documented in this encounter Nursing Notes * Sean Carlson LPN - 04/17/2024 9:41 AM EST Chief Complaint Patient presents with Nurse Documentation The pt is here for additional Ozempic injection teaching. Note, this is the 2nd time this patient has come in for injection teaching and she successfully administered the medication in office on her own the first time. The pt arrived and I confirmed her name and . I asked her to show me how she has been injecting at home. I guided the patient through the self administration process with her Ozempic pen. The pt administered her medication successfully and stated that she feels comfortable self administering herOzempic going forward. She was instructed to contact us if she any further issues or questions. Shewill increase to 0.5mg next week. documented in this encounter Plan of Treatment Upcoming Encounters Date Type Department Care Team (Late st Contact Info) Description 04/21/2024 12:30 PM EST Imaging Radiology [address] [place] [address] 06/10/2024 10:40 AM EST Nutrition Services Nutrition & Weight Management, [facility] 132 [place] [address] Layla Ramesh RDN 132 [place] [address] 08/07/2024 10:20 AM EDT Office Visit Rheumatology [address] [place] [phone] Kevin Sánchez MD [address] [employer] [place] [address] 08/07/2024 12:40 PM EDT Office Visit Nutrition & Weight Management, [facility] [address] [place] [address] Amberly Barrera PA-C [address] [place] [address] 09/29/2024 8:50 AM EDT Office Visit Family Medicine [address] [place] [phone] [address] [place] [address] Scheduled Procedures Name Priority Associated Diagnoses Date/Ti me COLONOSCOPY FLEXIBLE PROXIMA L DIAGNOSTIC Recall Family history of colonic polyps Health Maintenance Due Date Last Done Comments Sigmoidoscopy 08/12/2003 Fecal Occult Blood Test 06/07/2018 06/07/19, 08/13/2014, 07/30/2013, Additional history exists Depression Screening 05/26/2020 05/26/2019 Colonoscopy 12/06/2023 12/05/2018, 12/05/2018 COVID-19 Vaccine ( season) 2023 01/30/2022, 10/10/2021, 02/21/2021, Additional history exists Colorectal Cancer Screening 03/10/2024 Mammogram 04/16/2024 04/16/2023, 05/2023, 04/12/2022, Additional history exists GFR 02/03/2025 02/04/2024, 100 05/2022, 06/05/2022, Additional history exists Albumin/Creatinine Ratio 12/05/2025 12/05/2022, 01/13 Diabetes Screening 02/03/2027 02/04/2024, 0 07/02/2023, 01/14/2023, Additional history exists Cologuard 03/09/2027 03/09/2024 DTap/Tdap Vaccines (3 - Td or Tdap) [...] Not on filedocumented as of this encounter Care Teams Silo Tender Relationship Specialty Start Date End Date Katja Priest DO [address] [place] [address] [place] [address] PCP - General Internal Medicine 07/02/23 documented as of this encounter
--- OUTSIDE RECORDS SUMMARY | 2024-05-27 05:47 | External Medical Summary | Summary of Care ---
Author Name Unknown Organization [facility] Address [address] [facility] [place] [address] Phone [phone] Care Team Providers Care Automatic Shirring Machine Operator Name Role Phone PriestKatja gaming Primary Care Provider [phone] Encounter Details Date Type Department Care Team (Late st Contact Info) Description 05/05/2024 Population Health External Data Unspecified Department Allergies No known active allergiesdocumented as of this encounter (statuses as of 05/05/2024) Medications GNP VITAMIN B-12 1000 MCG PO [...] factor (HCC) Take 1 Tablet by mouth in the morning. In the morning.. 90 Tablet 2 02/04/20 24 Active Atorvastatin Calcium 10 MG Oral Tablet (Lipitor) TAKE ONE TABLET BY MOUTH EVERY DAY 90 Tablet 3 02/27/20 24 Active Ozempic (0.25 or 0.5 MG/DOSE) 2 MG/3ML Solution Pen-injector (Semaglutide(0.25 or 0.5MG/DOS))Indica tions:DM type 2, goal HbA1c < 7% (HCC) Inject 0.25mg under the skin once weekly [...] as of this encounter (statuses as of 05/05/2024) Active Problems Problem Noted Date Diagnosed Date [...] as of this encounter (statuses as of 05/05/2024) Resolved Problems Problem Noted Date Diagnosed Date [...] as of this encounter (statuses as of 05/05/2024) Immunizations Name Administration Dates Next Due COVID-19 mRNA, LNP-s, No Pre serve, 2-Dose Series (Moderna) 02/21/2021,08/12/2020,07/08/2020 COVID-19, LNP-s, No Preserve , Ld-sucrose, Ages 12+ (NuMedii) 10/10/2021 Covid-19, Mrna, Lnp-s, Pf, B ivalent, 30 Mcg, IM, 12 yrs and above (Pfizer) 01/30/2022 PPD 08/24/2011 Pneumococcal Conjugate Vacc, 13 Valent (Prevnar) 02/26/2019 Pneumococcal Conjugate Vacci ne, 20-valent ([id number]) 02/04/2024 Pneumococcal Polysaccharide PPV23 (Pneumovax) 04/24/2013,03/08/2008 Seasonal [...] EST Nutrition Services Nutrition & Weight Management, [facility] 132 [place] [address] Layla Ramesh RDN 132 [place] [address] 08/07/2024 10:20 AM EDT Office Visit Rheumatology [address] [place] [phone] Kevin Sánchez MD [address] [place] [address] [place] [address] 08/07/2024 12:40 PM EDT Office Visit Nutrition & Weight Management, [facility] 132 [place] [address] Amberly Barrera PA-C 132 [place] [address] 09/29/2024 8:50 AM EDT Office Visit Family Medicine [address] [place] [phone] [place] [address] 04/22/2025 12:30 PM EST Imaging Radiology [address] [place] [address] Scheduled Procedures Name Priority Associated Diagnoses Date/Ti me COLONOSCOPY FLEXIBLE PROXIMA L DIAGNOSTIC Recall Family history of colonic polyps Health Maintenance Due Date Last Done Comments Sigmoidoscopy 08/12/2003 Fecal Occult Blood Test 06/07/2018 06/07/19 18, 08/13/2014, 07/30/2013, Additional history exists Depression Screening 05/26/2020 05/26/2019 Colonoscopy 12/06/2023 12/05/2018, 12/05/2018 COVID-19 Vaccine ( season) 2023 01/30/2022, 10/10/2021, 02/21/2021, Additional history exists Colorectal Cancer Screening 04/23/2024 GFR 02/03/2025 02/04/2024, 05/2022, 06/05/2022, Additional history exists Mammogram 04/21/2025 04/21/2024, 05/2023, 04/16/2023, Additional history exists Albumin/Creatinine Ratio 12/05/2025 12/05/2022, 01/13 Diabetes Screening 02/03/2027 02/04/2024, 0 07/02/2023, 01/14/2023, Additional history exists Cologuard 04/22/2027 04/22/2024 DTap/Tdap Vaccines (3 - Td or Tdap) [...] filedocumented as of this encounter Care Teams Automatic Shirring Machine Operator Relationship Specialty Start Date End Date Katja Priest DO [address] [place] [address] [place] [phone] PCP - General Internal Medicine 07/02/23 documented as of this encounter
--- OUTSIDE RECORDS SUMMARY | 2024-05-27 05:47 | External Medical Summary | Summary of Care ---
Author Name Unknown Organization [facility] Address [address] [facility] [place] [address] Phone [phone] Care Team Providers Care Grounds Foreman Name Role Phone PriestKatja gaming Primary Care Provider [phone] Reason for Visit * Reason Comments Nurse [...] EST Nurse Only Nutrition & Weight Management, [facility] 132 [facility] [place] [address] DawsonNurse Sepideh medrano Nutrition [facility] 132 [facility] [address] Nurse Documentation (The pt is here for [...] (Dulaglutide)Charlotte cations:Type 2 diabetes mellitus without complications ([facility]) Inject 0.75 mg subcutaneously once a week 2 mL 5 12/13/19 24 Active Enbrel SureClick 50 MG/ML Subcutaneous Solution Auto-injector (Etanercept)Indic ations:Arthritis, rheumatoid ([facility]) Inject 50 mg (1 pen) under the skin once a week. 4 mL 5 4 9:20 AM EST 01/08/20 24 Active Furosemide 40 MG Oral Tablet (Lasix)Indication s:Generalized edema TAKE ONE TABLET BY MOUTH EVERY DAY NEEDED 90 Tablet 1 01/14/20 24 Active Naltrexone HCl 50 MG Oral Tablet (Revia)Indication s:Generalized anxiety disorder,Morbid obesity with BMI of 40.0-44.9, adult ([facility]) TAKE 1/2 TABLET BY MOUTH IN THE MORNING AND ONE-HALF TABLET AT BEDTIME 90 Tablet 02/07/20 24 Active Folic Acid 1 MG Oral TabletIndications :Rheumatoid arthritis involving multiple sites with positive rheumatoid factor ([facility]) Take 1 Tablet by mouth in the morning. In the morning.. 90 Tablet 2 02/04/20 24 Active Atorvastatin Calcium 10 MG Oral Tablet (Lipitor) TAKE ONE TABLET BY MOUTH EVERY DAY 90 Tablet 3 02/27/20 24 Active Ozempic (0.25 or 0.5 MG/DOSE) 2 MG/3ML Solution Pen-injector (Semaglutide(0.25 or 0.5MG/DOS))Indica tions:DM type 2, goal HbA1c < 7% ([facility]) Inject 0.25mg under the skin once [...] (Prevnar) 02/26/2019 Pneumococcal Conjugate Vacci ne, 20-valent ([id number]) 02/04/2024 Pneumococcal Polysaccharide PPV23 (Pneumovax) 04/24/2013,03/08/2008 Seasonal [...] Description 04/21/2024 12:30 PM EST Imaging Radiology [address] [place] [address] 06/10/2024 10:40 AM EST Nutrition Services Nutrition & Weight Management, [facility] 132 [place] [address] Layla Ramesh RDN 132 [place] [address] 08/07/2024 10:20 AM EDT Office Visit Rheumatology [address] [place] [phone] Kevin Sánchez MD [address] [place] [address] 08/07/2024 12:40 PM EDT Office Visit Nutrition & Weight Management, [facility] [address] [place] [address] Amberly Barrera PA-C [address] [place] [address] 09/29/2024 8:50 AM EDT Office Visit Family Medicine [address] [place] [phone] [address] [place] [address] Scheduled Procedures Name Priority Associated Diagnoses Date/Ti [...] filedocumented as of this encounter Care Teams Grounds Foreman Relationship Specialty Start Date End Date Katja Priest DO [address] [place] [address] [place] [address] PCP - General Internal Medicine 07/02/23 documented as of this encounter
--- OUTSIDE RECORDS SUMMARY | 2024-05-27 05:47 | External Medical Summary | Summary of Care ---
Author Name Unknown Organization [facility] Address [address] [facility] [place] [address] Phone [phone] Care Team Providers Care Restaurant Associate Name Role Phone Katja Priest DO Primary Care Provider [phone] Encounter Details Date Type Department Care Team (Late st Contact Info) Description 04/17/2024 Telephone Nutrition & Weight Management, [facility] [address] [place] [address] Amberly Barrera PA-C [address] [place] [address] Allergies No known active allergiesdocumented as of [...] (Prevnar) 02/26/2019 Pneumococcal Conjugate Vacci ne, 20-valent ([id number]) 02/04/2024 Pneumococcal Polysaccharide PPV23 (Pneumovax) 04/24/2013,03/08/2008 Seasonal [...] Description 04/21/2024 12:30 PM EST Imaging Radiology [address] [place] [address] 06/10/2024 10:40 AM EST Nutrition Services Nutrition & Weight Management, [facility] 132 [place] [address] Layla Ramesh RDN 132 [place] [address] 08/07/2024 10:20 AM EDT Office Visit Rheumatology [address] [place] [phone] Kevin Sánchez MD [facility] [facility] [place] [address] 08/07/2024 12:40 PM EDT Office Visit Nutrition & Weight Management, [facility] [address] [place] [address] Amberly Barrera PA-C [address] [place] [address] 09/29/2024 8:50 AM EDT Office Visit Family Medicine [address] [place] [phone] Katja Priest[address] [place] [address] Scheduled Procedures Name Priority Associated Diagnoses Date/Ti [...] 04/12/2022, Additional history exists GFR 02/03/2025 02/04/2024, 05/2022, 06/05/2022, Additional history exists Albumin/Creatinine Ratio [...] filedocumented as of this encounter Care Teams Restaurant Associate Relationship Specialty Start Date End Date Katja Priest DO [address] [place] [address] [place] [address] PCP - General Internal Medicine 07/02/23 documented as of this encounter
--- OUTSIDE RECORDS SUMMARY | 2024-05-27 05:47 | External Medical Summary | Summary of Care ---
Author Name Unknown Organization [facility] Address [address] [facility] [place] [address] Phone [phone] Care Team Providers Care Process Control Engineer Name Role Phone Katja Priest DO Primary Care Provider Encounter Details Date Type Department Care Team (Late st Contact Info) Description 04/21/2024 12:30 PM EST Imaging Radiology [address] [place] [address] Other screening mammogram Allergies No known active allergiesdocumented as of this encounter (statuses as of 04/23/2024) Medications GNP VITAMIN B-12 1000 MCG PO [...] as of this encounter (statuses as of 04/23/2024) Active Problems Problem Noted Date Diagnosed Date [...] as of this encounter (statuses as of 04/23/2024) Resolved Problems Problem Noted Date Diagnosed Date [...] as of this encounter (statuses as of 04/23/2024) Immunizations Name Administration Dates Next Due COVID-19 mRNA, LNP-s, No Pre serve, 2-Dose Series (Moderna) 02/21/2021,08/12/2020,07/08/2020 COVID-19, LNP-s, No Preserve , Ld-sucrose, Ages 12+ (Pfizer) 10/10/2021 Covid-19, Mrna, Lnp-s, Pf, B ivalent, 30 Mcg, IM, 12 yrs and above (Pfizer) 01/30/2022 PPD 08/24/2011 Pneumococcal Conjugate Vacc, 13 Valent (Prevnar) 02/26/2019 Pneumococcal Conjugate Vacci ne, 20-valent ([id number]) 02/04/2024 Pneumococcal Polysaccharide PPV23 (Pneumovax) 04/24/2013,03/08/2008 Seasonal [...] EST Nutrition Services Nutrition & Weight Management, [facility] 132 [place] [address] Layla Ramesh RDN 132 [place] [address] 08/07/2024 10:20 AM EDT Office Visit Rheumatology [address] [place] [phone] Kevin Sánchez MD [address] [place] [address] [place] [address] 08/07/2024 12:40 PM EDT Office Visit Nutrition & Weight Management, [facility] 132 [place] [address] Amberly Barrera PA-C 132 [place] [address] 09/29/2024 8:50 AM EDT Office Visit Family Medicine [address] [place] [phone] Katja Priest[address] [place] [address] 04/22/2025 12:30 PM EST Imaging Radiology [address] [place] [address] Scheduled Procedures Name Priority Associated Diagnoses Date/Ti me COLONOSCOPY FLEXIBLE PROXIMA L DIAGNOSTIC Recall Family history of colonic polyps Health Maintenance Due Date Last Done Comments Sigmoidoscopy 08/12/2003 Fecal Occult Blood Test 06/07/2018 06/07/19 18, 08/13/2014, 07/30/2013, Additional history exists Depression Screening 05/26/2020 05/26/2019 Colonoscopy 12/06/2023 12/05/2018, 12/05/2018 COVID-19 Vaccine ( season) 2023 01/30/2022, 10/10/2021, 02/21/2021, Additional history exists Colorectal Cancer Screening 03/10/2024 GFR 02/03/2025 02/04/2024, 05/2022, 06/05/2022, Additional history [...] Procedure Name Priority Date/Time Associated Diagnosis Comments MAMMOGRAM SCREENING ALETHEA BILATERAL Routine 04/21/2024 12:33 PM EST Other screening mammogram documented in this encounter Results * MAMMOGRAM SCREENING ALETHEA BILATERAL (04/21/2024 12:33 PM EST) Anatomical Region Laterality Modality Breast Bilateral Mammography Narrative 04/21/2024 12:54 PM EST Result MAMMOGRAM SCREENING ALETHEA BILATERAL History Other screening mammogram Family medical history includes breast cancer in 3 relatives (cousin (maternal), cousin (maternal), mother). Films Compared 04/16/2023 MAMMOGRAM SCREENING ALETHEA BILATERAL, 04/12/2022 MAMMOGRAM SCREENING BILATERAL, 04/11/2021 MAMMOGRAM SCREENING BILATERAL, 03/04/2020 MAMMOGRAM SCREENING BILATERAL, and 08/19/2018 MAMMOGRAM SCREENING BILATERAL Findings There are scattered areas of fibroglandular density. There is no evidence of suspicious masses, calcifications, or other abnormal findings. Impression Bilateral No mammographic evidence of malignancy. BI-RADS Category: 1 - Negative. Recommendation Screening mammogram in 1 year is recommended for both breasts. Digital breast tomosynthesis was performed. This digital mammogram has been analyzed with the computer aided detection system. Breast tissue can be either dense or not dense. Dense tissue makes it harder to find breast cancer on a mammogram and also raises the risk of developing breast cancer. Your breast tissue is not dense. Talk to your healthcare provider about breast density, risks for breast cancer, and your individual situation. This examination was performed at [address] [address]. [phone] Katja Priest DO RAD MAMMOGRAPHY Final Result documented in this encounter Visit Diagnoses Diagnosis Other screening mammogram Screening mammogram for breast cancer documented in this encounter Care Teams Process Control Engineer Relationship Specialty Start Date End Date Katja Priest DO [address] [place] [address] [place] [address] PCP - General Internal Medicine 07/02/23 documented as of this encounter
--- OUTSIDE RECORDS SUMMARY | 2024-05-27 05:47 | External Medical Summary | Summary of Care ---
Author Name Unknown Organization [facility] Address [address] [facility] [place] [address] Phone [phone] Care Team Providers Care Teleprinter Name Role Phone Katja Priest DO Primary Care Provider [phone] Encounter Details Date Type Department Care Team (Late st Contact Info) Description 04/17/2024 Telephone Nutrition & Weight Management, [facility] [address] [place] [address] Amberly Barrera PA-C [address] [place] [address] Allergies No known active allergiesdocumented as of [...] (Prevnar) 02/26/2019 Pneumococcal Conjugate Vacci ne, 20-valent ([id number]) 02/04/2024 Pneumococcal Polysaccharide PPV23 (Pneumovax) 04/24/2013,03/08/2008 Seasonal [...] encounter Miscellaneous Notes * Telephone Encounter - Sean Carlson LPN - 04/17/2024 8:35 AM EST The patient called in and she is still having troubles self administering her Ozempic. She is coming in today 04/17/2024 at 10am for additional injection teaching. documented in this encounter Plan of Treatment Upcoming Encounters Date Type Department Care Team (Late st Contact Info) Description 04/17/2024 10:00 AM EST Nurse Only Nutrition & Weight Management, [facility] 132 [facility] [place] [address] Samir Nurse Gi Nutrition [facility] 132 [facility] [place] [address] 04/21/2024 12:30 PM EST Imaging Radiology [address] [place] [address] 06/10/2024 10:40 AM EST Nutrition Services Nutrition & Weight Management, [facility] 132 [facility] [place] [address] Layla Ramesh RDN 132 [facility] [place] [address] 08/07/2024 10:20 AM EDT Office Visit Rheumatology [address] [place] [phone] Kevin Sánchez MD [address] [place] [address] [place] [address] 09/29/2024 8:50 AM EDT Office Visit Family Medicine [address] [place] [phone] [place] [address] Scheduled Procedures Name Priority Associated Diagnoses Date/Ti [...] Colorectal Cancer Screening 03/10/2024 Mammogram 04/16/2024 04/16/2023, 0 05/2023, 04/12/2022, Additional history exists GFR 02/03/2025 [...] filedocumented as of this encounter Care Teams Teleprinter Relationship Specialty Start Date End Date Katja Priest DO [address] [place] [address] [place] [address] PCP - General Internal Medicine 07/02/23 documented as of this encounter
--- OUTSIDE RECORDS SUMMARY | 2024-05-27 05:47 | External Medical Summary | Summary of Care ---
Author Name Unknown Organization [facility] Address [address] [facility] [place] [address] Phone [phone] Care Team Providers Care Live In Caregiver Name Role Phone Katja Priest DO Primary Care Provider [phone] Encounter Details Date Type Department Care Team (Late st Contact Info) Description 04/17/2024 Telephone Nutrition & Weight Management, [facility] [address] [place] [address] Amberly Barrera PA-C [address] [place] [address] Allergies No known active allergiesdocumented as of [...] (Prevnar) 02/26/2019 Pneumococcal Conjugate Vacci ne, 20-valent ([id number]) 02/04/2024 Pneumococcal Polysaccharide PPV23 (Pneumovax) 04/24/2013,03/08/2008 Seasonal [...] EST Nurse Only Nutrition & Weight Management, [facility] 132 [facility] [place] [address] Samir Nurse Gi Nutrition [facility] 132 [facility] [place] [address] 04/21/2024 12:30 PM EST Imaging Radiology [address] [place] [address] 06/10/2024 10:40 AM EST Nutrition Services Nutrition & Weight Management, [facility] 132 [facility] [place] [address] Layla Ramesh RDN 132 [facility] [place] [address] 08/07/2024 10:20 AM EDT Office Visit Rheumatology [address] [place] [phone] Kevin Sánchez MD [address] [place] [address] [place] [address] 09/29/2024 8:50 AM EDT Office Visit Family Medicine [address] [place] [phone] [place] [address] Scheduled Procedures Name Priority Associated Diagnoses Date/Ti [...] filedocumented as of this encounter Care Teams Live In Caregiver Relationship Specialty Start Date End Date Katja Priest DO [address] [place] [address] [place] [address] PCP - General Internal Medicine 07/02/23 documented as of this encounter
--- OUTSIDE RECORDS SUMMARY | 2024-05-27 05:48 | External Medical Summary | Summary of Care ---
Author Name Unknown Organization [facility] Address [address] [facility] [place] [address] Phone [phone] Care Team Providers Care Traverse Rod Assembler Name Role Phone Katja Priest DO Primary Care Provider [phone] Reason for Visit * Reason Comments NEW PATIENT New patient; would l gus tips on how to eat healthy; struggling with feeling full Neck 15.5 inWaist 52 * Evaluate & Treat - Unlimited Visits (Within 10 days (routine)) - Authorized Specialty Diagnoses / Procedures Referred By Contact Referred To Contact GI NUTRITION/IM / Gastroenterology Diagnoses Morbid obesity with BMI of 40.0-44.9, adult (HCC) Katja Priest DO [address] [place] [address] [place] [address] Phone: tel: fax: Referral ID Status Reason Start Date Expiration Date Visits Requested Visits Authorized [id number] Authorized Specialty Services Required [phone] Encounter Details Date Type Department Care Team (Late st Contact Info) Description 03/06/2024 1:40 PM EST Office Visit Nutrition & Weight Management, [facility] [address] [place] [address] Amberly Barrera PA-C [address] [place] [address] Morbid obesity due to excess calories (HCC)*; Abnormal weight gain; DM type 2, goal HbA1c < 7% (HCC); Primary hypertension; Heartburn; Generalized osteoarthritis; Rheumatoid arthritis involving multiple sites with positive rheumatoid factor (HCC) Allergies No known active allergiesdocumented as of this encounter (statuses as of 03/06/2024) Medications GNP VITAMIN B-12 1000 MCG PO [...] (Dulaglutide)Charl[place] cations:Type 2 diabetes mellitus without complications ([facility]) Inject 0.75 mg subcutaneously once a week 2 mL 5 12/13/19 24 Active Enbrel SureClick 50 MG/ML Subcutaneous Solution Auto-injector (Etanercept)Indic ations:Arthritis, rheumatoid ([facility]) Inject 50 mg (1 pen) under the skin once a week. 4 mL 5 4 9:27 AM EDT 01/08/20 24 Active Furosemide 40 MG Oral Tablet (Lasix)Indication s:Generalized edema TAKE ONE TABLET BY MOUTH EVERY DAY NEEDED 90 Tablet 1 01/14/20 24 Active Diclofenac Sodium 50 MG Oral Tablet Delayed Release (Voltaren)Indicat ions:Generalized osteoarthritis,Rh eumatoid arthritis involving multiple sites with positive rheumatoid factor ([facility]) TAKE ONE TABLET BY MOUTH THREE TIMES DAILY NEEDED FOR PAIN, TAKE WITH FOOD 90 Tablet 01/24/20 Active Naltrexone HCl 50 MG Oral Tablet (Revia)Indication s:Generalized anxiety disorder,Morbid obesity with BMI of 40.0-44.9, adult ([facility]) TAKE 1/2 TABLET BY MOUTH IN THE MORNING AND ONE-HALF TABLET AT BEDTIME 90 Tablet 02/07/20 Active Folic Acid 1 MG Oral TabletIndications :Rheumatoid arthritis involving multiple sites with positive rheumatoid factor ([facility]) Take 1 Tablet by mouth in the morning. In the morning.. 90 Tablet 2 02/04/20 Active Atorvastatin Calcium 10 MG Oral Tablet (Lipitor) TAKE ONE TABLET BY MOUTH EVERY DAY 90 Tablet 3 02/27/20 24 Active Ozempic (0.25 or 0.5 MG/DOSE) 2 MG/3ML Solution Pen-injector (Semaglutide(0.25 or 0.5MG/DOS))Indica tions:DM type 2, goal HbA1c < 7% ([facility]) Inject 0.25mg under the skin once weekly for 4 weeks then increase to 0.5mg under the skin once weekly thereafter 9 mL 1 03/06/20 24 Active documented as of this encounter (statuses as of 03/06/2024) Active Problems Problem Noted Date Diagnosed Date [...] as of this encounter (statuses as of 03/06/2024) Resolved Problems Problem Noted Date Diagnosed Date [...] as of this encounter (statuses as of 03/06/2024) Immunizations Name Administration Dates Next Due COVID-19 mRNA, LNP-s, No Pre serve, 2-Dose Series (Moderna) 02/21/2021,08/12/2020,07/08/2020 COVID-19, LNP-s, No Preserve , Ld-sucrose, Ages 12+ (Pfizer) 10/10/2021 Covid-19, Mrna, Lnp-s, Pf, B ivalent, 30 Mcg, IM, 12 yrs and above (Pfizer) 01/30/2022 PPD 08/24/2011 Pneumococcal Conjugate Vacc, 13 Valent (Prevnar) 02/26/2019 Pneumococcal Conjugate Vacci ne, 20-valent ([id number]) 02/04/2024 Pneumococcal Polysaccharide PPV23 (Pneumovax) 04/24/2013,03/08/2008 Seasonal [...] Sign Reading Time Taken Comments Blood Pressure 142/64 03/06/2024 1:45 PM EST Pulse 65 03/06/2024 1:45 PM EST Temperature 36.6 C (97.9 F) 03/06/2024 1:45 PM ES T Respiratory Rate 20 03/06/2024 1:45 PM EST Oxygen Saturation 96% 03/06/2024 1:45 PM EST Inhaled Oxygen Concentration - - Weight 115.5 kg (254 lb 9.6 oz) 03/06/2024 1:45 PM EST Height 159.4 cm (5' 2.75") 03/06/2024 1:45 PM ES T Body Mass Index 45.46 03/06/2024 1:45 PM EST documented in this encounter Progress Notes * Amberly Barrera PA-C - 03/06/2024 1:45 PM EST [facility] Note Nursing Notes: Nina Jimenez, RN 03/06/24 1349 Signed Chief Complaint Patient presents with NEW PATIENT New patient; would like tips on how to eat healthy; struggling with feeling full Neck 15.5 in Waist 52 Sugey Schuler presents in follow up to the comprehensive weight management clinic. The patient is a 63 year old female Wt Readings from Last 6 Encounters: 03/06/24 115.5 kg (254 lb 9.6 oz) 02/04/24 117 kg (258 lb) 08/05/23 110.7 kg (244 lb) 07/02/23 108.5 kg (239 lb 3.2 oz) 12/05/22 103 kg (227 lb) 09/04/22 102.1 kg (225 lb) Patient is receiving ongoing education regarding dietary and physical modifications for weight loss. - Initial clinic visit 2013. Weight at that time was 255 lbs - Today's weight: 254 lbs - Total weight loss of -1 lbs since initial weight in clinic - Patient's last follow up with GI/Nutrition clinic was on 01/30/22. 246lbs - The patient's weight has +8 lbs since the last visit 03/06/24 -here to re establish - last seen 01/30/22 -had previously used wellbutrin/naltrexone, phentermine - no response -recently gave up ice cream and chips -using Trulicity 0.75mg - helped a little -using wellbutrin/naltrexone - not sure it helps much Patient Active Problem List Diagnosis Heartburn Full dentures Generalized osteoarthritis Rheumatoid arthritis involving multiple sites with positive rheumatoid factor ([facility]) Encounter for long-term (current) use of medications Macrocytic anemia Thrombocytopenia ([facility]) Primary hypertension Morbid obesity with BMI of 40.0-44.9, adult ([facility]) Review of Systems: Review of Systems Musculoskeletal: Positive for arthralgias and back pain. All other systems reviewed and are negative. Current Medications: Current Outpatient Medications Medication Sig Dispense Refill GNP VITAMIN B-12 1000 MCG PO TBCR Take 1 Tablet by mouth daily. Cetirizine HCl 10 MG Oral Tablet (ZyrTEC) Take 1 Tablet by mouth in the morning. buPROPion HCl ER (SR) 150 MG Oral Tablet Extended Release 12 Hour (Wellbutrin SR) Take 1 Tablet by mouth in the morning and 1 Tablet before bedtime. 180 Tablet 1 Omeprazole 20 MG Oral Capsule Delayed Release (PriLOSEC) TAKE ONE CAPSULE BY MOUTH EVERY DAY ONE hour BEFORE first meal of THE DAY 90 Capsule 1 Irbesartan 150 MG Oral Tablet (Avapro) TAKE ONE TABLET BY MOUTH BEFORE bedtime 90 Tablet 3 Trulicity 0.75 MG/0.5ML Subcutaneous Solution Pen-injector (Dulaglutide) Inject 0.75 mg subcutaneously once a week 2 mL 5 Enbrel SureClick 50 MG/ML Subcutaneous Solution Auto-injector (Etanercept) Inject 50 mg (1 pen) under the skin once a week. 4 mL 5 Furosemide 40 MG Oral Tablet (Lasix) TAKE ONE TABLET BY MOUTH EVERY DAY NEEDED 90 Tablet 1 Diclofenac Sodium 50 MG Oral Tablet Delayed Release (Voltaren) TAKE ONE TABLET BY MOUTH THREE TIMESDAILY NEEDED FOR PAIN, TAKE WITH FOOD 90 Tablet 0 Naltrexone HCl 50 MG Oral Tablet (Revia) TAKE 1/2 TABLET BY MOUTH IN THE MORNING AND ONE-HALF TABLET AT BEDTIME 90 Tablet 0 Folic Acid 1 MG Oral Tablet Take [...] skin once weekly thereafter 9 mL 1 Cholecalciferol (VITAMIN D3) 2000 UNITS Capsule Take 1 Cap by mouth daily. (Patient not taking: Reported on 03/06/2024) 30 Cap 5 No current facility-administered medications for this visit. Water intake: yes Prescribed diet: 9350-6531 Calorie Controlled Current diet: Breakfast-- PB sandwich - on 647 bread Snack-- applesauce Lunch-- precooked chicken, salad Snack-- cookies, sweets Dinner-- chicken elissa, can of peas Snack-- skinny pop Drinks-- Sprite zero Meals Away from Home-- 1x per week or less Food logs: No Type of exercise: ADL, chair exercises - more setting recently Weight loss Pharmacotherapy: yes Wellbutrin 150 mg mg Twice a day Naltrexone 25 mg mg Twice a day BP 142/64 | Pulse 65 | Temp 36.6 C (97.9 F) | Resp 20 | Ht 1.594 m (5' 2.75") | Wt 115.5 kg (254 lb 9.6 oz) | LMP 10/13/2006 | SpO2 96% | BMI 45.46 kg/m | BSA 2.26 m PHYSICAL EXAMINATION: General: Patient awake alert and oriented. Patient is well appearing and in no acute distress. Skin: No rashes. HEENT: Head is atraumatic, normocephalic. EOMs intact Abdomen: Obese Neuro: No focal deficits Psych: Appropriate mood and affect. Assessment and Plan: Abnormal weight gain / Body mass index is 45.46 kg/m. / Morbid obesity : - Would like to proceed with medical management - Barriers are consistency. - Motivators are feeling better overall, avoiding/reducing co-morbid conditions. - The patient was encouraged to to avoid all fruit juices and regular sodas, consume at least 64 ounces of water per day, keep food logs and get weighed on a weekly basis. They were encouraged to increase physical activity as prescribed. - Handouts regarding nutrition and physical activity were provided, as appropriate. 1. Keep a food log. If you bite it, write it! Apps like LiveU or Snapspal Calorie goal: 0918-9570 2. Drink 48-64 ounces of non-caloric beverages per day. No fruit juices or regular soda Try crystal light, propel, zero calorie flavored water, plain water 3. Goal of 30 minutes of exercise 5 days per week (150 minutes per week--can be divided up however you would like) Aim for aerobic activity and muscle strengthening activities 4. Increase fruit and vegetable servings to 5-6 per day. 1/2 of your plate should be fruits and vegetables 5. Eat 100-200 calories within 1-2 hours of awakening, and every 4 - 6 hours while awake. (3 meals with snacks in between) Choose 100 calorie or less snacks, protein snacks 7. Weight yourself weekly and follow trend over time (day to day weight fluctuations can be discouraging) 8. Decrease starches like bread, pasta, cereal, potatoes and corn. Aim for of your plate Try substitutions like zoodles, lentil pasta, cauliflower mashed potatoes, whole grain foods, quinoa Limit junk/processed foods Chips, pretzels, cookies, cakes, sweets White bread/rolls/wraps/bagels, white rice 9. Increase protein to feel full longer (1/4 of your plate) Sugey was seen today for new patient. Diagnoses and all orders for this visit: Morbid obesity due to excess calories (HCC) -switch from Trulicity to Ozempic 0.25mg -add protein and fruit/veggie 3x per day -add home exercise program Abnormal weight gain DM type 2, goal HbA1c < 7% (HCC) - Ozempic (0.25 or 0.5 MG/DOSE) 2 MG/3ML Solution Pen-injector (Semaglutide(0.25 or 0.5MG/DOS)); Inject 0.25mg under the skin once weekly for 4 weeks then increase to 0.5mg under the skin once weeklythereafter Primary hypertension -continue current regimen Heartburn Generalized osteoarthritis Rheumatoid arthritis involving multiple sites with positive rheumatoid factor (HCC) The patient agreed to try the plan as discussed and return in 1 month. They were encouraged to callor send a patient portal message in the meantime with any questions or concerns prior to their nextclinic visit. I spent a total of 40 minutes on the date of service in preparation, delivery, and documentation ofthe care provided to Sugey Schuler excluding any time spent in the performance of separately billed services. This included but was no limited to providing counseling about the benefits of weight loss, about their nutritional status, detailed explanations about calorie count, types of nutrients to choose, and composition of the meals. Motivational interview provided in order to prepare the patient to achieve future goals. Amberyl Barrera PA-C documented in this encounter Nursing Notes * Nina Jimenez, RN - 03/06/2024 1:49 PM EST Chief Complaint Patient presents with NEW PATIENT New patient; would like tips on how to eat healthy; struggling with feeling full Neck 15.5 in Waist 52 documented in this encounter Plan of Treatment Upcoming Encounters Date Type Department Care Team (Late st Contact Info) Description 04/21/2024 12:30 PM EST Imaging Radiology [address] [place] [address] 06/10/2024 11:00 AM EST Nutrition Services Nutrition & Weight Management, [facility] [address] [place] [address] Layla Ramesh RDN 132 [place] [address] 08/07/2024 10:20 AM EDT Office Visit Rheumatology [address] [place] [phone] Kevin Sánchez MD [facility] [facility] [place] [address] 09/29/2024 8:50 AM EDT Office Visit Family Medicine [address] [place] [phone] [address] [place] [address] Scheduled Procedures Name Priority Associated Diagnoses Date/Ti me COLONOSCOPY FLEXIBLE PROXIMA L DIAGNOSTIC Recall Family history of colonic polyps Health Maintenance Due Date Last Done Comments Cologuard 08/12/2003 Sigmoidoscopy 08/12/2003 Fecal Occult Blood Test 06/07/2018 06/07/19 18, 08/13/2014, 07/30/2013, Additional history exists Depression Screening 05/26/2020 05/26/2019 Colonoscopy 12/06/2023 12/05/2018, 12/05/2018 Colorectal Cancer Screening 12/06/2023 COVID-19 Vaccine ( season) 2023 01/30/2022, 10/10/2021, 02/21/2021, Additional history exists Mammogram 04/16/2024 04/16/2023, 05/2023, 04/12/2022, Additional history exists GFR 02/03/2025 02/04/2024, 05/2022, 06/05/2022, Additional history exists Albumin/Creatinine Ratio 12/05/2025 12/05/2022, 01/13 Diabetes Screening 02/03/2027 02/04/2024, 0 07/02/2023, 01/14/2023, Additional history exists DTap/Tdap Vaccines (3 - Td or Tdap) [...] 02/20/2023, 02/20/2023, Additional history exists Pneumococcal Vaccine: 65+ Years Completed 02/04/2024, 02/26/2019, 04/24/2013, Additional history [...] as of this encounter Visit Diagnoses Diagnosis Morbid obesity due to excess calories (HCC)- Primary Abnormal weight gain DM type 2, goal HbA1c < 7% (HCC) Primary hypertension Unspecified essential hypertension Heartburn Generalized osteoarthritis Generalized osteoarthrosis, unspecified site Rheumatoid arthritis involving multiple sites with positive rheumatoid factor (HCC) documented in this encounter Care Teams Traverse Rod Assembler Relationship Specialty Start Date End Date Katja Priest DO [address] [place] [address] [place] [address] PCP - General Internal Medicine 07/02/23 documented as of this encounter
--- OUTSIDE RECORDS SUMMARY | 2024-05-27 05:48 | External Medical Summary | Summary of Care ---
Author Name Unknown Organization [facility] Address [address] [facility] [place] [address] Phone [phone] Care Team Providers Care Piping Engineer Name Role Phone Katja Priest DO Primary Care Provider [phone] Reason for Visit * Reason Comments NEW [...] of 40.0-44.9, adult (HCC) Katja Priest DO [address] [place] [address] [place] [address] Phone: tel: fax: Referral ID Status Reason Start Date Expiration Date Visits Requested Visits Authorized [id number] Authorized Specialty Services Required [phone] Encounter Details Date Type Department Care Team (Late st Contact Info) Description 03/06/2024 1:40 PM EST Office Visit Nutrition & Weight Management, [facility] [address] [place] [address] Amberly Barrera PA-C [address] [place] [address] Morbid obesity due to excess calories (HCC)*; [...] (Dulaglutide)Charlotte cations:Type 2 diabetes mellitus without complications ([facility]) Inject 0.75 mg subcutaneously once a week 2 mL 5 12/13/19 24 Active Enbrel SureClick 50 MG/ML Subcutaneous Solution Auto-injector (Etanercept)Indic ations:Arthritis, rheumatoid ([facility]) Inject 50 mg (1 pen) [...] involving multiple sites with positive rheumatoid factor ([facility]) TAKE ONE TABLET BY MOUTH THREE TIMES DAILY NEEDED FOR PAIN, TAKE WITH FOOD 90 Tablet 01/24/20 Active Naltrexone HCl 50 MG Oral Tablet (Revia)Indication s:Generalized anxiety disorder,Morbid obesity with BMI of 40.0-44.9, adult ([facility]) TAKE 1/2 TABLET BY MOUTH IN THE MORNING AND ONE-HALF TABLET AT BEDTIME 90 Tablet 02/07/20 Active Folic Acid 1 MG Oral TabletIndications :Rheumatoid arthritis involving multiple sites with positive rheumatoid factor ([facility]) Take 1 Tablet by mouth in the morning. In the morning.. 90 Tablet 2 02/04/20 Active Atorvastatin Calcium 10 MG Oral Tablet (Lipitor) TAKE ONE TABLET BY MOUTH EVERY DAY 90 Tablet 3 02/27/20 24 Active Ozempic (0.25 or 0.5 MG/DOSE) 2 MG/3ML Solution Pen-injector (Semaglutide(0.25 or 0.5MG/DOS))Indica tions:DM type 2, goal HbA1c < 7% ([facility]) Inject 0.25mg under the skin [...] (Prevnar) 02/26/2019 Pneumococcal Conjugate Vacci ne, 20-valent ([id number]) 02/04/2024 Pneumococcal Polysaccharide PPV23 (Pneumovax) 04/24/2013,03/08/2008 Seasonal [...] involving multiple sites with positive rheumatoid factor ([facility]) Encounter for long-term (current) use of medications Macrocytic anemia Thrombocytopenia ([facility]) Primary hypertension Morbid obesity with BMI of 40.0-44.9, adult ([facility]) Review of Systems: Review of [...] this visit. Water intake: yes Prescribed diet: 7279-2131 Calorie Controlled Current diet: Breakfast-- PB sandwich [...] you bite it, write it! Apps like Vinny or HemaSourcepal Calorie goal: 0270-6829 2. Drink 48-64 ounces of non-caloric beverages [...] prepare the patient to achieve future goals. Amberly Barrera PA-C documented in this encounter Nursing [...] Description 04/21/2024 12:30 PM EST Imaging Radiology [address] [place] [address] 06/10/2024 11:00 AM EST Nutrition Services Nutrition & Weight Management, [facility] [address] [place] [address] Layla Ramesh RDN 132 [place] [address] 08/07/2024 10:20 AM EDT Office Visit Rheumatology [address] [place] [phone] Kevin Sánchez MD [address] [facility] [place] [address] 09/29/2024 8:50 AM EDT Office Visit Family Medicine [address] [place] [phone] [address] [place] [address] Scheduled Procedures Name Priority Associated Diagnoses Date/Ti [...] (HCC) documented in this encounter Care Teams Piping Engineer Relationship Specialty Start Date End Date Katja Priest DO [address] [place] [address] [place] [address] PCP - General Internal Medicine 07/02/23 documented as of this encounter
--- OUTSIDE RECORDS SUMMARY | 2024-05-27 05:48 | External Medical Summary | Summary of Care ---
Author Name Unknown Organization [facility] Address [address] [place] [address] Phone [phone] Care Team Providers Care Hotel Yardperson Name Role Phone Luis Manuel Priestanda Ana DALE Primary Care Provider [phone] Reason for Visit * Reason Onset Date Comments FYI 04/10/2024 Nicola Encounter Details Date Type Department Care Team (Late st Contact Info) Description 04/10/2024 Telephone Hematology/Oncology [facility] [place] [facility] [address] Services, Scheduling [address] [place] [address] FYI (Nicola) Allergies No known active allergiesdocumented as of this encounter (statuses as of 04/13/2024) Medications GNP VITAMIN B-12 1000 MCG PO [...] as of this encounter (statuses as of 04/13/2024) Active Problems Problem Noted Date Diagnosed Date [...] as of this encounter (statuses as of 04/13/2024) Resolved Problems Problem Noted Date Diagnosed Date [...] as of this encounter (statuses as of 04/13/2024) Immunizations Name Administration Dates Next Due COVID-19 mRNA, LNP-s, No Pre serve, 2-Dose Series (Moderna) 02/21/2021,08/12/2020,07/08/2020 COVID-19, LNP-s, No Preserve , Ld-sucrose, Ages 12+ (Pfizer) 10/10/2021 Covid-19, Mrna, Lnp-s, Pf, B ivalent, 30 Mcg, IM, 12 yrs and above (Pfizer) 01/30/2022 PPD 08/24/2011 Pneumococcal Conjugate Vacc, 13 Valent (Prevnar) 02/26/2019 Pneumococcal Conjugate Vacci ne, 20-valent ([id number]) 02/04/2024 Pneumococcal Polysaccharide PPV23 (Pneumovax) 04/24/2013,03/08/2008 Seasonal [...] encounter Miscellaneous Notes * Telephone Encounter - Maya Falcon OSA - 04/10/2024 12:03 PM EST Pt is calling because she received a letter about scheduling her follow up appointment. She does not want to come in for a follow up. She states that she is feeling good and she will have her PCP keep up with her labs. documented in this encounter Plan of Treatment Upcoming Encounters Date Type Department Care Team (Late st Contact Info) Description 04/21/2024 12:30 PM EST Imaging Radiology [address] [place] [address] 06/10/2024 10:40 AM EST Nutrition Services Nutrition & Weight Management, [facility] [address] [place] [address] Layla Ramesh RDN [address] [place] [address] 08/07/2024 10:20 AM EDT Office Visit Rheumatology [address] [place] [phone] Kevin Sánchez MD [facility] [place] [address] 09/29/2024 8:50 AM EDT Office Visit Family Medicine [address] [place] [phone] [address] [place] [address] Scheduled Procedures Name Priority Associated Diagnoses Date/Ti [...] filedocumented as of this encounter Care Teams Hotel Yardperson Relationship Specialty Start Date End Date Katja Priest DO [address] [place] [address] [place] [address] PCP - General Internal Medicine 07/02/23 documented as of this encounter
--- OUTSIDE RECORDS SUMMARY | 2024-05-27 05:48 | External Medical Summary | Summary of Care ---
Author Name Unknown Organization [facility] Address [address] [facility] [place] [address] Phone [phone] Care Team Providers Care Telegraphic Typewriter Repairer Name Role Phone Dave Blackburn DO Primary Care Provider + [phone] Reason for Visit * Reason Onset Date Comments Medication Refill 03/11/2024 Encounter Details Date Type Department Care Team (Late st Contact Info) Description 03/11/2024 Refill Family Medicine [address] [place] [phone] Dave Blackburn DO [address] [place] [address] [place] [address] Generalized osteoarthritis; Rheumatoid arthritis involving multiple sites with positive rheumatoid factor (HCC) Allergies No known active allergiesdocumented as of this encounter (statuses as of 03/11/2024) Medications GNP VITAMIN B-12 1000 MCG PO [...] MG Oral Capsule Delayed Release (PriLOSEC)Indica tions:Heartburn TAKE ONE CAPSULE BY MOUTH EVERY DAY ONE hour BEFORE first meal of THE DAY 90 Capsule 1 11/12/19 24 Active Irbesartan 150 MG Oral Tablet (Avapro)Indicati ons:Primary hypertension TAKE ONE TABLET BY MOUTH BEFORE bedtime 90 Tablet 3 12/03/19 24 Active Trulicity 0.75 MG/0.5ML Subcutaneous Solution Pen-injector (Dulaglutide)Ind ications:Type 2 diabetes mellitus without complications ([facility]) Inject 0.75 mg subcutaneously once a week 2 mL 5 12/13/19 24 Active Enbrel SureClick 50 MG/ML Subcutaneous Solution Auto-injector (Etanercept)Charlotte cations:Arthriti s, rheumatoid ([facility]) Inject 50 mg (1 pen) under the skin once a week. 4 mL 5 4 3:46 PM EST 01/08/20 24 Active Furosemide 40 MG Oral Tablet (Lasix)Indicatio ns:Generalized edema TAKE ONE TABLET BY MOUTH EVERY DAY NEEDED 90 Tablet 1 01/14/20 24 Active Naltrexone HCl 50 MG Oral Tablet (Revia)Indicatio ns:Generalized anxiety disorder,Morbid obesity with BMI of 40.0-44.9, adult ([facility]) TAKE 1/2 TABLET BY MOUTH IN THE MORNING AND ONE-HALF TABLET AT BEDTIME 90 Tablet 02/07/20 24 Active Folic Acid 1 MG Oral TabletIndication s:Rheumatoid arthritis involving multiple sites with positive rheumatoid factor ([facility]) Take 1 Tablet by mouth in the morning. In the morning.. 90 Tablet 2 02/04/20 24 Active Atorvastatin Calcium 10 MG Oral Tablet (Lipitor) TAKE ONE TABLET BY MOUTH EVERY DAY 90 Tablet 3 02/27/20 24 Active Ozempic (0.25 or 0.5 MG/DOSE) 2 MG/3ML Solution Pen-injector (Semaglutide(0.2 5 or 0.5MG/DOS))Indic ations:DM type 2, goal HbA1c < 7% ([facility]) Inject 0.25mg under the skin once weekly for 4 weeks then increase to 0.5mg under the skin once weekly thereafter 9 mL 1 11/22/20 24 Active Diclofenac Sodium 50 MG Oral Tablet Delayed Release (Voltaren)Indica tions:Generalize d osteoarthritis,R heumatoid arthritis involving multiple sites with positive rheumatoid factor (HCC) Take 1 Tablet by mouth 3 times a day as needed for Pain, Mild. 90 Tablet 2 03/11/20 24 Active Diclofenac Sodium 50 MG Oral Tablet Delayed Release (Voltaren)Indica tions:Generalize d osteoarthritis,R heumatoid arthritis involving multiple sites with positive rheumatoid factor (HCC) TAKE ONE TABLET BY MOUTH THREE TIMES DAILY NEEDED FOR PAIN, TAKE WITH FOOD 90 Tablet 01/24/20 24 024 Discontin ued(Refil l) documented as of this encounter (statuses as of 03/11/2024) Active Problems Problem Noted Date Diagnosed Date [...] as of this encounter (statuses as of 03/11/2024) Resolved Problems Problem Noted Date Diagnosed Date [...] as of this encounter (statuses as of 03/11/2024) Immunizations Name Administration Dates Next Due COVID-19 mRNA, LNP-s, No Pre serve, 2-Dose Series (Moderna) 02/21/2021,08/12/2020,07/08/2020 COVID-19, LNP-s, No Preserve , Ld-sucrose, Ages 12+ (Pfizer) 10/10/2021 Covid-19, Mrna, Lnp-s, Pf, B ivalent, 30 Mcg, IM, 12 yrs and above (Pfizer) 01/30/2022 PPD 08/24/2011 Pneumococcal Conjugate Vacc, 13 Valent (Prevnar) 02/26/2019 Pneumococcal Conjugate Vacci ne, 20-valent ([id number]) 02/04/2024 Pneumococcal Polysaccharide PPV23 (Pneumovax) 04/24/2013,03/08/2008 Seasonal [...] encounter Miscellaneous Notes * Telephone Encounter - Dave Blackburn DO - 03/11/2024 12:08 PM ESTSigned Prescriptions: Disp Refills Diclofenac Sodium 50 MG Oral Tablet Delaye*90 Tab*2 Sig: Take 1 Tablet by mouth 3 times a day as needed for Pain, Mild.Authorizing Provider: DAVE BLACKBURN------- * Telephone Encounter - Jessenia Butler CMA - 03/11/2024 9:17 AM ESTPending Prescriptions: Disp Refills Diclofenac Sodium 50 MG Oral Tablet Delaye*90 Tab*0 Sig: Take 1 Tablet by mouth 3 times a day as needed for Pain, Mild. * Telephone Encounter - Aissatou Roper OSA - 03/11/2024 9:07 AM EST Did you pend patient's preferred pharmacy and medication before forwarding?yes Pharmacy: [facility], [address] [place] Pending Prescriptions: Disp Refills Diclofenac Sodium 50 MG Oral Tablet Delay*90 Tab*0 Last Visit: 02/04/2024 (in office), Visit date not found (telemedicine) Next Visit: 09/29/2024 If no future appointments scheduled, and last appointment is greater than a year ago, please schedule patient for a follow-up appointment Last date the medication was ordered: 01.24.24 Is this request for a controlled substance?No [...] 04/21/2024 12:30 PM EST Imaging Radiology [address] [place] [address] 06/10/2024 10:40 AM EST Nutrition Services Nutrition & Weight Management, [facility] 132 [facility] [place] [address] Layla Ramesh RDN 132 [facility] [place] [address] 08/07/2024 10:20 AM EDT Office Visit Rheumatology [address] [place] [phone] Kevin Sánchez MD [facility] [address] 09/29/2024 8:50 AM EDT Office Visit Family Medicine [address] [place] [phone] [address] [place] [address] Scheduled Procedures Name Priority Associated Diagnoses Date/Ti [...] Additional history exists Lipid Panel 02/03/2029 02/04/2024, 0 05/2022, 06/06/2018, Additional history exists RETIRED - [...] as of this encounter Visit Diagnoses Diagnosis Generalized osteoarthritis Generalized osteoarthrosis, unspecified site Rheumatoid arthritis involving multiple sites with positive rheumatoid factor (HCC) documented in this encounter Care Teams Telegraphic Typewriter Repairer Relationship Specialty Start Date End Date Dave Blackburn DO [address] [place] [address] [place] [phone] PCP - General Internal Medicine 07/02/23 documented as of this encounter
--- OUTSIDE RECORDS SUMMARY | 2024-05-27 05:48 | External Medical Summary | Summary of Care ---
Author Name Unknown Organization [facility] Address [address] [facility] [place] [address] Phone [phone] Care Team Providers Care Ice Cream Shop Associate Name Role Phone Dave Blackburn DO Primary Care Provider + [phone] Reason for Visit * Reason Comments eRx-Medication Refill Encounter Details Date Type Department Care Team (Late st Contact Info) Description 02/26/2024 Refill Family Medicine [address] [place] [phone] Dave Blackburn DO [address] [place] [address] [place] [address] Allergies No known active allergiesdocumented as of this encounter (statuses as of 02/27/2024) Medications GNP VITAMIN B-12 1000 MCG PO TBCR Take 1 Tablet by mouth daily. 015 Active Cholecalciferol (VITAMIN D3) 2000 UNITS Capsule Take 1 Cap by mouth daily. 30 Cap 5 015 Active Cetirizine HCl 10 MG Oral Tablet (ZyrTEC) Take 1 Tablet by mouth in the morning. Active buPROPion HCl ER (SR) 150 MG Oral Tablet Extended Release 12 Hour (Wellbutrin SR)Indications:G eneralized anxiety disorder,Morbid obesity with BMI of 40.0-44.9, adult (HCC) Take 1 Tablet by mouth in the morning and 1 Tablet before bedtime. 180 Tablet 1 024 Active Omeprazole 20 MG Oral Capsule Delayed Release (PriLOSEC)Indica tions:Heartburn TAKE ONE CAPSULE BY MOUTH EVERY DAY ONE hour BEFORE first meal of THE DAY 90 Capsule 1 024 Active Irbesartan 150 MG Oral Tablet (Avapro)Indicati ons:Primary hypertension TAKE ONE TABLET BY MOUTH BEFORE bedtime 90 Tablet 3 024 Active Trulicity 0.75 MG/0.5ML Subcutaneous Solution Pen-injector (Dulaglutide)Ind ications:Type 2 diabetes mellitus without complications (HCC) Inject 0.75 mg subcutaneously once a week 2 mL 5 024 Active Enbrel SureClick 50 MG/ML Subcutaneous Solution Auto-injector (Etanercept)Charlotte cations:Arthriti s, rheumatoid (HCC) Inject 50 mg (1 pen) under the skin once a week. 4 mL 5 02/10/20 24 9:27 AM EDT 024 Active Furosemide 40 MG Oral Tablet (Lasix)Indicatio ns:Generalized edema TAKE ONE TABLET BY MOUTH EVERY DAY NEEDED 90 Tablet 1 024 Active Diclofenac Sodium 50 MG Oral Tablet Delayed Release (Voltaren)Indica tions:Generalize d osteoarthritis,R heumatoid arthritis involving multiple sites with positive rheumatoid factor ([facility]) TAKE ONE TABLET BY MOUTH THREE TIMES DAILY NEEDED FOR PAIN, TAKE WITH FOOD 90 Tablet 024 Active Naltrexone HCl 50 MG Oral Tablet (Revia)Indicatio ns:Generalized anxiety disorder,Morbid obesity with BMI of 40.0-44.9, adult ([facility]) TAKE 1/2 TABLET BY MOUTH IN THE MORNING AND ONE-HALF TABLET AT BEDTIME 90 Tablet 024 Active Folic Acid 1 MG Oral TabletIndication s:Rheumatoid arthritis involving multiple sites with positive rheumatoid factor (HCC) Take 1 Tablet by mouth in the morning. In the morning.. 90 Tablet 2 024 Active Atorvastatin Calcium 10 MG Oral Tablet (Lipitor) TAKE ONE TABLET BY MOUTH EVERY DAY 90 Tablet 3 024 Active Atorvastatin Calcium 10 MG Oral Tablet (Lipitor) TAKE ONE TABLET BY MOUTH EVERY DAY 90 Tablet 3 023 2023 Discontinued documented as of this encounter (statuses as of 02/27/2024) Active Problems Problem Noted Date Diagnosed Date [...] as of this encounter (statuses as of 02/27/2024) Resolved Problems Problem Noted Date Diagnosed Date [...] as of this encounter (statuses as of 02/27/2024) Immunizations Name Administration Dates Next Due COVID-19 mRNA, LNP-s, No Pre serve, 2-Dose Series (Moderna) 02/21/2021,08/12/2020,07/08/2020 COVID-19, LNP-s, No Preserve , Ld-sucrose, Ages 12+ (Pfizer) 10/10/2021 Covid-19, Mrna, Lnp-s, Pf, B ivalent, 30 Mcg, IM, 12 yrs and above (Pfizer) 01/30/2022 PPD 08/24/2011 Pneumococcal Conjugate Vacc, 13 Valent (Prevnar) 02/26/2019 Pneumococcal Conjugate Vacci ne, 20-valent ([id number]) 02/04/2024 Pneumococcal Polysaccharide PPV23 (Pneumovax) 04/24/2013,03/08/2008 Seasonal [...] encounter Miscellaneous Notes * Telephone Encounter - Mejia Mccoy RPh - 02/27/2024 3:24 PM ESTSigned Prescriptions: Disp Refills Atorvastatin Calcium 10 MG Oral Tablet (Li*90 Tab*3 Sig: TAKE ONE TABLET BY MOUTH EVERY DAYAuthorizing Provider: DAVE BLACKBURN User: MEJIA MCCOY-- documented in this encounter Plan of Treatment Upcoming Encounters Date Type Department Care Team (Late st Contact Info) Description 03/04/2024 12:20 PM EST Office Visit Nutrition & Weight Management, [facility] [address] [place] [address] Amberly Barrera PA-C [address] [place] [address] 04/21/2024 12:30 PM EST Imaging Radiology [address] [place] [address] 08/07/2024 10:20 AM EDT Office Visit Rheumatology [address] [place] [phone] Kevin Sánchez MD [facility] [place] [address] 09/29/2024 8:50 AM EDT Office Visit Family Medicine [address] [place] [phone] [place] [address] Scheduled Procedures Name Priority Associated Diagnoses Date/Ti [...] filedocumented as of this encounter Care Teams Ice Cream Shop Associate Relationship Specialty Start Date End Date Dave Blackburn DO [address] [place] [address] [place] [address] PCP - General Internal Medicine 07/02/23 documented as of this encounter
--- OUTSIDE RECORDS SUMMARY | 2024-05-27 05:48 | External Medical Summary | Summary of Care ---
Author Name Unknown Organization [facility] Address [address] [facility] [place] [address] Phone [phone] Care Team Providers Care Electrical Controls Engineer Name Role Phone Priest, Katjamontez Perez Primary Care Provider [phone] Reason for Visit * Reason Comments Nurse Documentation Nurse Injection teac namrata for Ozempic Encounter Details Date Type Department Care Team (Late st Contact Info) Description 03/20/2024 9:45 AM EST Nurse Only Nutrition & Weight Management, [facility] 132 [facility] [place] [address] [facility], Nutrition [facility] 132 [facility] [address] Nurse Documentation (Nurse Injection teach... Allergies No known active allergiesdocumented as of this encounter (statuses as of 03/23/2024) Medications GNP VITAMIN B-12 1000 MCG PO [...] (Dulaglutide)Charlotte cations:Type 2 diabetes mellitus without complications ([facility]) Inject 0.75 mg subcutaneously once a week 2 mL 5 12/13/19 24 Active Enbrel SureClick 50 MG/ML Subcutaneous Solution Auto-injector (Etanercept)Indic ations:Arthritis, rheumatoid ([facility]) Inject 50 mg (1 pen) under [...] tions:DM type 2, goal HbA1c < 7% ([facility]) Inject 0.25mg under the skin [...] as of this encounter (statuses as of 03/23/2024) Active Problems Problem Noted Date Diagnosed Date [...] as of this encounter (statuses as of 03/23/2024) Resolved Problems Problem Noted Date Diagnosed Date [...] as of this encounter (statuses as of 03/23/2024) Immunizations Name Administration Dates Next Due COVID-19 mRNA, LNP-s, No Pre serve, 2-Dose Series (Moderna) 02/21/2021,08/12/2020,07/08/2020 COVID-19, LNP-s, No Preserve , Ld-sucrose, Ages 12+ (Pfizer) 10/10/2021 Covid-19, Mrna, Lnp-s, Pf, B ivalent, 30 Mcg, IM, 12 yrs and above (Pfizer) 01/30/2022 PPD 08/24/2011 Pneumococcal Conjugate Vacc, 13 Valent (Prevnar) 02/26/2019 Pneumococcal Conjugate Vacci ne, 20-valent ([id number]) 02/04/2024 Pneumococcal Polysaccharide PPV23 (Pneumovax) 04/24/2013,03/08/2008 Seasonal [...] Sign Reading Time Taken Comments Blood Pressure 138/74 03/20/2024 10:20 AM EST Pulse 84 03/20/2024 10:20 AM EST Temperature 36.7 C (98.1 F) 03/20/2024 10:[address] Respiratory Rate - - Oxygen Saturation 97% 03/20/2024 10:20 AM EST Inhaled Oxygen Concentration - - Weight 115.9 kg (255 lb 8 oz) 03/20/2024 10:20 A M EST Height 159.4 cm (5' 2.75") 03/20/2024 10:[address] Body Mass Index 45.62 03/20/2024 10:20 AM EST documented in this encounter Progress Notes * Sean Carlson, BINGO ATTENDANT - 03/20/2024 9:42 AM EST Pt presents for education regarding the use of Ozempic for weight loss assistance. Pt viewed video Your routine with Ozempic Pt instructed on the following: Check that the Ozempic Medication in your pen is clear and colorless. Also ensure that the expiration is within the date of injection. Take new needle out of the pack and tear off the paper tab. (Do not attach until you are ready to give your injection) Push the needle straight into the pen and turn it until it is tight Pull the outer needle cap, do not throw it away. Pull off inner needle cap and throw away. (a drop may appear at the tip- this is normal) Turn the dose selector until the dose counter shoes the flow check symbol( ..-) Hold the pen with the needle pointing up. Press and hold the dose button until the dose counter shows 0. The 0 must line up with the dose pointer and a drop should appear. Always make sure a drop appears at the needle tip before you use a new pen for the first time. Thismakes sure that the Ozempic flows. If it does not appear, you will not inject any Ozempic even though the dose counter may move. This may mean that there is a blocked or damaged needle. Turn the dose selector until the dose counter shows your dose (0.25 or 0.5) To see how much Ozempic is left in your pen, use the dose counter: Turn the dose selector until thedose counter stops. If it shows 0.5, there is not enough left for a full dose of 0.5, if it stop's at 0.25 then 0.25 is left in your pen. If it stops before, then there is not enough for a full dose of 0.25 Choose your injection site: upper arm, outer thighs, lower abdomen (subcutaneous) Wipe skin with an alcohol swab, let dry. Insert the needle into your skin (make sure you do not cover the dose counter with your fingers) Press and hold down the dose button until the counter shows 0 Keep in your skin until the dose counter has turned to 0 and count to 6 Remove the needle from your skin, wipe any blood with a cotton ball lightly If the 0 does not appear in the dose counter after continuously pressing the button, you may have a damaged needle. Change the needle, re-inject Carefully remove the needle from the pen and placed in a sharp's disposal container. If you do not have a FDA-cleared sharps disposal container, you may use a household container that is: made of a heavy-duty plastic, can be closed with a tight-fitting, puncture-resistant lid, without sharps being able to come out, upright and stable during use, leak-resistant, properly labeled to warn of hazardous waste inside the container Put Pen cap back on after each use to protect Ozempic from light. Additional info: Never use a syringe to withdraw Ozempic from your pen Keep your needles out of reach of others Do not drop your pen or knock it against hard surfaces Store NEW pens in the refrigerator between 36-46 F, after first dose- can store at room temperaturebetween 59 and 86 degrees, otherwise can remain in the refrigerator. Should be disposed of 56 days after first use Keep it away from heat and out of light Pt self administered after demonstrating with the teaching pen documented in this encounter Nursing Notes * Sean Carlson LPN - 03/20/2024 9:42 AM EST Chief Complaint Patient presents with Nurse Documentation Nurse Injection teaching for Ozempic documented in this encounter Plan of Treatment Upcoming Encounters Date Type Department Care Team (Late st Contact Info) Description 04/21/2024 12:30 PM EST Imaging Radiology [address] [place] [address] 06/10/2024 10:40 AM EST Nutrition Services Nutrition & Weight Management, [address] [place] [address] Layla Ramesh, [place] [address] [place] [address] 08/07/2024 10:20 AM EDT Office Visit Rheumatology [address] [place] [phone] Kevin Sánchez MD [address] [facility] [place] [address] 09/29/2024 8:50 AM EDT Office Visit Family Medicine [address] [place] [phone] [address] [place] [address] Scheduled Procedures Name Priority Associated Diagnoses Date/Ti [...] filedocumented as of this encounter Care Teams Electrical Controls Engineer Relationship Specialty Start Date End Date Katja Priest DO [address] [place] [address] [place] [address] PCP - General Internal Medicine 07/02/23 documented as of this encounter
--- OUTSIDE RECORDS SUMMARY | 2024-05-27 05:48 | External Medical Summary | Summary of Care ---
Author Name Unknown Organization [facility] Address [address] [place] [address] Phone [phone] Care Team Providers Care Day Habilitation Specialist Name Role Phone Luis Manuel Priestanda Ana DALE Primary Care Provider Reason for Visit * Reason Onset Date Comments FYI 04/10/2024 Nicola Encounter Details Date Type Department Care Team (Late st Contact Info) Description 04/10/2024 Telephone Hematology/Oncology [facility] [place] [facility] [phone] Services, Scheduling [address] [place] [address] FYI (Nicola) Allergies No known active allergiesdocumented as of this encounter (statuses as of 04/10/2024) Medications GNP VITAMIN B-12 1000 MCG PO [...] as of this encounter (statuses as of 04/10/2024) Active Problems Problem Noted Date Diagnosed Date [...] as of this encounter (statuses as of 04/10/2024) Resolved Problems Problem Noted Date Diagnosed Date [...] as of this encounter (statuses as of 04/10/2024) Immunizations Name Administration Dates Next Due COVID-19 mRNA, LNP-s, No Pre serve, 2-Dose Series (Moderna) 02/21/2021,08/12/2020,07/08/2020 COVID-19, LNP-s, No Preserve , Ld-sucrose, Ages 12+ (Pfizer) 10/10/2021 Covid-19, Mrna, Lnp-s, Pf, B ivalent, 30 Mcg, IM, 12 yrs and above (Pfizer) 01/30/2022 PPD 08/24/2011 Pneumococcal Conjugate Vacc, 13 Valent (Prevnar) 02/26/2019 Pneumococcal Conjugate Vacci ne, 20-valent ([id number]) 02/04/2024 Pneumococcal Polysaccharide PPV23 (Pneumovax) 04/24/2013,03/08/2008 Seasonal [...] 04/21/2024 12:30 PM EST Imaging Radiology [address] [place] [address] 06/10/2024 10:40 AM EST Nutrition Services Nutrition & Weight Management, [facility] [address] [place] [address] Layla Ramesh RDN [address] [place] [address] 08/07/2024 10:20 AM EDT Office Visit Rheumatology [address] [place] [phone] Kevin Sánchez MD [facility] [place] [address] 09/29/2024 8:50 AM EDT Office Visit Family Medicine [address] [place] [phone] [address] [place] [address] Scheduled Procedures Name Priority Associated Diagnoses Date/Ti [...] filedocumented as of this encounter Care Teams Day Habilitation Specialist Relationship Specialty Start Date End Date Katja Priest DO [address] [place] [address] [place] [address] PCP - General Internal Medicine 07/02/23 documented as of this encounter
--- OUTSIDE RECORDS SUMMARY | 2024-05-27 05:48 | External Medical Summary | Summary of Care ---
Author Name Unknown Organization [facility] Address [address] [facility] [place] [address] Phone [phone] Care Team Providers Care Manager Electrical Name Role Phone PriestKatja gaming Primary Care Provider [phone] Encounter Details Date Type Department Care Team (Late st Contact Info) Description 02/20/2024 Population Health External Data Unspecified Department Allergies No known active allergiesdocumented as of this encounter (statuses as of 02/27/2024) Medications GNP VITAMIN B-12 1000 MCG PO TBCR Take 1 Tablet by mouth daily. 04/27/19 15 Active Cholecalciferol (VITAMIN D3) 2000 UNITS Capsule Take 1 Cap by mouth daily. 30 Cap 5 08/06/19 15 Active Cetirizine HCl 10 MG Oral Tablet (ZyrTEC) Take 1 Tablet by mouth in the morning. Active Atorvastatin Calcium 10 MG Oral Tablet (Lipitor) TAKE ONE TABLET BY MOUTH EVERY DAY 90 Tablet 3 03/12/20 23 Active buPROPion HCl ER (SR) 150 MG [...] TAKE WITH FOOD 90 Tablet 01/24/20 24 Active Naltrexone HCl 50 MG Oral [...] morning.. 90 Tablet 2 02/04/20 24 Active documented as of this encounter [...] (Prevnar) 02/26/2019 Pneumococcal Conjugate Vacci ne, 20-valent ([id number]) 02/04/2024 Pneumococcal Polysaccharide PPV23 (Pneumovax) 04/24/2013,03/08/2008 Seasonal [...] EST Office Visit Nutrition & Weight Management, [facility] [address] [place] [address] Amberly Barrera PA-C [address] [place] [address] 04/21/2024 12:30 PM EST Imaging Radiology [address] [place] [address] 08/07/2024 10:20 AM EDT Office Visit Rheumatology [address] [place] [phone] Kevin Sánchez MD [facility] [address] 09/29/2024 8:50 AM EDT Office Visit Family Medicine [address] [place] [phone] [place] [address] Scheduled Procedures Name Priority Associated Diagnoses Date/Ti [...] filedocumented as of this encounter Care Teams Manager Electrical Relationship Specialty Start Date End Date Katja Priest DO [address] [place] [address] [place] [phone] PCP - General Internal Medicine 07/02/23 documented as of this encounter
--- OUTSIDE RECORDS SUMMARY | 2024-05-27 05:49 | External Medical Summary ---
Author Name Unknown Address Unknown Organization K01:[facility] [place] [address] [facility] Subhash [place] [address] Laboratory Report Ordering Provider Test Date Status DARNELL THOMAS 02/04/2024 10:27:04 Final Observation Date Value Abnormality Reference (Units ) Status BUN 02/04/2024 10:27:04 13 6-20 (mg/dL) Final Creatinine 02/04/2024 10:27:04 1.0 0.5-1.0 (mg/dL) Final Glomerular filtration rate/1.73 sq M.predicted [Volume Rate/Area] in Serum, Plasma or Blood by Creatinine-based formula (CKD-EPI) 02/04/2024 10:27:04 65 >=60 (mL/min) Final eGFR is calculated based on the CKD-EPI 2020 equation. Sodium 02/04/2024 10:27:04 141 135-146 (m mol/L) Final Potassium 02/04/2024 10:27:04 4.1 3.5-5.1 (m mol/L) Final Cl 02/04/2024 10:27:04 100 98-107 (mm ol/L) Final CO2 02/04/2024 10:27:04 30 22-32 (mmo l/L) Final Anion gap 02/04/2024 10:27:04 11 7-15 (mmol /L) Final Glucose 02/04/2024 10:27:04 100 70-120 (mg /dL) Final Albumin 02/04/2024 10:27:04 4.7 3.8-5.0 (g /dL) Final AST (Aspartate aminotransferase) 02/04/2024 10:27:04 21 10-35 (U/L) Final Alk Phos 02/04/2024 10:27:04 94 35-130 (U/ L) Final Bilirubin, Total 02/04/2024 10:27:04 0.6 <=1 .2 (mg/dL) Final Calcium 02/04/2024 10:27:04 9.7 8.4-10.2 ( mg/dL) Final Protein 02/04/2024 10:27:04 7.6 6.0-8.3 (g /dL) Final ALT (Alanine aminotransferase) 02/04/2024 10:27:04 15 10-35 (U/L) Final Performing Location [facility] [place] [facility] [address]. [facility] [address]
--- OUTSIDE RECORDS SUMMARY | 2024-05-27 05:49 | External Medical Summary | Summary of Care ---
Author Name Unknown Organization [facility] Address [address] [facility] [place] [address] Phone [phone] Care Team Providers Care Technical Spec Name Role Phone Katja Priest DO Primary Care Provider [phone] Reason for Referral * Evaluate & Treat - Unlimited Visits (Within 10 days (routine)) - Authorized Specialty Diagnoses / Procedures Referred By Contact Referred To Contact GI NUTRITION/IM / Gastroenterology Diagnoses Morbid obesity with BMI of 40.0-44.9, adult ([facility]) Katja Priest DO [address] [place] [address] [place] [address] Referral ID Status Reason Start Date Expiration Date Visits Requested Visits Authorized [id number] Authorized Specialty Services Required 4 [phone] Question Answer Referral Priority Within 10 days (routine) Where should this appointment be scheduled? [facility] For what condition is the patient being seen? Obesity Is this referral for a GLP1 medication? No Comments THE PATIENT WILL NOT BE PRESCRIBED GLP-1 MEDICATIONS UNLESS: *Documentation of an unsuccessful trial of losing at least 5% of weight loss *Documentation the patient has had tried and failed two [2] non-GLP1 agonists (Phentermine and Wellbutrin/ Naltrexone) *Documentation of two [2] or more appointments discussing weight loss and lifestyle changes *Documentation of a blood pressure and weight within the EMR before initiation of the GLP-1 or non-GLP-1 medications REFERRING PROVIDER MUST ACKNOWLEDGE ALL OF THE CONDITIONS ABOVE ARE MET AND HAVE A BMI >35. IF THESE CONDITIONS ARE NOT MET THE PATIENT WILL NOT BE PRESCRIBED GLP- 1 PRESCRIPTIONS. Reason for Visit * Reason Comments Re-Check Pt c/o allergies. Encounter Details Date Type Department Care Team (Latest Contact Info) Description 02/04/2024 9:30 AM EDT Office Visit Family Medicine [address] [place] [phone] [place] [address] Primary hypertension*; Rheumatoid arthritis involving multiple sites with positive rheumatoid factor (HCC); Morbid obesity with BMI of 40.0-44.9, adult (HCC); Heartburn; Hyperlipidemia with target LDL less than 100; Seasonal allergies; Encounter for vitamin deficiency screening; Special screening for malignant neoplasms, colon; Need for vaccination against Streptococcus pneumoniae Allergies No known active allergiesdocumented as of this encounter (statuses as of 02/04/2024) Medications Medication Sig Dispensed Refills Start Date End Date Status GNP VITAMIN B-12 1000 MCG PO TBCR [...] bedtime. 180 Tablet 1 10/08/19 24 Active Naltrexone HCl 50 MG Oral Tablet (Revia)Indication s:Generalized anxiety disorder,Morbid obesity with BMI of 40.0-44.9, adult (HCC) TAKE 1/2 TABLET BY MOUTH IN THE MORNING AND ONE-HALF TABLET AT BEDTIME 90 Tablet 10/30/19 24 Active Omeprazole 20 MG Oral Capsule [...] skin once a week. 4 mL 5 01/08/20 24 Active Furosemide 40 MG Oral [...] WITH FOOD 90 Tablet 01/24/20 24 Active Folic Acid 1 MG Oral TabletIndications :Rheumatoid arthritis involving multiple sites with positive rheumatoid factor (HCC) Take 1 Tablet by mouth in the morning. In the morning.. 90 Tablet 2 02/04/20 24 Active predniSONE 5 MG Oral Tablet (Deltasone)Indica tions:Generalized osteoarthritis,Rh eumatoid arthritis involving multiple sites with positive rheumatoid factor (HCC) One daily as needed for flare ups of arthritis 30 Tab 5 10/27/19 21 024 Discontinued methylPREDNISolon e 4 MG Oral Tablet Therapy Pack (Medrol Dosepack) follow package directions 21 Tablet 4 10/08/19 24 024 Discontinued Folic Acid 1 MG Oral TabletIndications :Rheumatoid arthritis involving multiple sites with positive rheumatoid factor (HCC) TAKE ONE TABLET BY MOUTH IN THE MORNING 90 Tablet 10/30/19 24 024 Discontinued(Re fill) documented as of this encounter (statuses as of 02/04/2024) Active Problems Problem Noted Date Diagnosed Date Morbid obesity with BMI of 40.0-44.9, adult 02/13 Overview: 242 Primary hypertension 07/06/2021 Thrombocytopenia 07/08/2018 Overview: 137,000 Macrocytic anemia 08/13/2017 Encounter for long-term (current) use of medicat ions 05/11/2016 Rheumatoid arthritis involvi ng multiple sites with positive rheumatoid factor 04/25/2016 Generalized osteoarthritis 12/07/2009 Heartburn 06/25/2002 Full dentures 06/25/2002 documented as of this encounter (statuses as of 02/04/2024) Resolved Problems Problem Noted Date Diagnosed Date Resolved Date Age-related osteoporosis wit hout current pathological fracture 02/04/2024 02/04/2024 Morbid obesity with BMI of 40.0-44.9, adult 02/28/2022 03/01/2022 Overview: 242 DM type 2, goal HbA1c < 7% 04/17/2021 0 07/02/2023 Overview: glucose 218 Restless legs syndrome 10/26/202007/01 CKD (chronic kidney disease), stage II 08/03/2020 07/02/2023 Overview: EGFR 66 Urinary retention 06/29/2020 09/27/2021 Body [...] 12/29/2015 02/12/2017 BMI 40.0-44.9, adult 08/30/2015 019 Overview: 248 lbs Obesity, morbid (more than 1 00 lbs over ideal weight or BMI > 40) 06/07/2015 08/30/2015 Obesity, morbid (more than 1 00 lbs over ideal weight or BMI > 40) 06/01/2013 07/21/2013 Obesity, morbid (more than 1 00 lbs over ideal weight or BMI > 40) 07/12/2009 07/11/2011 Overview: Per Obesity Taxonomy ICD-10 update of inactive term Elevated C-reactive protein (CRP) 06/08/2008 03/30/2009 Overview: CRP 10.58 ADVANCE DIRECTIVE INFORMATION 02/10/2007 07/02/2023 Overview: No, Advance Directive brochure given to patient. Uterine leiomyoma 02/10/2007 08/19/2018 Obesity, BMI not known 02/14/200407/12 Overview: Per Obesity Taxonomy GENERALIZED ANXIETY DIS 06/25/200206/13 Arthritis, rheumatoid 06/25/20022016 Rosacea 06/25/2002 07/02/2023 Overview: started on tetracycline Gastroparesis 02/12/2017 BMI 40.0-44.9, adult 014 BMI 39.0-39.9,adult 08/30/19 16 Morbid obesity with BMI of 40.0-44.9, adult 02/25/2020 Overview: Per Obesity protocol documented as of this encounter (statuses as of 02/04/2024) Immunizations Name Administration Dates Next Due COVID-19 mRNA, LNP-s, No Pre serve, 2-Dose Series (Moderna) 02/21/2021,08/12/2020,07/08/2020 COVID-19, LNP-s, No Preserve , Ld-sucrose, Ages 12+ (Pfizer) 10/10/2021 Covid-19, Mrna, Lnp-s, Pf, B ivalent, 30 Mcg, IM, 12 yrs and above (Pfizer) 01/30/2022 PPD 08/24/2011 Pneumococcal Conjugate Vacc, 13 Valent (Prevnar) 02/26/2019 Pneumococcal Conjugate Vacci ne, 20-valent ([id number]) 02/04/2024 Pneumococcal Polysaccharide PPV23 (Pneumovax) 04/24/2013,03/08/2008 Seasonal [...] years and over) Not on file 10/01/2023 Sex and Gender Information Value Date Recorded Sex Assigned at Not on file Gender Identity Not on file Sexual Orientation Not on file Job Start Date Occupation Industry Not on file Not on file Not on file documented as of this encounter Last Filed Vital Signs Vital Sign Reading Time Taken Comments Blood Pressure 122/70 02/04/2024 9:38 AM EDT Pulse 70 02/04/2024 9:38 AM EDT Temperature 36.7 C (98 F) 02/04/2024 9:38 AM EDT Respiratory Rate - - Oxygen Saturation 97% 02/04/2024 9:38 AM EDT Inhaled Oxygen Concentration - - Weight 117 kg (258 lb) 02/04/2024 9:38 AM EDT Height - - Body Mass Index 45.7 04/26/2022 2:30 PM EST documented in this encounter Patient Instructions * Patient Instructions* Katja Priest DO - 02/04/2024 10:02 AM EDT I recommend that you get your RSV vaccine at the pharmacy prior to winter. You can try switching from certirizine (zyrtec) to another over the counter antihistamine such as claritin, ramandeep, or xyzal. If your nose is stuffy you can try over the counter flonase or nasocort. If your eyes are watery, you can use over the counter pataday. documented in this encounter Progress Notes * Katja Priest DO - 02/04/2024 9:41 AM EDT Subjective: Sugey J Urbanik is a 63 year old female. Chief Complaint Patient presents with Re-Check Pt c/o allergies. HPI: Sugey Schuler presents today for routine follow up. Concerns today include her weight. She has gained significant weight over the summer. She was following with GI nutrition but has been lost to follow up. She is on Trulicity - was apparently started this in 2021 when her A1c was 8.4. Is also on naltrexone and bupropion. RA is doing better. She remains on Enbrel - injects on . She has had swelling in her ankles. Is using her furosemide daily to every other day. Mood is doing okay. No heartburn/acid reflux on the medicine. She also tries to avoid spicy foods. She got her flu shot today. Declines COVID shot. Agreeable to Prevnar 20. Discussed RSV vaccine - she will think about this. She is agreeable to cologuard. PMH: Patient Active Problem List Diagnosis Heartburn Full dentures Generalized osteoarthritis Rheumatoid arthritis involving multiple sites with positive rheumatoid factor ([facility]) Encounter for long-term (current) use of medications Macrocytic anemia Thrombocytopenia ([facility]) Primary hypertension Morbid obesity with BMI of 40.0-44.9, adult ([facility]) Current Outpatient Medications Medication Sig Dispense Refill GNP VITAMIN B-12 1000 MCG PO TBCR Take 1 Tablet by mouth daily. Cholecalciferol (VITAMIN D3) 2000 UNITS Capsule Take 1 Cap by mouth daily. 30 Cap 5 Cetirizine HCl 10 MG Oral Tablet (ZyrTEC) Take 1 Tablet by mouth in the morning. Atorvastatin Calcium 10 MG Oral Tablet (Lipitor) TAKE ONE TABLET BY MOUTH EVERY DAY 90 Tablet 3 buPROPion HCl ER (SR) 150 MG Oral Tablet Extended Release 12 Hour (Wellbutrin SR) Take 1 Tablet by mouth in the morning and 1 Tablet before bedtime. 180 Tablet 1 Naltrexone HCl 50 MG Oral Tablet (Revia) TAKE 1/2 TABLET BY MOUTH IN THE MORNING AND ONE-HALF TABLET AT BEDTIME 90 Tablet 0 Omeprazole 20 MG Oral Capsule Delayed Release [...] PAIN, TAKE WITH FOOD 90 Tablet 0 Folic Acid 1 MG Oral Tablet Take 1 Tablet by mouth in the morning. In the morning.. 90 Tablet 2 No current facility-administered medications for this visit. Review of patient's allergies indicates: No Known Allergies Objective: BP 122/70 | Pulse 70 | Temp 36.7 C (98 F) | Wt 117 kg (258 lb) | LMP 10/13/2006 | SpO2 97% | BMI 45.70 kg/m | BSA 2.28 m General: alert, healthy, no distress, well nourished, well developed, and eye contact is intermittent, appears nervous Neck: supple, no adenopathy, thyroid normal size, non-tender, without nodularity Heart: regular rate & rhythm and no murmur Lungs: chest symmetric with normal AP diameter, no chest deformities noted, normal respiratory rateand rhythm, lungs clear to auscultation Abdomen: abdomen soft and non-tender Extremities: no joint deformities, effusion, or inflammation, no edema Neuro Exam: alert & oriented x 3 with fluent speech, no focal motor/sensory deficits, gait normal Skin: skin color, texture, turgor are normal, no rashes or significant lesions ASSESSMENT/PLAN: Primary hypertension (Primary) - well controlled on current regimen. Continue. Rheumatoid arthritis involving multiple sites with positive rheumatoid factor (HCC) - stable on Enbrel - Folic Acid 1 MG Oral Tablet; Take 1 Tablet by mouth in the morning. In the morning.. Morbid obesity with BMI of 40.0-44.9, adult (HCC) - continue trulicity, naltrexone, and bupropion. Refer back to GI nutrition for further guidance. - GI NUTRITION REFERRAL OP Heartburn - stable on omeprazole. Continue. Hyperlipidemia with target LDL less than 100 - continue atorvastatin - LIPID PANEL WITH DIRECT LDL IF TG IS HIGH; Future; Expected date: 02/04/2024 - COMPREHENSIVE METABOLIC PANEL; Future; Expected date: 02/04/2024 Seasonal allergies - written given on different medicines that can be used for allergies. Encounter for vitamin deficiency screening - on vitamin D and B12 supplement. - VITAMIN B12; Future; Expected date: 02/04/2024 - 25-HYDROXY VITAMIN D; Future; Expected date: 02/04/2024 Special screening for malignant neoplasms, colon - COLOGUARD Need for vaccination against Streptococcus pneumoniae - PNEUMOCOCCAL VACC, PCV20, IM ([id number]) Other orders - INFLUENZA VAC., TRIVALENT, HD, PF, 65 AND ABOVE, 0.5 ML IM (FLUZONE HD) Follow-up: Return in about 6 months (around 08/04/2024). | Check-out note: Labs today Katja Priest DO documented in this encounter Plan of Treatment Upcoming Encounters Date Type Department Care Team (Late st Contact Info) Description 02/13/2024 11:30 AM EDT Laboratory Laboratory [address] [place] [phone] [facility] [address] [place] [address] 02/19/2024 1:00 PM EST Office Visit Nutrition & Weight Management, [facility] [address] [place] [address] Kerri Preciado PA-C [address] [facility] [place] [address] 02/20/2024 11:30 AM EST Office Visit Hematology/Oncology [facility] [place] [phone] Ольга Abdi CRNP [address] [place] [address] 04/21/2024 12:30 PM EST Imaging Radiology [address] [place] [address] 08/07/2024 10:20 AM EDT Office Visit Rheumatology [address] [place] [phone] Kevin Sánchez MD [address] [place] [address] [place] [address] 09/29/2024 8:50 AM EDT Office Visit Family Medicine [address] [place] [phone] [address] [place] [address] Pending Results Name Type Priority Associated Diagnoses Date /Time LIPID PANEL WITH DIRECT LDL IF TG IS HIGH Lab Routine Hyperlipidemia with target LDL less than 100 02/04/2024 10:27 AM EDT VITAMIN B12 Lab Routine Encounter for vitamin deficiency screening 02/04/2024 10:27 AM EDT 25-HYDROXY VITAMIN D Lab Routine Encounter for vitamin deficiency screening 02/04/2024 10:27 AM EDT Scheduled Orders Name Type Priority Associated Diagnoses Orde r Schedule LIPID PANEL WITH DIRECT LDL IF TG IS HIGH Lab Routine Hyperlipidemia with target LDL less than 100 Expected: 02/04/2024, Expires: 02/03/2025 VITAMIN B12 Lab Routine Encounter for vitamin deficiency screening Expected: 02/04/2024 (Approximate), Expires: 02/03/2025 25-HYDROXY VITAMIN D Lab Routine Encounter for vitamin deficiency screening Expected: 02/04/2024 (Approximate), Expires: 02/03/2025 COLOGUARD Lab Unrestricted Lab Special screening for malignant neoplasms, colon Ordered: 02/04/2024 Scheduled Procedures Name Priority Associated Diagnoses Date/Ti me COLONOSCOPY FLEXIBLE PROXIMA L DIAGNOSTIC Recall Family history of colonic polyps Scheduled Referrals Name Type Priority Associated Diagnoses Orde r Schedule GI NUTRITION REFERRAL OP Referral Within 10 days (routine) Morbid obesity with BMI of 40.0-44.9, adult (HCC) Ordered: 02/04/2024 Health Maintenance Due Date Last Done Comments Cologuard 08/12/2003 Sigmoidoscopy 08/12/2003 Fecal Occult Blood Test 06/07/2018 06/07/19 18, 08/13/2014, 07/30/2013, Additional history exists Depression Screening 05/26/2020 05/26/2019 Colonoscopy 12/06/2023 12/05/2018, 12/05/2018 Colorectal Cancer Screening 12/06/2023 COVID-19 Vaccine ( season) 2023 01/30/2022, 10/10/2021, 02/21/2021, Additional history exists GFR 01/15/2024 01/14/2023, 05/17, 10/10/2021, Additional history exists Mammogram 04/16/2024 04/16/2023, 05/2023, 04/12/2022, Additional history exists Albumin/Creatinine Ratio 12/05/2025 12/05/2022, 01/13 Diabetes Screening 07/01/2026 07/02/2023, 1 , 12/05/2022, Additional history exists DTap/Tdap Vaccines (3 - Td or Tdap) 08/14/2027 08/13/2017, 05/06/2007 Lipid Panel 01/15/2028 01/14/2023, 05/17, 08/05/2014, Additional history exists DXA Scan 01/07/2029 01/08/2024, 12/15, 07/30/2018, Additional history exists RETIRED - COLONOSCOPY-EVERY 5 [...] as of this encounter Visit Diagnoses Diagnosis Primary hypertension- Primary Unspecified essential hypertension Rheumatoid arthritis involving multiple sites with positive rheumatoid factor (HCC) Morbid obesity with BMI of 40.0-44.9, adult (HCC) Morbid obesity Heartburn Hyperlipidemia with target LDL less than 100 Other and unspecified hyperlipidemia Seasonal allergies Allergic rhinitis, cause unspecified Encounter for vitamin deficiency screening Screening for other and unspecified endocrine, nutritional, metabolic, and immunity disorders Special screening for malignant neoplasms, colon Need for vaccination against Streptococcus pneumoniae Need for prophylactic vaccination against streptococcus pneumoniae (pneumococcus) documented in this encounter Care Teams Technical Spec Relationship Specialty Start Date End Date Katja Priest DO [address] [place] [address] [place] [address] PCP - General Internal Medicine 07/02/23 documented as of this encounter"
--- OUTSIDE RECORDS SUMMARY | 2024-05-27 05:49 | External Medical Summary | Summary of Care ---
Author Name Unknown Organization [facility] Address [address] [facility] [place] [address] Phone [phone] Care Team Providers Care Division Traffic Superintendent Name Role Phone Katja Priest DO Primary Care Provider + [phone] Reason for Visit * Reason Comments Outpatient Testing Encounter Details Date Type Department Care Team (Latest Contact Info) Description 02/04/2024 10:20 AM EDT Laboratory Laboratory [address] [place] [phone] [facility] [address] [place] [address] Thrombocytopenia (HCC); Macrocytic anemia; Hyperlipidemia with target LDL less than 100; Encounter for vitamin deficiency screening Allergies No known active allergiesdocumented as of this encounter (statuses as of 02/04/2024) Medications Medication Sig Dispensed Refills Start Date End Date Status GNP VITAMIN B-12 1000 MCG PO TBCR Take 1 Tablet by mouth daily. 04/27/2014 Active Cholecalciferol (VITAMIN D3) 2000 UNITS Capsule Take 1 Cap by mouth daily. 30 Cap 5 08/05/2014 Active Cetirizine HCl 10 MG Oral Tablet (ZyrTEC) Take 1 Tablet by mouth in the morning. Active Atorvastatin Calcium 10 MG Oral Tablet (Lipitor) TAKE ONE TABLET BY MOUTH EVERY DAY 90 Tablet 3 03/12/2023 Active buPROPion HCl ER (SR) 150 MG Oral Tablet Extended Release 12 Hour (Wellbutrin SR)Indications:Gene ralized anxiety disorder,Morbid obesity with BMI of 40.0-44.9, adult (HCC) Take 1 Tablet by mouth in the morning and 1 Tablet before bedtime. 180 Tablet 1 10/08/2023 Active Naltrexone HCl 50 MG Oral Tablet (Revia)Indications: Generalized anxiety disorder,Morbid obesity with BMI of 40.0-44.9, adult (HCC) TAKE 1/2 TABLET BY MOUTH IN THE MORNING AND ONE-HALF TABLET AT BEDTIME 90 Tablet 10/30/2023 Active Omeprazole 20 MG Oral Capsule Delayed Release (PriLOSEC)Indicatio ns:Heartburn TAKE ONE CAPSULE BY MOUTH EVERY DAY ONE hour BEFORE first meal of THE DAY 90 Capsule 1 11/12/2023 Active Irbesartan 150 MG Oral Tablet (Avapro)Indications :Primary hypertension TAKE ONE TABLET BY MOUTH BEFORE bedtime 90 Tablet 3 12/03/2023 Active Trulicity 0.75 MG/0.5ML Subcutaneous Solution Pen-injector (Dulaglutide)Indica tions:Type 2 diabetes mellitus without complications ([facility]) Inject 0.75 mg subcutaneously once a week 2 mL 5 12/13/2023 Active Enbrel SureClick 50 MG/ML Subcutaneous Solution Auto-injector (Etanercept)Indicat ions:Arthritis, rheumatoid ([facility]) Inject 50 mg (1 pen) under the skin once a week. 4 mL 5 01/08/2024 Active Furosemide 40 MG Oral Tablet (Lasix)Indications: Generalized edema TAKE ONE TABLET BY MOUTH EVERY DAY NEEDED 90 Tablet 1 01/14/2024 Active Diclofenac Sodium 50 MG Oral Tablet Delayed Release (Voltaren)Indicatio ns:Generalized osteoarthritis,Rheu matoid arthritis involving multiple sites with positive rheumatoid factor ([facility]) TAKE ONE TABLET BY MOUTH THREE TIMES DAILY NEEDED FOR PAIN, TAKE WITH FOOD 90 Tablet 01/24/2024 Active Folic Acid 1 MG Oral TabletIndications:R heumatoid arthritis involving multiple sites with positive rheumatoid factor ([facility]) Take 1 Tablet by mouth in the morning. In the morning.. 90 Tablet 2 02/04/2024 Active documented as of this encounter (statuses [...] (Prevnar) 02/26/2019 Pneumococcal Conjugate Vacci ne, 20-valent ([id number]) 02/04/2024 Pneumococcal Polysaccharide PPV23 (Pneumovax) 04/24/2013,03/08/2008 Seasonal [...] Description 02/13/2024 11:30 AM EDT Laboratory Laboratory [address] [place] [phone] [place] [address] 02/19/2024 1:00 PM EST Office Visit Nutrition & Weight Management, [facility] 132 [facility] [place] [address] Kerri Preciado PA-C 132 [facility] [place] [address] 02/20/2024 11:30 AM EST Office Visit Hematology/Oncology [facility] [place] [phone] Ольга Abdi CRNP [address] [place] [address] 04/21/2024 12:30 PM EST Imaging Radiology [address] [place] [address] 08/07/2024 10:20 AM EDT Office Visit Rheumatology [address] [place] [phone] Kevin Sánchez MD [address] [place] [address] [place] [address] 09/29/2024 8:50 AM EDT Office Visit Family Medicine [address] [place] [phone] [address] [place] [address] Pending Results Name Type Priority Associated Diagnoses Date /Time CBC WITH WBC DIFFERENTIAL Lab STAT Thrombocytopenia (HCC) Macrocytic anemia 02/04/2024 10:27 AM EDT COMPREHENSIVE METABOLIC PANEL Lab STAT Thrombocytopenia (HCC) Macrocytic anemia 02/04/2024 10:27 AM EDT LIPID PANEL WITH DIRECT LDL IF TG IS HIGH Lab Routine Hyperlipidemia with target LDL less than 100 02/04/2024 10:27 AM EDT VITAMIN B12 Lab Routine Encounter for vitamin deficiency screening 02/04/2024 10:27 AM EDT 25-HYDROXY VITAMIN D Lab Routine Encounter for vitamin deficiency screening 02/04/2024 10:27 AM EDT CBC Lab STAT Thrombocytopenia (HCC) Macrocytic anemia 02/04/2024 10:27 AM EDT DIFFERENTIAL, AUTOMATED Lab STAT Thrombocytopenia (HCC) Macrocytic anemia 02/04/2024 10:27 AM EDT Scheduled Procedures Name Priority Associated Diagnoses Date/Ti [...] as of this encounter Visit Diagnoses Diagnosis Thrombocytopenia (HCC) Thrombocytopenia, unspecified Macrocytic anemia Unspecified deficiency anemia Hyperlipidemia with target LDL less than 100 Other and unspecified hyperlipidemia Encounter for vitamin deficiency screening Screening for other and unspecified endocrine, nutritional, metabolic, and immunity disorders documented in this encounter Care Teams Division Traffic Superintendent Relationship Specialty Start Date End Date Katja Priest DO [address] [place] [address] [place] [address] PCP - General Internal Medicine 07/02/23 documented as of this encounter
--- OUTSIDE RECORDS SUMMARY | 2024-05-27 05:49 | External Medical Summary ---
Author Name Unknown Address Unknown Organization K01:[facility] [place] - [address] [facility] [place] [id number] Laboratory Report Ordering Provider Test Date Status DARNELL THOMAS 02/04/2024 10:27:04 Final Observation Date Value Abnormality Reference (Units ) Status SYNC LEUKOCYTES IN BLOOD BY AUTOMATED COUNT 02/04/2024 10:27:04 5.65 4.00-10.80 (K/uL) Final Segs 02/04/2024 10:27:04 52.7 40.0-75.0 (%) Final Lymphs % 02/04/2024 10:27:04 30.8 18.0-42.0 (%) Final Monos 02/04/2024 10:27:04 12.0 Above high normal 1.0-11.0 (%) Final Eosinophils 02/04/2024 10:27:04 0.4 0.0-6.0 (%) Final Basos 02/04/2024 10:27:04 0.4 0.0-2.0 (%) Final Immature Granulocyte, Percent 02/04/2024 10:27:04 3.7 Above high normal 0.0-2.0 (%) Final Absolute Segs 02/04/2024 10:27:04 2.98 1.80-7.70 (K/uL) Final Lymphs, absolute 02/04/2024 10:27:04 1.74 1.00-4.80 (K/ul) Final Monos, Abs 02/04/2024 10:27:04 0.68 0.00-1.10 (K/uL) Final Eos, Abs 02/04/2024 10:27:04 0.02 0.00-0.70 (K/uL) Final Basos, Abs 02/04/2024 10:27:04 0.02 0.00-0.20 (K/uL) Final Immature Granulocytes, Number 02/04/2024 10:27:04 0.21 Above high normal 0.00-0.20 (K/uL) Final Performing Location [facility] [place] - [address] [place] [id number]
--- OUTSIDE RECORDS SUMMARY | 2024-05-27 05:49 | External Medical Summary | Summary of Care ---
Author Name Unknown Organization [facility] Address [address] [facility] [place] [address] Phone [phone] Care Team Providers Care Senior Sales Operations Analyst Name Role Phone Katja Priest DO Primary Care Provider [phone] Encounter Details Date Type Department Care Team (Late st Contact Info) Description 02/18/2024 Telephone Nutrition & Weight Management, [facility] [address] [place] [address] Kerri Preciado PA-C [address] [place] [address] Allergies No known active allergiesdocumented as of this encounter (statuses as of 02/18/2024) Medications Medication Sig Dispensed Refills Start Date [...] before bedtime. 180 Tablet 1 10/08/2023 Active Omeprazole 20 MG Oral Capsule Delayed Release (PriLOSEC)Indicatio ns:Heartburn TAKE ONE CAPSULE BY MOUTH EVERY DAY ONE hour BEFORE first meal of THE DAY 90 Capsule 1 11/12/2023 Active Irbesartan 150 MG Oral Tablet (Avapro)Indications :Primary hypertension TAKE ONE TABLET BY MOUTH BEFORE bedtime 90 Tablet 3 12/03/2023 Active Trulicity 0.75 MG/0.5ML Subcutaneous Solution Pen-injector (Dulaglutide)Indica tions:Type 2 diabetes mellitus without complications (HCC) Inject 0.75 mg subcutaneously once a week 2 mL 5 12/13/2023 Active Enbrel SureClick 50 MG/ML Subcutaneous Solution Auto-injector (Etanercept)Indicat ions:Arthritis, rheumatoid (HCC) Inject 50 mg (1 pen) [...] TAKE WITH FOOD 90 Tablet 01/24/2024 Active Naltrexone HCl 50 MG Oral Tablet (Revia)Indications: Generalized anxiety disorder,Morbid obesity with BMI of 40.0-44.9, adult (HCC) TAKE 1/2 TABLET BY MOUTH IN THE MORNING AND ONE-HALF TABLET AT BEDTIME 90 Tablet 02/07/2024 Active Folic Acid 1 MG Oral TabletIndications:R heumatoid arthritis involving multiple sites with positive rheumatoid factor (HCC) Take 1 Tablet by mouth in the morning. In the morning.. 90 Tablet 2 02/04/2024 Active documented as of this encounter (statuses as of 02/18/2024) Active Problems Problem Noted Date Diagnosed Date Morbid obesity with BMI of 40.0-44.9, adult 02/13 Overview: 242 Primary hypertension 07/06/2021 Thrombocytopenia 07/08/2018 Overview: 137,000 Macrocytic anemia 08/13/2017 Encounter for long-term (current) use of medicat ions 05/11/2016 Rheumatoid arthritis involvi ng multiple sites with positive rheumatoid factor 04/25/2016 Generalized osteoarthritis 12/07/2009 Heartburn 06/25/2002 Full dentures 06/25/2002 documented as of this encounter (statuses as of 02/18/2024) Resolved Problems Problem Noted Date Diagnosed Date [...] as of this encounter (statuses as of 02/18/2024) Immunizations Name Administration Dates Next Due COVID-19 mRNA, LNP-s, No Pre serve, 2-Dose Series (Moderna) 02/21/2021,08/12/2020,07/08/2020 COVID-19, LNP-s, No Preserve , Ld-sucrose, Ages 12+ (Pfizer) 10/10/2021 Covid-19, Mrna, Lnp-s, Pf, B ivalent, 30 Mcg, IM, 12 yrs and above (Pfizer) 01/30/2022 PPD 08/24/2011 Pneumococcal Conjugate Vacc, 13 Valent (Prevnar) 02/26/2019 Pneumococcal Conjugate Vacci ne, 20-valent ([id number]) 02/04/2024 Pneumococcal Polysaccharide PPV23 (Pneumovax) 04/24/2013,03/08/2008 Seasonal [...] encounter Miscellaneous Notes * Telephone Encounter - Mavis Horta OSA - 02/18/2024 11:34 AM EST Left message letting pt know 02/18 appt was moved to 03/04. documented in this encounter Plan of Treatment Upcoming Encounters Date Type Department Care Team (Late st Contact Info) Description 03/04/2024 12:20 PM EST Office Visit Nutrition & Weight Management, [facility] [address] [place] [address] Amberly Barrera PA-C [place] [address] 04/21/2024 12:30 PM EST Imaging Radiology [address] [place] [address] 08/07/2024 10:20 AM EDT Office Visit Rheumatology [address] [place] [phone] Kevin Sánchez MD [facility] [place] [address] 09/29/2024 8:50 AM EDT Office Visit Family Medicine [address] [place] [phone] [place] [address] Scheduled Procedures Name Priority Associated Diagnoses Date/Ti [...] filedocumented as of this encounter Care Teams Senior Sales Operations Analyst Relationship Specialty Start Date End Date Katja Priest DO [address] [place] [address] [place] [address] PCP - General Internal Medicine 07/02/23 documented as of this encounter
--- OUTSIDE RECORDS SUMMARY | 2024-05-27 05:49 | External Medical Summary | Summary of Care ---
Author Name Unknown Organization [facility] Address [address] [facility] [place] [address] Phone [phone] Care Team Providers Care Aluminum Polisher Name Role Phone Katja Priest DO Primary Care Provider [phone] Encounter Details Date Type Department Care Team (Late st Contact Info) Description 01/08/2024 9:30 AM EDT Imaging Radiology, [address] [place] [address] Osteoporosis Allergies No known active allergiesdocumented as of this encounter (statuses as of 01/09/2024) Medications Medication Sig Dispensed Refills Start Date End Date Status GNP VITAMIN B-12 1000 MCG PO TBCR Take 1 Tablet by mouth daily. 04/27/2014 Active Cholecalciferol (VITAMIN D3) 2000 UNITS Capsule Take 1 Cap by mouth daily. 30 Cap 5 08/05/2014 Active Cetirizine HCl 10 MG Oral Tablet (ZyrTEC) Take 1 Tablet by mouth in the morning. Active predniSONE 5 MG Oral Tablet (Deltasone)Indicati ons:Generalized osteoarthritis,Rheu matoid arthritis involving multiple sites with positive rheumatoid factor (HCC) One daily as needed for flare ups of arthritis 30 Tab 5 10/26/2020 Active Additional Information Patient not taking.Reported on 11/07/2023 Atorvastatin Calcium 10 MG Oral Tablet (Lipitor) TAKE ONE TABLET BY MOUTH EVERY DAY 90 Tablet 3 03/12/2023 Active Diclofenac Sodium 50 MG Oral Tablet Delayed Release (Voltaren)Indicatio ns:Generalized osteoarthritis,Rheu matoid arthritis involving multiple sites with positive rheumatoid factor (HCC) TAKE ONE TABLET BY MOUTH THREE TIMES DAILY NEEDED FOR PAIN, TAKE WITH FOOD 90 Tablet 5 05/09/2023 Active Furosemide 40 MG Oral Tablet (Lasix)Indications: Generalized edema TAKE ONE TABLET BY MOUTH EVERY DAY NEEDED 90 Tablet 1 06/14/2023 Active buPROPion HCl ER (SR) 150 MG Oral Tablet Extended Release 12 Hour (Wellbutrin SR)Indications:Gene ralized anxiety disorder,Morbid obesity with BMI of 40.0-44.9, adult ([facility]) Take 1 Tablet by mouth in the morning and 1 Tablet before bedtime. 180 Tablet 1 10/08/2023 Active methylPREDNISolone 4 MG Oral Tablet Therapy Pack (Medrol Dosepack) follow package directions 21 Tablet 4 10/08/2023 Active Additional Information Patient not taking.Reported on 11/07/2023 Folic Acid 1 MG Oral TabletIndications:R heumatoid arthritis involving multiple sites with positive rheumatoid factor ([facility]) TAKE ONE TABLET BY MOUTH IN THE MORNING 90 Tablet 10/30/2023 Active Naltrexone HCl 50 MG Oral Tablet (Revia)Indications: Generalized anxiety disorder,Morbid obesity with BMI of 40.0-44.9, adult ([facility]) TAKE 1/2 TABLET BY MOUTH IN [...] (Dulaglutide)Indica tions:Type 2 diabetes mellitus without complications ([facility]) Inject 0.75 mg subcutaneously once a week 2 mL 5 12/13/2023 Active Enbrel SureClick 50 MG/ML Subcutaneous Solution Auto-injector (Etanercept)Indicat ions:Arthritis, rheumatoid ([facility]) Inject 50 mg (1 pen) under the skin once a week. 4 mL 5 01/08/2024 Active documented as of this encounter (statuses as of 01/09/2024) Active Problems Problem Noted Date Diagnosed Date Morbid obesity with BMI of 40.0-44.9, adult 02/13 Overview: 242 Primary hypertension 07/06/2021 Thrombocytopenia 07/08/2018 Overview: 137,000 Macrocytic anemia 08/13/2017 Encounter for long-term (current) use of medicat ions 05/11/2016 Rheumatoid arthritis involvi ng multiple sites with positive rheumatoid factor 04/25/2016 Generalized osteoarthritis 12/07/2009 Heartburn 06/25/2002 Full dentures 06/25/2002 documented as of this encounter (statuses as of 01/09/2024) Resolved Problems Problem Noted Date Diagnosed Date Resolved Date Morbid obesity with BMI of 40.0-44.9, [...] as of this encounter (statuses as of 01/09/2024) Immunizations Name Administration Dates Next Due COVID-19 mRNA, LNP-s, No Pre serve, 2-Dose Series (Moderna) 02/21/2021,08/12/2020,07/08/2020 COVID-19, LNP-s, No Preserve , Ld-sucrose, Ages 12+ (Pfizer) 10/10/2021 Covid-19, Mrna, Lnp-s, Pf, B ivalent, 30 Mcg, IM, 12 yrs and above (Pfizer) 01/30/2022 PPD 08/24/2011 Pneumococcal Conjugate Vacc, 13 Valent (Prevnar) 02/26/2019 Pneumococcal Polysaccharide PPV23 (Pneumovax) 04/24/2013,03/08/2008 Seasonal Influenza Virus Vac cine, Unspecified Formulation 02/20/2023,01/22/2022,02/17/2021,03/04,02/26/2019,06/11/2018,02/12/2017 ,03/06/2016,01/21/2015,01/28/2014,12/15,01/14/2012,07/11/2011, 9,03/08/2008 Seasonal Influenza, PF, 6 M & above, IM , (FluLaval or Fluzone) 02/20/2023,01/22/2022,02/17/2021,03/04,02/26/2019,06/11/2018,02/12/2017 Seasonal Influenza, Quadriva lent, No Preserve, IM 03/06/2016 Seasonal Influenza, Trivalen t, (IIV3), with Preserv, (Fluzone) 01/21/2015,01/28/2014,01/08/2013,01/13,07/11/2011,03/29/2011(Deferred: Patient Refused - does not want, has no insurance),12/29/2008,03/08/2008 TDAP (age 10 and older)(Boostrix) 08/13/2017 TDAP, [...] Care Team (Late st Contact Info) Description 02/04/2024 9:30 AM EDT Office Visit Family Medicine [address] [place] [phone] Katja Priest[address] [place] [address] 02/13/2024 11:30 AM EDT Laboratory Laboratory [address] [place] [phone] [facility] Lab [address] [place] [address] 02/20/2024 11:30 AM EST Office Visit Hematology/Oncology [facility] [place] [address] [facility] [place] [phone] Ольга Abdi CRNP [address] [place] [address] [place] [address] 04/21/2024 12:30 PM EST Imaging Radiology [address] [place] [address] 08/07/2024 10:20 AM EDT Office Visit Rheumatology [address] [place] [phone] Kevin Piedra MD [address] [facility] [place] [address] Scheduled Procedures Name Priority Associated Diagnoses Date/Ti me COLONOSCOPY FLEXIBLE PROXIMA L DIAGNOSTIC Recall Family history of colonic polyps Health Maintenance Due Date Last Done Comments Cologuard 08/12/2003 Sigmoidoscopy 08/12/2003 Fecal Occult Blood Test 06/07/2018 06/07/19 18, 08/13/2014, 07/30/2013, Additional history exists Depression Screening 05/26/2020 05/26/2019 Pneumococcal Vaccine: 65+ Years (4 of 4 - PPSV23 or PCV20) 08/12/2023 02/26/2019, 04/24/2013, 03/08/2008 Colonoscopy 12/06/2023 12/05/2018, 12/05/2018 Colorectal Cancer Screening 12/06/2023 COVID-19 Vaccine ( season) 2023 01/30/2022, 10/10/2021, 02/21/2021, Additional history exists Influenza Vaccine (FLU shot) (#1) 2023 02/20/2023, 02/20/2023, 01/22/2022, Additional history exists GFR 01/15/2024 01/14/2023, 05/17, 10/10/2021, Additional history exists Mammogram 04/16/2024 04/16/2023, 05/2023, 04/12/2022, Additional history exists Albumin/Creatinine Ratio 12/05/2025 12/05/2022, 01/13 Diabetes Screening 07/01/2026 07/02/2023, 1 , 12/05/2022, Additional history exists DTap/Tdap Vaccines (3 - Td or Tdap) 08/14/2027 08/13/2017, 05/06/2007 Lipid Panel 01/15/2028 01/14/2023, 05/17, 08/05/2014, Additional history exists DXA Scan 01/07/2029 01/08/2024, 07/14, 06/16/2012 RETIRED - COLONOSCOPY-EVERY 5 YRS AGES 18-100 Discontinued 12/05/2018, 12/05/2018 Zoster Vaccines Completed 08/13/2019, 05/28/2019 Cervical Cancer Screening Discontinued Pap Smear Discontinued 07/25/2020, 10/14, 10/27/2012, Additional history exists Diabetic Foot Exam Discontinued 12/05/2022, 01/30/2022 Diabetic Eye Exam Discontinued 10/31/2023, , 01/22/2022 HPV (Gardasil) Vaccine Aged Out No lo [...] Procedure Name Priority Date/Time Associated Diagnosis Comments DEXA SCAN/BONE MINERAL AXIAL Routine 01/08/2024 9:19 AM EDT Osteoporosis documented in this encounter Results * DEXA SCAN/BONE MINERAL AXIAL (01/08/2024 9:19 AM EDT) Anatomical Region Laterality Modality Dexa, Vertebra, Spine, Hip, Pelvis Nuclear Medicine Impressions 01/09/2024 7:02 AM EDT S: Fracture risk is based on current National Osteoporosis Foundation (www.nof.org) Clinicians Guide and [place] [employer] of Clinical Endocrinology (AACE) Guidelines (www.aace.com) and the application of current WHO FRAX tool (https://www.valorie.ac.uk/FRAX/) as well as the 2017 [place] [employer] Glucocorticoid Induced Osteoporosis (GIOP) Guidelines (rheumatology.org/Practice-Quality/Clinical-Support/Qhhxpygo-Oifryjoo-Dgtco lines) using Bone mineral density derived T-scores and clinical risk factors obtained from the patient questionnaire. 1. The fracture risk is LOW/MODERATE (does not meet NOF criteria for treatment) 2. The quality of the examination is GOOD. The values at the lumbar spine are falsely elevated, and therefore the values at the hip/femoral neck are a better reflection of fracture risk in this patient. 3. No previous study for comparison. DEXA machine was recently upgraded so comparison study can not be made SUGGESTIONS: Information concerning the evaluation and treatment of osteoporosis can be found at the National Osteoporosis Foundation website (www.nof.org) and [place] [employer] of Clinical Endocrinology (AACE-www.aace.com). Osteoporosis prevention and treatment begins by modifying risk factors (such as smoking cessation and avoiding alcohol excess) and by participating in weight-bearing activities and exercise. Issues related to fall prevention and home safety should be addressed. Current NOF guidelines suggest 1200 to 1500 mg of calcium from diet and or supplemental sources. It is generally felt best to get calcium from one s diet. Calcium carbonate and calcium citrate are common calcium supplement choices in most local pharmacies. If the patient is taking a proton pump inhibitor, then calcium citrate should be the preferred supplement, if that is necessary. NOF guidelines for vitamin D are 800 to 1000 units of vitamin D3 daily. However, this may best be guided by measurement of 25-OH vitamin-D level, aiming for a level between 30 to 50 units (ng/ml). Additional information can be found at the FRAX website (https://www.valorie.ac.uk/FRAX/), and the [place] [employer] website (https://www.rheumatology.org/Practice-Quality/Clinical-Support/Clinical-Pr actice-Guidelines). 1. No specific prescription therapy is needed at this point in time. 2. A repeat study should be considered in 4 years KEVIN PIEDRA M.D. SUDHA Certified Clinical Haz Tech Department of Rheumatology [facility] Narrative 01/09/2024 7:02 AM EDT Radiology, [facility] DXA Performed: 01/08/24 DXA Resulted: 01/09/2024 Sugey Schuler Reason for testing: estrogen deficient woman at clinical risk , Systemic disease and low bone mass Osteoporosis treatment (per questionnaire): A. Previous treatment: NONE B. Current treatment: NONE Major risk factors: History of chronic steroid use, RA Using a [employer] [facility] images of the lumbar spine, left hip were obtained using DXA.. The bone mineral density and T scores [standard, young, normal, female population] are as follows: RESULTS: Lumbar spine: INVALID Left femoral neck: 0.666 gms/cm2 T-score: -1.6 Using the NOF/WHO FRAX calculator, the 10 year absolute risk for any major osteoporotic fracture is 8 % and the risk for hip fracture is 0.8 %. Katja Priest DO RADIOLOGY (RAD GENER AL) documented in this encounter Visit Diagnoses Diagnosis Osteoporosis Osteoporosis, unspecified documented in this encounter Care Teams Aluminum Polisher Relationship Specialty Start Date End Date Katja Priest DO [address] [place] [address] [place] [address] PCP - General Internal Medicine 07/02/23 documented as of this encounter
--- OUTSIDE RECORDS SUMMARY | 2024-05-27 05:49 | External Medical Summary ---
Author Name Unknown Address Unknown Organization K01:[facility] [place] [address] [place] [id number] Laboratory Report Ordering Provider Test Date Status ALEXEY ACOSTA 02/04/2024 10:27:04 Final Deficient: <20 ng/mL
Ins ufficient: 20-29 ng/mL
Recommended/Optimum:30-50 ng/mL

Vitamin D intoxication is rare. If suspicious of Vitamin D toxicity, evaluation of serum Calcium and PTH is recommended. Observation Date Value Abnormality Reference (Units ) Status 25-OH Vitamin D total 02/04/2024 10:27:04 20 >19 (ng/mL) Final Performing Location [facility] - [address] [place] [id number]
--- OUTSIDE RECORDS SUMMARY | 2024-05-27 05:49 | External Medical Summary | Summary of Care ---
Author Name Unknown Organization [facility] Address [address] [facility] [place] [address] Phone [phone] Care Team Providers Care Aluminizer Name Role Phone Dave Blackburn DO Primary Care Provider + [phone] Reason for Visit * Reason Comments eRx-Medication Refill Encounter Details Date Type Department Care Team (Late st Contact Info) Description 01/23/2024 Refill Family Medicine [address] [place] [phone] Maribeth Purdy PA-C [address] [place] [address] [place] [address] Generalized osteoarthritis; Rheumatoid arthritis involving multiple sites with positive rheumatoid factor (HCC) Allergies No known active allergiesdocumented as of this encounter (statuses as of 01/24/2024) Medications Medication Sig Dispensed Refills Start Date End Date Status GNP VITAMIN B-12 1000 MCG PO TBCR Take 1 Tablet by mouth daily. 5 Active Cholecalciferol (VITAMIN D3) 2000 UNITS Capsule Take 1 Cap by mouth daily. 30 Cap 5 5 Active Cetirizine HCl 10 MG Oral Tablet (ZyrTEC) Take 1 Tablet by mouth in the morning. Active predniSONE 5 MG Oral Tablet (Deltasone)Indica tions:Generalized osteoarthritis,Rh eumatoid arthritis involving multiple sites with positive rheumatoid factor (HCC) One daily as needed for flare ups of arthritis 30 Tab 5 1 Active Additional Information Patient not taking.Reported on 11/07/2023 Atorvastatin Calcium 10 MG Oral Tablet (Lipitor) TAKE ONE TABLET BY MOUTH EVERY DAY 90 Tablet 3 3 Active buPROPion HCl ER (SR) 150 MG Oral Tablet Extended Release 12 Hour (Wellbutrin SR)Indications:Ge neralized anxiety disorder,Morbid obesity with BMI of 40.0-44.9, adult (HCC) Take 1 Tablet by mouth in the morning and 1 Tablet before bedtime. 180 Tablet 1 4 Active methylPREDNISolon e 4 MG Oral Tablet Therapy Pack (Medrol Dosepack) follow package directions 21 Tablet 4 4 Active Additional Information Patient not taking.Reported on 11/07/2023 Folic Acid 1 MG Oral TabletIndications :Rheumatoid arthritis involving multiple sites with positive rheumatoid factor ([facility]) TAKE ONE TABLET BY MOUTH IN THE MORNING 90 Tablet 4 Active Naltrexone HCl 50 MG Oral Tablet (Revia)Indication s:Generalized anxiety disorder,Morbid obesity with BMI of 40.0-44.9, adult ([facility]) TAKE 1/2 TABLET BY MOUTH IN THE MORNING AND ONE-HALF TABLET AT BEDTIME 90 Tablet 4 Active Omeprazole 20 MG Oral Capsule Delayed Release (PriLOSEC)Indicat ions:Heartburn TAKE ONE CAPSULE BY MOUTH EVERY DAY ONE hour BEFORE first meal of THE DAY 90 Capsule 1 4 Active Irbesartan 150 MG Oral Tablet (Avapro)Indicatio ns:Primary hypertension TAKE ONE TABLET BY MOUTH BEFORE bedtime 90 Tablet 3 4 Active Trulicity 0.75 MG/0.5ML Subcutaneous Solution Pen-injector (Dulaglutide)[place] cations:Type 2 diabetes mellitus without complications ([facility]) Inject 0.75 mg subcutaneously once a week 2 mL 5 4 Active Enbrel SureClick 50 MG/ML Subcutaneous Solution Auto-injector (Etanercept)Indic ations:Arthritis, rheumatoid ([facility]) Inject 50 mg (1 pen) under the skin once a week. 4 mL 5 4 Active Furosemide 40 MG Oral Tablet (Lasix)Indication s:Generalized edema TAKE ONE TABLET BY MOUTH EVERY DAY NEEDED 90 Tablet 1 4 Active Diclofenac Sodium 50 MG Oral Tablet Delayed Release (Voltaren)Indicat ions:Generalized osteoarthritis,Rh eumatoid arthritis involving multiple sites with positive rheumatoid factor ([facility]) TAKE ONE TABLET BY MOUTH THREE TIMES DAILY NEEDED FOR PAIN, TAKE WITH FOOD 90 Tablet Active Diclofenac Sodium 50 MG Oral Tablet Delayed Release (Voltaren)Indicat ions:Generalized osteoarthritis,Rh eumatoid arthritis involving multiple sites with positive rheumatoid factor (HCC) TAKE ONE TABLET BY MOUTH THREE TIMES DAILY NEEDED FOR PAIN, TAKE WITH FOOD 90 Tablet 5 4 024 Discontinued documented as of this encounter (statuses as of 01/24/2024) Active Problems Problem Noted Date Diagnosed Date Morbid obesity with BMI of 40.0-44.9, adult 02/13 Overview: 242 Primary hypertension 07/06/2021 Thrombocytopenia 07/08/2018 Overview: 137,000 Macrocytic anemia 08/13/2017 Encounter for long-term (current) use of medicat ions 05/11/2016 Rheumatoid arthritis involvi ng multiple sites with positive rheumatoid factor 04/25/2016 Generalized osteoarthritis 12/07/2009 Heartburn 06/25/2002 Full dentures 06/25/2002 documented as of this encounter (statuses as of 01/24/2024) Resolved Problems Problem Noted Date Diagnosed Date [...] as of this encounter (statuses as of 01/24/2024) Immunizations Name Administration Dates Next Due COVID-19 [...] alcohol) once a year at the most [facility]-2 Answer Date Recorded PHQ-2 Score 0 05/26/2019 [...] encounter Miscellaneous Notes * Telephone Encounter - Yobany Ortiz [facility] - 01/24/2024 1:11 PM EDTSigned Prescriptions: Disp Refills Diclofenac Sodium 50 MG Oral Tablet [place]aye*90 Tab*0 Sig: TAKE ONE TABLET BY MOUTH THREE TIMES DAILY NEEDED FOR PAIN, TAKE WITH FOODAuthorizing Provider: DAVE BLACKBURN User: OYBANY ORTIZ * Telephone Encounter - Yobany Ortiz [facility] - 01/24/2024 1:09 PM EDT RX authorized. Zero refills given until upcoming lab appt 02/13/24. Thank You, Yobany Ortiz [facility] Clinical Pharmacist [facility] [phone] 01/24/2024, 1:10 PM documented in this encounter Plan of Treatment Upcoming Encounters Date Type Department Care Team (Late st Contact Info) Description 02/04/2024 9:30 AM EDT Office Visit Family Medicine [address] [place] [phone] Dave [address] [place] [address] 02/13/2024 11:30 AM EDT Laboratory Laboratory [address] [place] [phone] [place] [address] 02/20/2024 11:30 AM EST [facility] [address] [facility] [place] [phone] Ольга Abdi CRNP [address] [place] [address] [place] [address] 04/21/2024 12:30 PM EST Imaging Radiology [address] [place] [address] 08/07/2024 10:20 AM EDT Office Visit Rheumatology [address] [place] [phone] Kevin Sánchez MD [address] [facility] [place] [address] Scheduled Procedures Name Priority Associated Diagnoses Date/Ti [...] (HCC) documented in this encounter Care Teams Aluminizer Relationship Specialty Start Date End Date Dave Blackburn DO [address] [place] [address] [place] [phone] PCP - General Internal Medicine 07/02/23 documented as of this encounter
--- OUTSIDE RECORDS SUMMARY | 2024-05-27 05:49 | External Medical Summary | Summary of Care ---
Author Name Unknown Organization [facility] Address [address] [place] [address] Phone [phone] Care Team Providers Care Caisson Worker Name Role Phone PriestKatja gaming Primary Care Provider [phone] Reason for Visit * Reason Comments Medication Refill Encounter Details Date Type Department Care Team (Late st Contact Info) Description 01/07/2024 Refill Rheumatology, [place] [address] [place], [place] [phone] Kevin Piedra MD [address] [place] [address] ARTHRITIS,RHEUMATOID Allergies No known active allergiesdocumented as of this encounter (statuses as of 01/08/2024) Medications Medication Sig Dispensed Refills Start Date End Date Status GNP VITAMIN B-12 1000 MCG PO TBCR Take 1 Tablet by mouth daily. 5 Active Cholecalciferol (VITAMIN D3) 2000 UNITS Capsule Take 1 Cap by mouth daily. 30 Cap 5 5 Active Cetirizine HCl 10 MG Oral Tablet (ZyrTEC) Take 1 Tablet by mouth in the morning. Active predniSONE 5 MG Oral Tablet (Deltasone)Indicat ions:Generalized osteoarthritis,Rhe umatoid arthritis involving multiple sites with positive rheumatoid factor (HCC) One daily as needed for flare ups of arthritis 30 Tab 5 1 Active Additional Information Patient not taking.Reported on 11/07/2023 Atorvastatin Calcium 10 MG Oral Tablet (Lipitor) TAKE ONE TABLET BY MOUTH EVERY DAY 90 Tablet 3 3 Active Diclofenac Sodium 50 MG Oral Tablet Delayed Release (Voltaren)Indicati ons:Generalized osteoarthritis,Rhe umatoid arthritis involving multiple sites with positive rheumatoid factor (HCC) TAKE ONE TABLET BY MOUTH THREE TIMES DAILY NEEDED FOR PAIN, TAKE WITH FOOD 90 Tablet 5 4 Active Furosemide 40 MG Oral Tablet (Lasix)Indications :Generalized edema TAKE ONE TABLET BY MOUTH EVERY DAY NEEDED 90 Tablet 1 4 Active buPROPion HCl ER (SR) 150 MG Oral Tablet Extended Release 12 Hour (Wellbutrin SR)Indications:Gen eralized anxiety disorder,Morbid obesity with BMI of 40.0-44.9, adult (HCC) Take 1 Tablet by mouth in the morning and 1 Tablet before bedtime. 180 Tablet 1 4 Active methylPREDNISolone 4 MG Oral Tablet Therapy Pack (Medrol Dosepack) follow package directions 21 Tablet 4 4 Active Additional Information Patient not taking.Reported on 11/07/2023 Folic Acid 1 MG Oral TabletIndications: Rheumatoid arthritis involving multiple sites with positive rheumatoid factor (HCC) TAKE ONE TABLET BY MOUTH IN THE MORNING 90 Tablet 4 Active Naltrexone HCl 50 MG Oral Tablet (Revia)Indications :Generalized anxiety disorder,Morbid obesity with BMI of 40.0-44.9, adult (HCC) TAKE 1/2 TABLET BY MOUTH IN THE MORNING AND ONE-HALF TABLET AT BEDTIME 90 Tablet 4 Active Omeprazole 20 MG Oral Capsule Delayed Release (PriLOSEC)Indicati ons:Heartburn TAKE ONE CAPSULE BY MOUTH EVERY DAY ONE hour BEFORE first meal of THE DAY 90 Capsule 1 4 Active Irbesartan 150 MG Oral Tablet (Avapro)Indication s:Primary hypertension TAKE ONE TABLET BY MOUTH BEFORE bedtime 90 Tablet 3 4 Active Trulicity 0.75 MG/0.5ML Subcutaneous Solution Pen-injector (Dulaglutide)Indic ations:Type 2 diabetes mellitus without complications (HCC) Inject 0.75 mg subcutaneously once a week 2 mL 5 4 Active Enbrel SureClick 50 MG/ML Subcutaneous Solution Auto-injector (Etanercept)Indica tions:Arthritis, rheumatoid (HCC) Inject 50 mg under the skin once a week. 4 mL 5 4 Active Etanercept 50 MG/ML Subcutaneous Solution Auto-injector (Enbrel Sureclick)Indicati ons:Arthritis, rheumatoid (HCC) Inject 50 mg under the skin once a week. 4 mL 11 3 01/07/20 24 Discontinu ed(Refill) documented as of this encounter (statuses as of 01/08/2024) Active Problems Problem Noted Date Diagnosed Date Morbid obesity with BMI of 40.0-44.9, adult 02/13 Overview: 242 Primary hypertension 07/06/2021 Thrombocytopenia 07/08/2018 Overview: 137,000 Macrocytic anemia 08/13/2017 Encounter for long-term (current) use of medicat ions 05/11/2016 Rheumatoid arthritis involvi ng multiple sites with positive rheumatoid factor 04/25/2016 Generalized osteoarthritis 12/07/2009 Heartburn 06/25/2002 Full dentures 06/25/2002 documented as of this encounter (statuses as of 01/08/2024) Resolved Problems Problem Noted Date Diagnosed Date [...] as of this encounter (statuses as of 01/08/2024) Immunizations Name Administration Dates Next Due COVID-19 [...] encounter Miscellaneous Notes * Telephone Encounter - Cuca Cummings RP - 01/08/2024 12:16 PM EDTSigned Prescriptions: Disp Refills Enbrel SureClick 50 MG/ML Subcutaneous Patricia*4 mL 5 Sig: Inject 50 mg under the skin once a week. Authorizing Provider: KEVIN PIEDRA Ordering User: CUCA CUMMINGS * Telephone Encounter - Cuca Cummings RP - 01/08/2024 12:09 PM EDT Rheumatology: Refill Request(s) Per review of the refill parameters, Medication was refilled . Pt will be due for yearly CMP soon. Labs already ordered and lab appt is scheduled for 02/13/24. Cuca Cummings RPh [facility] Clinical Pharmacist Rheumatology Department 01/08/2024,12:12 PM documented in this encounter Plan of Treatment Upcoming Encounters Date Type Department Care Team (Late st Contact Info) Description 02/04/2024 9:30 AM EDT Office Visit Family Medicine [address] [place] [phone] Katja Priest[address] [place] [address] 02/13/2024 11:30 AM EDT Laboratory Laboratory [address] [place] [phone] [place] [address] 02/20/2024 11:30 AM EST Office Visit Hematology/Oncology [facility] [place] [address] [facility] [place] [phone] Ольга Abdi [facility]NP [facility] [place] [address] 04/21/2024 12:30 PM EST Imaging Radiology [address] [place] [address] 08/07/2024 10:20 AM EDT Office Visit Rheumatology [address] [place] [phone] Kevin Piedra MD [address] [facility] [place] [address] Scheduled Procedures Name Priority Associated Diagnoses Date/Ti me COLONOSCOPY FLEXIBLE PROXIMA L DIAGNOSTIC Recall Family history of colonic polyps Health Maintenance Due Date Last Done Comments Cologuard 08/12/2003 Sigmoidoscopy 08/12/2003 Fecal Occult Blood Test 06/07/2018 06/07/19 18, 08/13/2014, 07/30/2013, Additional history exists Depression Screening 05/26/2020 05/26/2019 DXA Scan 07/31/2023 07/30/2018, 06/16/2012 Pneumococcal Vaccine: 65+ Years (4 of 4 [...] 01/15/2028 01/14/2023, 05/17, 08/05/2014, Additional history exists RETIRED - COLONOSCOPY-EVERY 5 [...] as of this encounter Visit Diagnoses Diagnosis ARTHRITIS,RHEUMATOID Rheumatoid arthritis documented in this encounter Care Teams Caisson Worker Relationship Specialty Start Date End Date Katja Priest DO [address] [place] [address] [place] [phone] PCP - General Internal Medicine 07/02/23 documented as of this encounter
--- OUTSIDE RECORDS SUMMARY | 2024-05-27 05:49 | External Medical Summary ---
Author Name Unknown Address Unknown Organization K01:LABORATORY [facility] [place] - [address] [place] [address] Laboratory Report Ordering Provider Test Date Status ALEXEY ACOSTA 02/04/2024 10:27:04 Final Observation Date Value Abnormality Reference (Units ) Status LDL, (direct) 02/04/2024 10:27:04 48 <=129 (mg/dL) Final LDL Cholesterol Reference Ra nges (mg/dL):
<70 Target level for high risk ASCVD patient
<100 Optimal for general population
100-129 Near optimal for general population
130-159 Borderline high
160-189 High
>=190 Very high Performing Location [facility]ATORY [facility] - [address] [place] [address]
--- OUTSIDE RECORDS SUMMARY | 2024-05-27 05:49 | External Medical Summary | Summary of Care ---
Author Name Unknown Organization [facility] Address [address] [facility] [place] [address] Phone [phone] Care Team Providers Care Cardiology Technician Name Role Phone Katja Priest DO Primary Care Provider [phone] Reason for Visit * Reason Onset Date Comments Advice 02/18/2024 Encounter Details Date Type Department Care Team (Late st Contact Info) Description 02/18/2024 Telephone Nutrition & Weight Management, [facility] [address] [place] [address] Kerri Preciado PA-C [address] [place] [address] Advice Allergies No known active allergiesdocumented as of [...] obesity with BMI of 40.0-44.9, adult ([facility]) Take 1 Tablet by mouth in the [...] (Dulaglutide)Indica tions:Type 2 diabetes mellitus without complications ([facility]) Inject 0.75 mg subcutaneously once a week 2 mL 5 12/13/2023 Active Enbrel SureClick 50 MG/ML Subcutaneous Solution Auto-injector (Etanercept)Indicat ions:Arthritis, rheumatoid ([facility]) Inject 50 mg (1 pen) under the skin once a week. 4 mL 5 01/08/2024 Active Furosemide 40 MG Oral Tablet (Lasix)Indications: Generalized edema TAKE ONE TABLET BY MOUTH EVERY DAY NEEDED 90 Tablet 1 01/14/2024 Active Diclofenac Sodium 50 MG Oral Tablet Delayed Release (Voltaren)Indicatio ns:Generalized osteoarthritis,Rheu matoid arthritis involving multiple sites with positive rheumatoid factor ([facility]) TAKE ONE TABLET BY MOUTH THREE TIMES [...] multiple sites with positive rheumatoid factor ([facility]) Take 1 Tablet by mouth in the [...] (Prevnar) 02/26/2019 Pneumococcal Conjugate Vacci ne, 20-valent ([id number]) 02/04/2024 Pneumococcal Polysaccharide PPV23 (Pneumovax) 04/24/2013,03/08/2008 Seasonal [...] encounter Miscellaneous Notes * Telephone Encounter - Bernarda Hernandez OSA - 02/18/2024 12:00 PM EST Patient has been notified of the message. Patient has no further questions. * Telephone Encounter - Mavis Horta OSA - 02/18/2024 11:34 AM EST Left message letting pt know 02/18 appt was moved to 03/04. documented in this encounter Plan of Treatment Upcoming Encounters Date Type Department Care Team (Late st Contact Info) Description 03/04/2024 12:20 PM EST Office Visit Nutrition & Weight Management, [facility] [address] [place] [address] Amberly Barrera PA-C [address] [place] [address] 04/21/2024 12:30 PM EST Imaging Radiology [address] [place] [address] 08/07/2024 10:20 AM EDT Office Visit Rheumatology [address] [place] [phone] Kevin Sánchez MD [address] [facility] [place] [address] 09/29/2024 8:50 AM EDT Office Visit Family Medicine [address] [place] [phone] [address] [place] [address] Scheduled Procedures Name Priority Associated Diagnoses Date/Ti [...] filedocumented as of this encounter Care Teams Cardiology Technician Relationship Specialty Start Date End Date Katja Priest DO [address] [place] [address] [place] [phone] PCP - General Internal Medicine 07/02/23 documented as of this encounter
--- OUTSIDE RECORDS SUMMARY | 2024-05-27 05:49 | External Medical Summary ---
Author Name Unknown Address Unknown Organization K01:[facility] [place] [address] [place] [address] Laboratory Report Ordering Provider Test Date Status ALEXEY ACOSTA 02/04/2024 10:27:04 Final Observation Date Value Abnormality Reference (Units ) Status Vitamin B12 02/04/2024 10:27:04 >2000 Above high normal 232-1245 (pg/mL) Final Performing Location [facility] - [address] [place] [id number]
--- OUTSIDE RECORDS SUMMARY | 2024-05-27 05:49 | External Medical Summary | Summary of Care ---
Author Name Unknown Organization [facility] Address [address] [facility] [place] [address] Phone [phone] Care Team Providers Care Team Manager Name Role Phone Dave Blackburn DO Primary Care Provider + [phone] Reason for Visit * Reason Onset Date Comments Medication Refill 01/14/2024 Encounter Details Date Type Department Care Team (Late st Contact Info) Description 01/14/2024 Refill Family Medicine [address] [place] [phone] Dave Blackburn DO [address] [place] [address] [place] [address] Generalized edema Allergies No known active allergiesdocumented as of this encounter (statuses as of 01/14/2024) Medications Medication Sig Dispensed Refills Start Date [...] WITH FOOD 90 Tablet 5 4 Active buPROPion HCl ER (SR) 150 [...] (Etanercept)Indica tions:Arthritis, rheumatoid (HCC) Inject 50 mg (1 pen) under the skin once a week. 4 mL 5 4 Active Furosemide 40 MG Oral Tablet (Lasix)Indications :Generalized edema TAKE ONE TABLET BY MOUTH EVERY DAY NEEDED 90 Tablet 1 Active Furosemide 40 MG Oral Tablet (Lasix)Indications :Generalized edema TAKE ONE TABLET BY MOUTH EVERY DAY NEEDED 90 Tablet 1 4 01/14/20 Discontinu ed(Refill) documented as of this encounter (statuses as of 01/14/2024) Active Problems Problem Noted Date Diagnosed Date Morbid obesity with BMI of 40.0-44.9, adult 02/13 Overview: 242 Primary hypertension 07/06/2021 Thrombocytopenia 07/08/2018 Overview: 137,000 Macrocytic anemia 08/13/2017 Encounter for long-term (current) use of medicat ions 05/11/2016 Rheumatoid arthritis involvi ng multiple sites with positive rheumatoid factor 04/25/2016 Generalized osteoarthritis 12/07/2009 Heartburn 06/25/2002 Full dentures 06/25/2002 documented as of this encounter (statuses as of 01/14/2024) Resolved Problems Problem Noted Date Diagnosed Date [...] as of this encounter (statuses as of 01/14/2024) Immunizations Name Administration Dates Next Due COVID-19 [...] Telephone Encounter - Dave Blackburn DO - 01/14/2024 10:21 AM EDTSigned Prescriptions: Disp Refills Furosemide 40 MG Oral Tablet (Lasix) 90 Tab*1 Sig: TAKE ONE TABLET BY MOUTH EVERY DAY NEEDED Authorizing Provider: DAVE BLACKBURN * Telephone Encounter - Mindi Logan RN - 01/14/2024 8:42 AM EDTPending Prescriptions: Disp Refills Furosemide 40 MG Oral Tablet (Lasix) 90 Tab*1 Sig: TAKE ONE TABLET BY MOUTH EVERY DAY NEEDED * Telephone Encounter - Jessy Blandon OSA - 01/14/2024 8:19 AM EDT Did you pend patient's preferred pharmacy and medication before forwarding?yes Pharmacy: [facility]-[address] [place] Pending Prescriptions: Disp Refills Furosemide 40 MG Oral Tablet (Lasix) 90 Tab*1 Sig: TAKE ONE TABLET BY MOUTH EVERY DAY NEEDED Last Visit: 07/02/2023 (in office), Visit date not found (telemedicine) Next Visit: 02/04/2024 If no future appointments scheduled, and last appointment is greater than a year ago, please schedule patient for a follow-up appointment Last date the medication was ordered: 06.14.23 Is this request for a controlled substance?No Urine Drug Screen:No results found. However, due to the size of the patient record, not all encounters were searched. Please check Results Review for a complete set of results. Patient Phone Numbers Labs: Lab Results Component Value Date/Time CREAT 1.0 01/14/2023 02:52 PM CREAT 1.0 09/18/2019 10:06 AM POTASSIUM 4.1 01/14/2023 02:52 PM POTASSIUM 4.1 09/18/2019 10:06 AM TSH 2.08 07/02/2023 01:53 PM TSH 2.52 08/28/2018 09:50 AM LDL 46 01/14/2023 02:52 PM LDL 77 06/06/2018 09:30 AM ALT 15 01/14/2023 02:52 PM ALT 17 09/18/2019 10:06 AM HGBA1C 5.4 07/02/2023 01:53 PM HGBA1C 5.6 06/06/2018 09:30 AM documented in this encounter Plan of Treatment Upcoming Encounters Date Type Department Care Team (Late st Contact Info) Description 02/04/2024 9:30 AM EDT Office Visit Family Medicine [address] [place] [address] [address] [place] [address] 02/13/2024 11:30 AM EDT Laboratory Laboratory [address] [place] [phone] [place] [address] 02/20/2024 11:30 AM EST Office Visit Hematology/Oncology [facility] [place] [phone] Ольга Abdi CRNP 400 [facility] [place] [address] 04/21/2024 12:30 PM EST Imaging Radiology [address] [place] [address] 08/07/2024 10:20 AM EDT Office Visit Rheumatology [address] [place] [phone] Kevin Sánchez MD [facility] [place] [address] Scheduled Procedures Name Priority Associated Diagnoses Date/Ti [...] of this encounter Visit Diagnoses Diagnosis Generalized edema Edema documented in this encounter Care Teams Team Manager Relationship Specialty Start Date End Date Dave Blackburn DO [address] [place] [address] [place] [address] PCP - General Internal Medicine 07/02/23 documented as of this encounter
--- OUTSIDE RECORDS SUMMARY | 2024-05-27 05:49 | External Medical Summary | Summary of Care ---
Author Name Unknown Organization [facility] Address [address] [facility] [place] [address] Phone [phone] Care Team Providers Care Permastone Applicator Name Role Phone Dave Blackburn DO Primary Care Provider [phone] Reason for Visit * Reason Comments eRx-Medication Refill Encounter Details Date Type Department Care Team (Late st Contact Info) Description 01/31/2024 Refill Nutrition & Weight Management, [facility] [address] [place] [address] Kerri Hogue PA-C [address] [place] [address] GENERALIZED ANXIETY DIS; Morbid obesity with BMI of 40.0-44.9, adult (HCC); Rheumatoid arthritis involving multiple sites with positive rheumatoid factor (HCC) Allergies No known active allergiesdocumented as of this encounter (statuses as of 02/07/2024) Medications Medication Sig Dispensed Refills Start Date [...] before bedtime. 180 Tablet 1 4 Active Omeprazole 20 MG Oral Capsule [...] (Dulaglutide)[place] cations:Type 2 diabetes mellitus without complications ([facility]) Inject 0.75 mg subcutaneously once a week 2 mL 5 4 Active Enbrel SureClick 50 MG/ML Subcutaneous Solution Auto-injector (Etanercept)Indic ations:Arthritis, rheumatoid ([facility]) Inject 50 mg (1 pen) under the skin once a week. 4 mL 5 4 Active Furosemide 40 MG Oral Tablet (Lasix)Indication s:Generalized edema TAKE ONE TABLET BY MOUTH EVERY DAY NEEDED 90 Tablet 1 4 Active Diclofenac Sodium 50 MG Oral Tablet Delayed Release (Voltaren)Indicat ions:Generalized osteoarthritis,Rh eumatoid arthritis involving multiple sites with positive rheumatoid factor ([facility]) TAKE ONE TABLET BY MOUTH THREE TIMES DAILY NEEDED FOR PAIN, TAKE WITH FOOD 90 Tablet 4 Active Naltrexone HCl 50 MG Oral Tablet (Revia)Indication s:Generalized anxiety disorder,Morbid obesity with BMI of 40.0-44.9, adult (HCC) TAKE 1/2 TABLET BY MOUTH IN THE MORNING AND ONE-HALF TABLET AT BEDTIME 90 Tablet 4 Active Naltrexone HCl 50 MG Oral Tablet (Revia)Indication s:Generalized anxiety disorder,Morbid obesity with BMI of 40.0-44.9, adult (HCC) TAKE 1/2 TABLET BY MOUTH IN THE MORNING AND ONE-HALF TABLET AT BEDTIME 90 Tablet 4 024 Discontinued documented as of this encounter (statuses as of 02/07/2024) Active Problems Problem Noted Date Diagnosed Date Morbid obesity with BMI of 40.0-44.9, adult 02/13 Overview: 242 Primary hypertension 07/06/2021 Thrombocytopenia 07/08/2018 Overview: 137,000 Macrocytic anemia 08/13/2017 Encounter for long-term (current) use of medicat ions 05/11/2016 Rheumatoid arthritis involvi ng multiple sites with positive rheumatoid factor 04/25/2016 Generalized osteoarthritis 12/07/2009 Heartburn 06/25/2002 Full dentures 06/25/2002 documented as of this encounter (statuses as of 02/07/2024) Resolved Problems Problem Noted Date Diagnosed Date [...] as of this encounter (statuses as of 02/07/2024) Immunizations Name Administration Dates Next Due COVID-19 [...] encounter Miscellaneous Notes * Telephone Encounter - Kerri Hogue PA-C - 02/07/2024 11:15 AM EDT Signed Prescriptions: Disp Refills Naltrexone HCl 50 MG Oral Tablet (Revia) 90 Tab*0 Sig: TAKE 1/2 TABLET BY MOUTH IN THE MORNING AND ONE-HALF TABLET AT BEDTIME Authorizing Provider: KERRI HOGUE Refused Prescriptions: Disp Refills Folic Acid 1 MG Oral Tablet [Pharmacy Med *90 Tab*0 Sig: TAKE ONE TABLET BY MOUTH IN THE MORNINGRefused By: DAVE BLACKBURN Reason for Refusal: Duplicate Request * Telephone Encounter - Sean Carlson LPN - 02/07/2024 7:45 AM EDT Pending Prescriptions: Disp Refills Naltrexone HCl 50 MG Oral Tablet [Pharmacy*90 Tab*0 Sig: TAKE 1/2 TABLET BY MOUTH IN THE MORNING AND ONE-HALF TABLET AT BEDTIME Refused Prescriptions: Disp Refills Folic Acid 1 MG Oral Tablet [Pharmacy Med *90 Tab*0 Sig: TAKE ONE TABLET BY MOUTH IN THE MORNING Refused By: DAVE BLACKBURN Reason for Refus al: Duplicate Request * Telephone Encounter - Sean Carlson LPN - 01/31/2024 12:06 PM EDT Did you pend patient's preferred pharmacy and medication before forwarding?yes Pharmacy: [facility], [address] [place] Pending Prescriptions: Disp Refills Naltrexone HCl 50 MG Oral Tablet (Revia) *90 Tab*0 Sig: TAKE 1/2 TABLET BY MOUTH IN THE MORNING AND ONE-HALF TABLET AT BEDTIME Folic Acid 1 MG Oral Tablet [Pharmacy Med*90 Tab*0 Sig: TAKE ONE TABLET BY MOUTH IN THE MORNING Last Visit: 01/30/2022 (in office), 01/31/2021 (telemedicine) Next Visit: Visit date not found 02/19/24 If no future appointments scheduled, and last appointment is greater than a year ago, please schedule patient for a follow-up appointment /Last date the medication was ordered: 10/30/23 Is this request for a controlled substance?No [...] Description 02/13/2024 11:30 AM EDT Laboratory Laboratory [address] [place] [phone] [facility] [address] [place] [address] 02/19/2024 1:00 PM EST Office Visit Nutrition & Weight Management, [facility] [place] [address] Kerri Hogue PA-C [address] [place] [address] 04/21/2024 12:30 PM EST Imaging Radiology [address] [place] [address] 08/07/2024 10:20 AM EDT Office Visit Rheumatology [address] [place] [address] Kevin Sánchez MD [address] [place], [place] [address] [address] 09/29/2024 8:50 AM EDT Office Visit Family Medicine [address] [place] [phone] [place] [address] Scheduled Procedures Name Priority Associated Diagnoses Date/Ti [...] BMI of 40.0-44.9, adult (HCC) Morbid obesity Rheumatoid arthritis involving multiple sites with positive rheumatoid factor (HCC) documented in this encounter Care Teams Permastone Applicator Relationship Specialty Start Date End Date Dave Blackburn DO [address] [place] [address] [place] [address] PCP - General Internal Medicine 07/02/23 documented as of this encounter
--- OUTSIDE RECORDS SUMMARY | 2024-05-27 05:49 | External Medical Summary | Summary of Care ---
Author Name Unknown Organization [facility] Address [address] [facility] [place] [address] Phone [phone] Care Team Providers Care Snack Bar Cashier Name Role Phone PriestKatja gaming Primary Care Provider [phone] Encounter Details Date Type Department Care Team (Late st Contact Info) Description 01/28/2024 Population Health External Data Unspecified Department Allergies No known active allergiesdocumented as of this encounter (statuses as of 01/29/2024) Medications Medication Sig Dispensed Refills Start Date [...] TAKE WITH FOOD 90 Tablet 01/24/2024 Active documented as of this encounter (statuses as of 01/29/2024) Active Problems Problem Noted Date Diagnosed Date Morbid obesity with BMI of 40.0-44.9, adult 02/13 Overview: 242 Primary hypertension 07/06/2021 Thrombocytopenia 07/08/2018 Overview: 137,000 Macrocytic anemia 08/13/2017 Encounter for long-term (current) use of medicat ions 05/11/2016 Rheumatoid arthritis involvi ng multiple sites with positive rheumatoid factor 04/25/2016 Generalized osteoarthritis 12/07/2009 Heartburn 06/25/2002 Full dentures 06/25/2002 documented as of this encounter (statuses as of 01/29/2024) Resolved Problems Problem Noted Date Diagnosed Date [...] as of this encounter (statuses as of 01/29/2024) Immunizations Name Administration Dates Next Due COVID-19 [...] AM EDT Office Visit Family Medicine [address] [place] [phone] Katja Priest[address] [place] [address] 02/13/2024 11:30 AM EDT Laboratory Laboratory [address] [place] [phone] [facility] [address] [place] [address] 02/20/2024 11:30 AM EST Office Visit Hematology/Oncology [facility] [place] [address] [facility] [place] [phone] Ольга Abdi CRNP [address] [place] [address] [place] [address] 04/21/2024 12:30 PM EST Imaging Radiology [address] [place] [address] 08/07/2024 10:20 AM EDT Office Visit Rheumatology [address] [place] [phone] Kevin Sánchez MD [address] [facility] [place] [address] Scheduled Procedures Name Priority Associated Diagnoses Date/Ti [...] filedocumented as of this encounter Care Teams Snack Bar Cashier Relationship Specialty Start Date End Date Katja Priest DO [address] [place] [address] [place] [address] PCP - General Internal Medicine 07/02/23 documented as of this encounter
--- OUTSIDE RECORDS SUMMARY | 2024-05-27 05:50 | External Medical Summary | Summary of Care ---
Author Name Unknown Organization [facility] Address [address] [facility] [place] [address] Phone [phone] Care Team Providers Care Beeswax Bleacher Name Role Phone Dave Blackburn DO Primary Care Provider + [phone] Reason for Visit * Reason Comments eRx-Medication Refill Encounter Details Date Type Department Care Team (Late st Contact Info) Description 12/12/2023 Refill Family Medicine [address] [phone] Dave Blackburn DO [address] [place] [address] [place] [address] Type 2 diabetes mellitus without complications (HCC) Allergies No known active allergiesdocumented as of this encounter (statuses as of 12/13/2023) Medications Medication Sig Dispensed Refills Start Date [...] Additional Information Patient not taking.Reported on 11/07/2023 Etanercept 50 MG/ML Subcutaneous Solution Auto-injector (Enbrel Sureclick)Indicat ions:Arthritis, rheumatoid (HCC) Inject 50 mg under the skin once a week. 4 mL 11 3 Active Atorvastatin Calcium 10 MG Oral Tablet [...] involving multiple sites with positive rheumatoid factor ([facility]) TAKE ONE TABLET BY MOUTH [...] a week 2 mL 5 4 Active Trulicity 0.75 MG/0.5ML Subcutaneous Solution Pen-injector (Dulaglutide) Inject 0.75 mg subcutaneously once a week 2 mL 5 4 024 Discontinued documented as of this encounter (statuses as of 12/13/2023) Active Problems Problem Noted Date Diagnosed Date Morbid obesity with BMI of 40.0-44.9, adult 02/13 Overview: 242 Primary hypertension 07/06/2021 Thrombocytopenia 07/08/2018 Overview: 137,000 Macrocytic anemia 08/13/2017 Encounter for long-term (current) use of medicat ions 05/11/2016 Rheumatoid arthritis involvi ng multiple sites with positive rheumatoid factor 04/25/2016 Generalized osteoarthritis 12/07/2009 Heartburn 06/25/2002 Full dentures 06/25/2002 documented as of this encounter (statuses as of 12/13/2023) Resolved Problems Problem Noted Date Diagnosed Date [...] as of this encounter (statuses as of 12/13/2023) Immunizations Name Administration Dates Next Due COVID-19 [...] encounter Miscellaneous Notes * Telephone Encounter - Ambrosio Barger RPh - 12/13/2023 11:40 AM EDTSigned Prescriptions: Disp Refills Trulicity 0.75 MG/0.5ML Subcutaneous Solut*2 mL 5 Sig: Inject 0.75 mg subcutaneously once a weekAuthorizing Provider: DAVE BLACKBURN User: AMBROSIO BARGER NN documented in this encounter Plan of Treatment Upcoming Encounters Date Type Department Care Team (Late st Contact Info) Description 01/08/2024 9:30 AM EDT Imaging Radiology, [address], [place] [address] 02/04/2024 9:30 AM EDT Office Visit Family [address] [phone] Dave Blackburn, [address] [place] [address] 02/13/2024 11:30 AM EDT Laboratory Laboratory [address] [place] [phone] [place], [address] [place] [address] 02/20/2024 11:30 AM EST Office Visit Hematology/Oncology [facility] [place] [address] [facility] [place] [phone] Ольга Abdi CRNP [address] [facility] [place] [address] 04/21/2024 12:30 PM EST Imaging Radiology [address] [place] [address] 08/07/2024 10:20 AM EDT Office Visit Rheumatology [address] [place] [phone] Kevin Sánchez MD [address] [place] [address] [place] [address] Scheduled Procedures Name Priority Associated Diagnoses Date/Ti me COLONOSCOPY FLEXIBLE PROXIMA L DIAGNOSTIC Recall Family history of colonic polyps Health Maintenance Due Date Last Done Comments Cologuard 08/12/2003 Sigmoidoscopy 08/12/2003 Fecal Occult Blood Test 06/07/2018 06/07/19 18, 08/13/2014, 07/30/2013, Additional history exists Depression Screening 05/26/2020 05/26/2019 COVID-19 Vaccine ( season) 2022 01/30/2022, 10/10/2021, 02/21/2021, Additional history exists DXA Scan 07/31/2023 07/30/2018, 06/16/2012 Pneumococcal Vaccine: 65+ Years (4 of 4 - PPSV23 or PCV20) 08/12/2023 02/26/2019, 04/24/2013, 03/08/2008 Colonoscopy 12/06/2023 12/05/2018, 12/05/2018 Colorectal Cancer Screening 12/06/2023 Influenza Vaccine (FLU shot) (#1) 2023 02/20/2023, [...] as of this encounter Visit Diagnoses Diagnosis Type 2 diabetes mellitus without complications (HCC) Type II or unspecified type diabetes mellitus without mention of complication, not stated as uncontrolled documented in this encounter Care Teams Beeswax Bleacher Relationship Specialty Start Date End Date Dave Blackburn DO [address] [place] [address] [place] [id number] PCP - General Internal Medicine 07/02/23 documented as of this encounter
--- OUTSIDE RECORDS SUMMARY | 2024-05-27 05:50 | External Medical Summary | Summary of Care ---
Author Name Unknown Organization [facility] Address [address] [facility] [place] [address] Phone [phone] Care Team Providers Care Coffee Urn Attendant Name Role Phone Katja Priest DO Primary Care Provider + [phone] Reason for Visit * Reason Onset Date Comments Health Maintenance 12/10/2023 Encounter Details Date Type Department Care Team (Late st Contact Info) Description 12/10/2023 Telephone Family Medicine [address] [place] [phone] Katja Priest DO [address] [place] [address] [place] [address] Health Maintenance Allergies No known active allergiesdocumented as of this encounter (statuses as of 12/10/2023) Medications Medication Sig Dispensed Refills Start Date [...] skin once a week. 4 mL 11 01/23/2023 Active Atorvastatin Calcium 10 MG Oral Tablet [...] 05/09/2023 Active Furosemide 40 MG Oral Tablet (Lasix)Indications :Generalized edema TAKE ONE TABLET BY MOUTH EVERY DAY NEEDED 90 Tablet 1 06/14/2023 Active Trulicity 0.75 MG/0.5ML Subcutaneous Solution Pen-injector (Dulaglutide) Inject 0.75 mg subcutaneously once a week 2 mL 5 06/24/2023 Active buPROPion HCl ER (SR) 150 MG [...] 11/12/2023 Active Irbesartan 150 MG Oral Tablet (Avapro)Indication s:Primary hypertension TAKE ONE TABLET BY MOUTH BEFORE bedtime 90 Tablet 3 12/03/2023 Active documented as of this encounter (statuses as of 12/10/2023) Active Problems Problem Noted Date Diagnosed Date Morbid obesity with BMI of 40.0-44.9, adult 02/13 Overview: 242 Primary hypertension 07/06/2021 Thrombocytopenia 07/08/2018 Overview: 137,000 Macrocytic anemia 08/13/2017 Encounter for long-term (current) use of medicat ions 05/11/2016 Rheumatoid arthritis involvi ng multiple sites with positive rheumatoid factor 04/25/2016 Generalized osteoarthritis 12/07/2009 Heartburn 06/25/2002 Full dentures 06/25/2002 documented as of this encounter (statuses as of 12/10/2023) Resolved Problems Problem Noted Date Diagnosed Date [...] as of this encounter (statuses as of 12/10/2023) Immunizations Name Administration Dates Next Due COVID-19 [...] lent, No Preserve, IM 03/06/2016 Seasonal Influenza, Split, I IV3, With Preserve, Inj 01/21/2015,01/28/2014,01/08/2013,01/13,07/11/2011,03/29/2011(Deferred: Patient Refused - does not want, [...] encounter Miscellaneous Notes * Telephone Encounter - Anu Rod LPN - 12/10/2023 12:25 PM EDT Care Gaps Comprehensive Care Outreach Last Office/Telemedicine Visit: 07/02/2023 (in office), Visit date not found (telemedicine) Next Office Visit: 02/04/2024 Hemoglobin AIC Results: Lab Results Component Value Date/Time HEMOGLOBIN A1C - [facility] 5.4 07/02/2023 01:53 PM HEMOGLOBIN A1C - [facility] 5.4 12/05/2022 10:22 AM HEMOGLOBIN A1C - [facility] 5.6 04/26/2022 02:42 PM HEMOGLOBIN A1C - [facility] 5.6 06/06/2018 09:30 AM BP Readings from Last 1 Encounters: 08/05/23 120/60 Reviewed Health Maintenance below: Health Maintenance Topic Date Due Depression Screening 05/26/2020 COVID-19 Vaccine ( season) 2022 DXA Scan 07/31/2023 Pneumococcal Vaccine: 65+ Years (4 of 4 - PPSV23 or PCV20) 08/12/2023 Colorectal Cancer Screening 12/06/2023 Influenza Vaccine (FLU shot) (1) 12/15/2023 GFR 01/15/2024 Dexa 5 year scheduled Colon 5 year she wants to wait Lab defer to pcp Care Gap Outreach Action Taken: Spoke to patient documented in this encounter Plan of Treatment Upcoming Encounters Date Type Department Care Team (Late st Contact Info) Description 01/08/2024 9:30 AM EDT Imaging Radiology, [address] [place] [address] 02/04/2024 9:30 AM EDT Office Visit Family Medicine [address] [place] [phone] Katja Priest[address] [place] [address] 02/13/2024 11:30 AM EDT Laboratory Laboratory [address] [place] [phone] [place], Lab [address] [place] [address] 02/20/2024 11:30 AM EST Office Visit Hematology/Oncology [facility] [address] [facility] [place] [phone] Олгьа Abdi CRNP [address] [place] [address] [place] [address] 04/21/2024 12:30 PM EST Imaging Radiology [address] [place] [address] 08/07/2024 10:20 AM EDT Office Visit Rheumatology [address] [place] [phone] Kevin Sánchez MD [address] [place] [address] [place] [address] Scheduled Orders Name Type Priority Associated Diagnoses Orde r Schedule DEXA SCAN/BONE MINERAL AXIAL Medical Imaging Routine Osteoporosis Expected: 12/10/2023, Expires: 12/09/2024 Scheduled Procedures Name Priority Associated Diagnoses Date/Ti [...] as of this encounter Visit Diagnoses Diagnosis Osteoporosis- Primary Osteoporosis, unspecified documented in this encounter Care Teams Coffee Urn Attendant Relationship Specialty Start Date End Date Katja Priest DO [address] [place] [address] [place] [phone] PCP - General Internal Medicine 07/02/23 documented as of this encounter
--- OUTSIDE RECORDS SUMMARY | 2024-05-27 05:50 | External Medical Summary | Summary of Care ---
Author Name Unknown Organization [facility] Address [address] [facility] [place] [address] Phone [phone] Care Team Providers Care Allergist Immunologist Name Role Phone Dave Blackburn DO Primary Care Provider + [phone] Reason for Visit * Reason Onset Date Comments Medication Refill 12/02/2023 Encounter Details Date Type Department Care Team (Late st Contact Info) Description 12/02/2023 Refill Family Medicine [address] [place] [phone] Dave Blackburn DO [address] [place] [address] [place] [address] Primary hypertension Allergies No known active allergiesdocumented as of this encounter (statuses as of 12/03/2023) Medications Medication Sig Dispensed Refills Start Date [...] 05/09/2023 Active Furosemide 40 MG Oral Tablet (Lasix)Indication [...] before bedtime. 180 Tablet 1 10/08/2023 Active methylPREDNISolon e 4 MG Oral Tablet [...] 11/12/2023 Active Irbesartan 150 MG Oral Tablet (Avapro)Indicatio ns:Primary hypertension TAKE ONE TABLET BY MOUTH BEFORE bedtime 90 Tablet 3 12/03/2023 Active Irbesartan 150 MG Oral Tablet (Avapro)Indicatio ns:Primary hypertension TAKE ONE TABLET BY MOUTH BEFORE bedtime 90 Tablet 1 06/14/2023 12/02/19 24 Discontinu ed(Refill) documented as of this encounter (statuses as of 12/03/2023) Active Problems Problem Noted Date Diagnosed Date Morbid obesity with BMI of 40.0-44.9, adult 02/13 Overview: 242 Primary hypertension 07/06/2021 Thrombocytopenia 07/08/2018 Overview: 137,000 Macrocytic anemia 08/13/2017 Encounter for long-term (current) use of medicat ions 05/11/2016 Rheumatoid arthritis involvi ng multiple sites with positive rheumatoid factor 04/25/2016 Generalized osteoarthritis 12/07/2009 Heartburn 06/25/2002 Full dentures 06/25/2002 documented as of this encounter (statuses as of 12/03/2023) Resolved Problems Problem Noted Date Diagnosed Date [...] as of this encounter (statuses as of 12/03/2023) Immunizations Name Administration Dates Next Due COVID-19 [...] Telephone Encounter - Dave Blackburn DO - 12/03/2023 8:31 AM EDTSigned Prescriptions: Disp Refills Irbesartan 150 MG Oral Tablet (Avapro) 90 Tab*3 Sig: TAKE ONE TABLET BY MOUTH BEFORE bedtime Authorizing Provider: DAVE BLACKBURN * Telephone Encounter - Mindi Logan RN - 12/03/2023 6:56 AM EDTPending Prescriptions: Disp Refills Irbesartan 150 MG Oral Tablet (Avapro) 90 Tab*1 Sig: TAKE ONE TABLET BY MOUTH BEFORE bedtime * Telephone Encounter - Aissatou Roper OSA - 12/02/2023 3:17 PM EDT Did you pend patient's preferred pharmacy and medication before forwarding?yes Pharmacy: [facility], [facility] [place] Pending Prescriptions: Disp Refills Irbesartan 150 MG Oral Tablet (Avapro) 90 Tab*1 Last Visit: 07/02/2023 (in office), Visit date not found (telemedicine) Next Visit: 02/04/2024 If no future appointments scheduled, and last appointment is greater than a year ago, please schedule patient for a follow-up appointment Last date the medication was ordered: 3 Is this request for a controlled substance?No [...] 01:53 PM TSH 2.52 08/28/2018 09:50 AM LDLCALC 77 06/06/2018 09:30 AM LDLDIRECT 46 01/14/2023 02:52 PM LDLDIRECT NOT APPLICABLE 08/05/2014 11:20 AM ALT 15 01/14/2023 02:52 PM ALT 17 09/18/2019 10:06 AM HGBA1C 5.4 07/02/2023 01:53 PM HGBA1C 5.6 06/06/2018 09:30 AM documented in this encounter Plan of Treatment Upcoming Encounters Date Type Department Care Team (Late st Contact Info) Description 02/04/2024 9:30 AM EDT Office Visit Family Medicine [address] [place] [phone] [address] [place] [address] 02/13/2024 11:30 AM EDT Laboratory Laboratory [address] [place] [phone] [place] [address] 02/20/2024 11:30 AM EST Office Visit Hematology/Oncology [facility] [place] 200 [facility] [place] [phone] Ольга Abdi CRNP [address] [facility] [place] [address] 04/21/2024 12:30 PM EST Imaging Radiology [address] [place] [address] 08/07/2024 10:20 AM EDT Office Visit Rheumatology [address] [place] [phone] Kevin Sánchez MD [address] [place] [address] [place] [address] Scheduled Procedures Name Priority Associated Diagnoses Date/Ti [...] 07/02/2023, 1 , 12/05/2022, Additional history exists DTaP,Tdap,and Td Vaccines (3 - Td or Tdap) 08/14/2027 [...] of this encounter Visit Diagnoses Diagnosis Primary hypertension Unspecified essential hypertension documented in this encounter Care Teams Allergist Immunologist Relationship Specialty Start Date End Date BlackburnDave gaming DO [address] [place] [address] [place] [phone] PCP - General Internal Medicine 07/02/23 documented as of this encounter
--- OUTSIDE RECORDS SUMMARY | 2024-05-27 05:50 | External Medical Summary | Summary of Care ---
Author Name Unknown Organization [facility] Address [address] [facility] [place] [address] Phone [phone] Care Team Providers Care Home Worker Name Role Phone PriestKatja gaming Primary Care Provider [phone] Encounter Details Date Type Department Care Team (Late st Contact Info) Description 01/02/2024 Population Health External Data Unspecified Department Allergies No known active allergiesdocumented as of this encounter (statuses as of 01/06/2024) Medications Medication Sig Dispensed Refills Start Date [...] Etanercept 50 MG/ML Subcutaneous Solution Auto-injector (Enbrel Sureclick)Indicatio ns:Arthritis, rheumatoid (HCC) Inject 50 mg under the [...] a week 2 mL 5 12/13/2023 Active documented as of this encounter (statuses as of 01/06/2024) Active Problems Problem Noted Date Diagnosed Date Morbid obesity with BMI of 40.0-44.9, adult 02/13 Overview: 242 Primary hypertension 07/06/2021 Thrombocytopenia 07/08/2018 Overview: 137,000 Macrocytic anemia 08/13/2017 Encounter for long-term (current) use of medicat ions 05/11/2016 Rheumatoid arthritis involvi ng multiple sites with positive rheumatoid factor 04/25/2016 Generalized osteoarthritis 12/07/2009 Heartburn 06/25/2002 Full dentures 06/25/2002 documented as of this encounter (statuses as of 01/06/2024) Resolved Problems Problem Noted Date Diagnosed Date [...] as of this encounter (statuses as of 01/06/2024) Immunizations Name Administration Dates Next Due COVID-19 [...] Description 01/08/2024 9:30 AM EDT Imaging Radiology, [address] [place] [address] 02/04/2024 9:30 AM EDT Office Visit Family Medicine [address] [place] [phone] [address] [place] [address] 02/13/2024 11:30 AM EDT Laboratory Laboratory [address] [place] [phone] [facility] [address] [place] [address] 02/20/2024 11:30 AM EST Office Visit Hematology/Oncology [facility] [address] [facility] [place] [phone] Ольга Abdi CRNP [address] [place] [address] [place] [address] 04/21/2024 12:30 PM EST Imaging Radiology [address] [place] [address] 08/07/2024 10:20 AM EDT Office Visit Rheumatology [address] [place] [phone] Kevin Sánchez MD [facility] [place] [address] Scheduled Procedures Name Priority Associated Diagnoses Date/Ti [...] filedocumented as of this encounter Care Teams Home Worker Relationship Specialty Start Date End Date Katja Priest DO [address] [place] [address] [place] [phone] PCP - General Internal Medicine 07/02/23 documented as of this encounter
--- OUTSIDE RECORDS SUMMARY | 2024-05-27 07:35 | External Medical Summary | Summary of Care ---
Author Name Unknown Organization [facility] Address [address] [facility] [place] [address] Phone [phone] Care Team Providers Care Racing Manager Name Role Phone Katja Priest DO Primary Care Provider + [phone] Reason for Visit * Reason Onset Date Comments Advice 05/26/2024 Encounter Details Date Type Department Care Team (Late st Contact Info) Description 05/26/2024 Telephone Family Medicine [address] [place] [phone] Maribeth Purdy PA-C [address] [place] [address] [place] [phone] Advice Allergies No known active allergiesdocumented as of this encounter (statuses as of 05/27/2024) Medications GNP VITAMIN B-12 1000 MCG PO [...] sites with positive rheumatoid factor ([facility]) Take 1 Tablet by mouth in the morning. In the morning.. 90 Tablet 2 02/04/20 24 Active Atorvastatin Calcium 10 MG Oral Tablet (Lipitor) TAKE ONE TABLET BY MOUTH EVERY DAY 90 Tablet 3 02/27/20 24 Active Ozempic (0.25 or 0.5 MG/DOSE) 2 MG/3ML Solution Pen-injector (Semaglutide(0.25 or 0.5MG/DOS))Indica tions:DM type 2, goal HbA1c < 7% ([facility]) Inject 0.25mg under the skin once weekly for 4 weeks then increase to 0.5mg under the skin once weekly thereafter 9 mL 1 4 11:25 AM EST 03/06/20 24 Active Diclofenac Sodium 50 MG Oral Tablet Delayed Release (Voltaren)Indicat ions:Generalized osteoarthritis,Rh eumatoid arthritis involving multiple sites with positive rheumatoid factor ([facility]) Take 1 Tablet by mouth 3 [...] with BMI of 40.0-44.9, adult ([facility]) Take 1 Tablet by mouth in [...] as of this encounter (statuses as of 05/27/2024) Active Problems Problem Noted Date Diagnosed Date [...] as of this encounter (statuses as of 05/27/2024) Resolved Problems Problem Noted Date Diagnosed Date [...] as of this encounter (statuses as of 05/27/2024) Immunizations Name Administration Dates Next Due COVID-19 mRNA, LNP-s, No Pre serve, 2-Dose Series (Moderna) 02/21/2021,08/12/2020,07/08/2020 COVID-19, LNP-s, No Preserve , Ld-sucrose, Ages 12+ (Pfizer) 10/10/2021 Covid-19, Mrna, Lnp-s, Pf, B ivalent, 30 Mcg, IM, 12 yrs and above (Pfizer) 01/30/2022 PPD 08/24/2011 Pneumococcal Conjugate Vacc, 13 Valent (Prevnar) 02/26/2019 Pneumococcal Conjugate Vacci ne, 20-valent ([id number]) 02/04/2024 Pneumococcal Polysaccharide PPV23 (Pneumovax) 04/24/2013,03/08/2008 Seasonal [...] encounter Miscellaneous Notes * Telephone Encounter - Mindi Logan RN - 05/26/2024 3:42 PM EST Pt agreeable to go to [facility], records faxed * Telephone Encounter - Maribeth Purdy PA-C - 05/26/2024 3:35 PM EST Please call pt. Her white count is really high. Platelets are low. I don't have all of her labs back yet but the ones that are back, are really abnormal. With her symptoms, she needs to go to ER. * Telephone Encounter - Dyan Abraham OSA - 05/26/2024 10:50 AM EST Pt saw you today for uti and not feeling well. She stated that she thought she was suppose to be anabx. Can someone advise? documented in this encounter Plan of Treatment Upcoming Encounters Date Type Department Care Team (Late st Contact Info) Description 06/10/2024 10:40 AM EST Nutrition Services Nutrition & Weight Management, [facility] [address] [place] [address] Layla Ramesh RDN [address] [place] [address] 08/07/2024 12:40 PM EDT Office Visit Nutrition & Weight Management, [facility] [address] [place] [address] Amberly Barrera PA-C [address] [place] [address] 08/14/2024 10:20 AM EDT Office Visit Rheumatology [address] [place] [phone] Kevin Sánchez MD [address] [place] [address] [place] [address] 09/29/2024 8:50 AM EDT Office Visit Family Medicine [address] [place] [phone] [place] [address] 04/22/2025 12:30 PM EST Imaging Radiology [address] [place] [address] Scheduled Procedures Name Priority Associated Diagnoses Date/Ti me COLONOSCOPY FLEXIBLE PROXIMA L DIAGNOSTIC Recall Family history of colonic polyps Health Maintenance Due Date Last Done Comments Sigmoidoscopy 08/12/2003 Fecal Occult Blood Test 06/07/2018 06/07/19 18, 08/13/2014, 07/30/2013, Additional history exists Depression Screening 05/26/2020 05/26/2019 Colonoscopy 12/06/2023 12/05/2018, 12/05/2018 COVID-19 Vaccine ( season) 2023 01/30/2022, 10/10/2021, 02/21/2021, Additional history exists Colorectal Cancer Screening 05/07/2024 Mammogram 04/21/2025 04/21/2024, 10/2024, 04/16/2023, Additional history exists GFR 05/26/2025 05/26/2024, 01/14, 01/14/2023, Additional history exists Albumin/Creatinine Ratio 12/05/2025 12/05/2022, 01/13 Cologuard 05/06/2027 05/06/2024 Diabetes Screening 05/26/2027 05/26/2024, 0 05/26/2024, 02/04/2024, Additional history exists DTap/Tdap Vaccines (3 - [...] filedocumented as of this encounter Care Teams Racing Manager Relationship Specialty Start Date End Date Katja Priest DO [address] [place] [address] [place] [address] PCP - General Internal Medicine 07/02/23 documented as of this encounter
--- NOTE | 2024-05-27 08:05 | Nephrology Consultation ---
Date of Consultation May 27, 2024 Assessment & Plan (1) ROGER (acute kidney injury): improving Stage 3 ROGER probably not oliguric. and w/ baseline creatinine 1. high risk for morbidity, mortality in this clinical setting w/ immunocompromised pt. -no briscoe needed; she's getting up to void. -emerging hyperchloremia > changed IVF to 1/2 NS w/ 75 mEq sodium bicarb at lower rate to address NAGMA -strict I /O as able -daily bmp -advance diet as tolerated > may be challenging w/ current abd pain; on clears currently -no indication for urgent HD -cont to hold OP diuretics and ARB Care reviewed w/ Dr Jacob by phone including on paper improvements but ongoing severe symptoms and risk for disseminated fungal infection in setting of severe sepsis; IVF changes discussed; we are in agreement. (2) Sepsis: with leukocytosis, tachycardia, Stage 3 ROGER, pyuria, inflamed R kidney and peritoneal signs on exam > presumptive E coli bacteremia at least given her presentation, ongoing sx -on empiric cefepime, dapto -cont ivf as above -f/u pending cultures > urine w/ prelim E coli (3) Immunocompromised state due to drug therapy: on TNF johnathan as OP >> at risk for more severe infections w/ this >>consider empiric coverage for disseminated fungal infection, emile histoplasmosis >>consider fungal blood cxs and urine/serum Histoplasma Ag >>consider inf dzs consultation History of Present Illness Reason for Consultation: ROGER, enlarged R kidney Requesting Physician: Dr Webster Attending Physician: Gin Jacob MD History of Present Illness 63 y/o F whom I'm asked to see for ROGER, enlarged R kidney was admitted overnight for ROGER and R pyelonephritis after presenting with 3 days of severe R flank pain radiating to groin, N/V, decreased po and decreased UOP, transient F a few days prior to admission. She believed she had pulled a muscle in her R back on 05/22. She saw her PCP yesterday AM for evaluation particularly of N > labs were obtained and creatinine was 3.9, up from baseline 1. RUQ u/s showed 12.7 cm kidney and enlarged liver w/ presumptive 1.8 cm hemangioma for which f/u imaging recommended. Sent to the ER though b/c initial labs showed WBC 28K and plts 125. Creatinine was 4.3 on arrival here. PMH includes rheumatoid arthritis on etanercept, OA, hypertension, Class 3 obesity, thrombocytopenia, macrocytic anemia, GERD. endorses remote one time hx of kidney stones which did require urologic intervention. She has ongoing significant back and low abdominal pain R > L maybe but pain is diffuse and severe; tells me she did childbirth w/o pain medications and this pain is worse than that. no pain voiding now though urine is foul. late last week for a few days before 05/22 she had lots of pressure w/ voids. no F since arrival. she is not dypsneic at rest but some w/ getting up to bathroom. some N still but that's mostly better; marked xerostomia admission CT non con showed mildly edematous enlarged R kidney w/o stone or hydroureteronephrosis. UA inflamed/active sediment. She's had 3L NS w/ ongoing NS at 75 ml/hr. on empiric abtx as below. on clears. Allergies Allergy/AdvReac Type Severity Reaction Status Date / Time No Known Allergies Allergy Verified 05/27/24 01:51 Home Medications Medication Instructions Recorded Confirmed Type acetaminophen 500 mg tablet 1,000 mg PO Q6H PRN Pain 02/16/20 05/27/24 History bupropion HCl 150 mg tablet,12 hr 150 mg PO AMHS 02/16/20 05/27/24 History sustained-release calcium 600 mg (as 2 tab PO DAILY 02/16/20 05/27/24 History carbonate)-vitamin D3 5 mcg (200 unit) tablet (Calcium 600 + D(3)) etanercept 50 mg/mL (1 mL) 50 mg subcut WK 02/16/20 05/27/24 History subcutaneous pen injector (Enbrel SureClick) folic acid 1 mg tablet 1 mg PO QAM 02/16/20 05/27/24 History furosemide 40 mg tablet 40 mg PO DAILY PRN Swelling 02/16/20 05/27/24 History hydrochlorothiazide 12.5 mg capsule 12.5 mg PO DAILY 02/16/20 05/27/24 History omeprazole 20 mg capsule,delayed 20 mg PO DAILY 02/16/20 05/27/24 History release atorvastatin 10 mg tablet 10 mg PO DAILY 05/27/24 05/27/24 History cyanocobalamin (vitamin B-12) 1,000 mcg PO DAILY 05/27/24 05/27/24 History 1,000 mcg tablet (Vitamin B-12) irbesartan 150 mg tablet 150 mg PO HS 05/27/24 05/27/24 History naltrexone 50 mg tablet 50 mg PO QAM 05/27/24 05/27/24 History ondansetron HCl 4 mg tablet 4 mg PO Q6 PRN Nausea 05/27/24 05/27/24 History semaglutide 0.25 mg or 0.5 mg (2 0.5 mg subcut WK 05/27/24 05/27/24 History mg/3 mL) subcutaneous pen injector (Ozempic) Patient History Social History Smoking Status: Former smoker Hx Alcohol Use: No Hx Substance Use: No Preferred Language: Danish Communication Ability: Effective Compliance Technician Required: No Beliefs That Will Affect Care: None Current Living Situation: Spouse Feels Safe at Home: Yes Safety Concerns: Feels Safe At This Time Assistive Devices: Cane, Denture - Upper, Denture - Lower, Glasses and Walker Review of Systems 2 Review of Systems: All systems reviewed & are unremarkable except as noted in HPI & below Physical Exam 2 Constitutional: well developed, well nourished, + acute distress (mild w/ pain), + obese and cooperative Eyes: EOM intact bilaterally ENMT: Ears: no external ear abnormality Nose: no external nose abnormality Mouth: + dry oral mucous membranes Neck: no nuchal rigidity Respiratory: normal respiratory effort Auscultation: + diminished lung sounds Cardiovascular: Rate/Rhythm: regular rhythm and + tachycardic Extremities: no edema Gastrointestinal (Abdomen): Inspection/Auscultation: normal bowel sounds P ercussion/Palpation: + abdomen tender, + guarding (+ peritoneal signs) and abdomen soft Musculoskeletal: Extremities: strength 5/5 throughout Skin: no rashes, warm and dry pallor; not diaphoretic Neurologic: trotter, fluent speech, no tremor Psychiatric: Orientation: alert and oriented x 3 Speech: normal rate/rhythm/volume of speech Affect: euthymic affect and + anxious affect Results & Data Vital Signs (Past 12 Hours) Vital Signs Temp Pulse Pulse Resp BP Pulse Ox O2 Del Method 05/27/24 04:57 36.8 C 95 H 18 131/75 96 Room Air 05/27/24 04:00 95 H 20 128/77 96 Room Air 05/27/24 03:00 93 H 20 129/76 98 Room Air 05/27/24 02:00 95 H 18 141/88 H 94 Room Air 05/27/24 00:34 91 H 05/27/24 00:00 95 H 20 120/84 98 Room Air 05/26/24 23:35 97 H 18 133/66 98 Room Air 05/26/24 23:00 98 H 18 97 Room Air 05/26/24 22:00 102 H 18 126/80 97 Room Air 05/26/24 20:39 99 H Laboratory Results 05/27/24 07:46 05/27/24 07:46 UA 1028, 3+ protien, 2+ nitr/LE/bili, >50 WBC, 1+ blood, granular casts Diagnostic Findings cxr clear
[2024-05-27 08:11] LABS: Basophils # (auto) 0.05 K/uL (0.00-0.20); Basophils % (auto) 0.3 %; Eosinophils # (auto) 0.04 K/uL (0.00-0.50); Eosinophils % (auto) 0.2 %; Hematocrit (blood only) 29.8 % (37.0-47.0); Hemoglobin 9.7 g/dl (12.0-16.0); Immature Granulocytes # (auto) 0.65 K/uL (0.01-0.20); Immature Granulocytes % (auto) 3.7 %; Lymphocytes % (auto) 5.7 %; Mean Corpuscular Hemoglobin 31.2 pg (25.0-34.0); Mean Corpuscular Hgb Conc 32.6 g/dL (32.0-36.0); Mean Corpuscular Volume 95.8 fL (80.0-100.0); Mean Platelet Volume 11.8 fL (9.4-12.4); Monocytes # (auto) 1.78 K/uL (0.11-0.59); Monocytes % (auto) 10.1 %; Neutrophils # (auto) 14.07 K/uL (1.40-6.50); Platelet Count 125 K/uL (130-400); RDW Coefficient of Variation 15.9 % (11.5-14.5); RDW Standard Deviation 56.2 fL (36.4-46.3); Red Blood Count 3.11 M/uL (4.20-5.40); White Blood Count 17.59 K/ul (4.8-10.8)
[2024-05-27 08:22] LABS: BUN Creatinine Ratio 16.5 (10-20); Calcium 8.9 mg/dl (8.6-10.3); Creatinine Clr Calc Pharmacy 23.9 ml/min; Magnesium 1.9 mg/dl (1.7-2.4); Potassium 3.7 mmol/L (3.5-5.1)
[2024-05-27] MEDS: FOLIC ACID 1 MG TAB PO SCH (08:36)
[2024-05-27] MEDS: CYANOCOBALAMIN (B-12) 500 MCG TABLET PO SCH (08:38)
[2024-05-27] MEDS: PANTOprazole 40 MG TAB PO SCH (08:38)
[2024-05-27] MEDS: buPROPion SR 150 MG TABCR PO SCH (08:38)
[2024-05-27] MEDS: CALCIUM 600MG + VIT D 400 IU TAB PO SCH (08:38)
[2024-05-27] MEDS: HEPARIN SOD 5,000 UNIT/0.5 ML VIAL SQ SCH (08:41)
--- NOTE | 2024-05-27 12:17 | Communication Note ---
Date of Service: May 27, 2024 Patient seen and examined Reports myalgia, right flank pain, lower abd discomfort. Stated no vomiting today Had fever at home but none today Exam notable for obese woman in no distress, right CVA tenderness Reviewed labs and imaging. Lab notable for leukocytosis, ROGER. UA suggestive of UTI CT abd/Pelvis suggestive of pyelonephritis in view of history and physical exam Patient denied any recent urological procedure or antibiotics in the past 3 months Based on history and findings, will deescal abx from dapto and cefepime to ceftriaxone for now Preliminary UCx is growing E coli. Will follow up sensitivities Continue IVF. Cr trending down Other plans as detailed in H/P this AM
--- NOTE | 2024-05-27 12:44 | Electrocardiogram Report ---
Test Reason : Blood Pressure : */* mmHG Vent. Rate : 99 BPM Atrial Rate : 99 BPM P-R Int : 144 ms QRS Dur : 78 ms QT Int : 324 ms P-R-T Axes : 59 -22 58 degrees QTcB Int : 415 ms Normal sinus rhythm Low voltage QRS Possible Anterolateral infarct , age undetermined Abnormal ECG When compared with ECG of 03-Nov-2001 23:39, Premature atrial complexes are no longer Present Vent. rate has increased by 41 bpm Borderline criteria for Anterolateral infarct are now Present Confirmed by Patric Guajardo ([id number]) on 05/27/2024 12:44:08 PM Referred By: REFERRED SELF Confirmed By: Patric Guajardo
[2024-05-27] MEDS: cefTRIAXone SODIUM 2,000 MG/50 ML BAG IV SCH (13:35)
[2024-05-27] MEDS: SODIUM BICARBONATE 8.4% 75 MEQ in SODIUM CHLORIDE 0.45 % 1,000 ML IV SCH (13:59)
[2024-05-27] MEDS ORDERED: CEFEPIME 2000MG 2,000 MG/20 ML SYR IV SCH (21:00)
[2024-05-28 06:59] LABS: Mean Corpuscular Hemoglobin 31.1 pg (25.0-34.0); Mean Corpuscular Hgb Conc 32.3 g/dL (32.0-36.0); Mean Corpuscular Volume 96.3 fL (80.0-100.0); Mean Platelet Volume 11.2 fL (9.4-12.4); Platelet Count 141 K/uL (130-400); RDW Coefficient of Variation 16.2 % (11.5-14.5); RDW Standard Deviation 57.3 fL (36.4-46.3); Red Blood Count 3.22 M/uL (4.20-5.40); White Blood Count 13.86 K/ul (4.8-10.8)
[2024-05-28 07:36] LABS: Albumin Globulin Ratio 0.9 (0.9-2); Albumin Level 3.4 gm/dl (3.4-5.0); Bilirubin,Total 1.3 mg/dl (0.2-1.0); Calcium 9.1 mg/dl (8.6-10.3); Creatinine Clr Calc Pharmacy 42.9 ml/min; Globulin 3.9 gm/dl (2.5-4.0); Potassium 3.5 mmol/L (3.5-5.1); Total Protein 7.3 gm/dl (6.0-8.3)
--- NOTE | 2024-05-28 08:41 | Nephrology Progress Note ---
Date of Service May 28, 2024 Assessment & Plan (1) ROGER (acute kidney injury): Plan: further improving prerenal Stage 3 ROGER probably not oliguric. and w/ baseline creatinine 1. high risk for morbidity, mortality in this clinical setting w/ immunocompromised pt. -no briscoe needed; she's getting up to void. -ongoing hyperchloremia but NAGMA resolved > changed IVF to 1/2 NS at lower rate -strict I /O as able -daily bmp -diet advanced now to heart healthy and tolerating -no indication for urgent HD ->>>>suggest trial flomax for back twitching w/ micturition > hospitalist to order -cont to hold OP diuretics and ARB Care reviewed w/ Dr Jacob by phone including on paper improvements but ongoing significant symptoms and risk for disseminated fungal infection in setting of severe sepsis; IVF changes discussed; we are in agreement. (2) Sepsis: Plan: with leukocytosis, tachycardia, Stage 3 ROGER, pyuria, inflamed R kidney and peritoneal signs on exam > presumptive E coli bacteremia at least given her presentation though cxs NGTD, and improved but ongoing sx; -on empiric cefepime, dapto -cont ivf as above -f/u pending cultures > urine w/ E coli; bld cxs NGTD (3) Immunocompromised state due to drug therapy: Plan: on TNF johnathan as OP >> at risk for more severe infections w/ this; if not improving consider >empiric coverage for disseminated fungal infection, emile histoplasmosis >fungal blood cxs and urine/serum Histoplasma Ag >inf dzs consultation Admission and Anticipated Discharge Date Admission Date: May 27, 2024 Subjective no interval events clinically. c/o generalized weakness still quite uncomfortable > c/o R back twinges and twinges down legs; also some with voiding. no n/v,/f. + ambulation Review of Systems 2 Review of Systems: All systems reviewed & are unremarkable except as noted in Subjective Physical Exam 2 Constitutional: well developed, well nourished, + acute distress (mild w/ pain, discomfort), + obese and cooperative Eyes: EOM intact bilaterally ENMT: Ears: no external ear abnormality Nose: no external nose abnormality Mouth: + dry oral mucous membranes Neck: no nuchal rigidity Respiratory: normal respiratory effort Auscultation: + diminished lung sounds Cardiovascular: Rate/Rhythm: regular rate and regular rhythm Extremities: n o edema Gastrointestinal (Abdomen): Inspection/Auscultation: normal bowel sounds P ercussion/Palpation: abdomen soft; abdomen nontender (except some R flank pain) and no guarding Musculoskeletal: Extremities: strength 5/5 throughout Skin: no rashes, warm and dry Psychiatric: Orientation: alert and oriented x 3 Speech: normal rate/rhythm/volume of speech Affect: euthymic affect and + anxious affect Results & Data Vital Signs (Past 12 Hours) Vital Signs Temp Pulse Pulse Resp BP Pulse Ox Pulse Ox 05/28/24 07:00 82 05/28/24 04:48 95 05/28/24 03:27 37.2 C 81 18 152/82 H 97 05/27/24 22:50 91 H 05/27/24 22:15 37.0 C 90 18 141/85 H 95 05/27/24 21:30 O2 Del Method O2 Del Method 05/28/24 07:00 05/28/24 04:48 Room Air 05/28/24 03:27 Room Air 05/27/24 22:50 05/27/24 22:15 Room Air 05/27/24 21:30 Room Air Laboratory Results 05/28/24 06:38 05/28/24 06:38
[2024-05-28] MEDS: SODIUM CHLORIDE 0.45 % 1,000 ML IV SCH (09:24)
--- NOTE | 2024-05-28 10:38 | Hospitalist Progress Note ---
Date of Service May 28, 2024 Assessment & Plan (1) Sepsis: (2) Pyelonephritis of right kidney: (3) ROGER (acute kidney injury): Plan: 63-year-old female with past medical history significant for hypertension, morbid obesity, heartburn, generalized osteoarthritis, thrombocytopenia, macrocytic anemia, rheumatoid arthritis involving multiple sites with positive rheumatoid factor, presents with right flank pain and found to have ROGER and UTI. Severe sepsis Acute pyelonephritis Acute kidney injury CT abd/pelvis noted asymmetric right mildly edematous/enlarged right kidney with minimal surrounding fat stranding Urine culture growing E coli. Blood culture negative so far Leukocytosis improving, from 20K on admission to 13K today Continue IV ceftriaxone for now while awaiting speciation Cr was 4.31 on presentation. ROGER improving with Cr trending down to 1.6 today Continue to hold home HCTZ and irbesartan Home ertanecept on hold as well Appreciate Nephrology recs Continue IVF Avoid nephrotoxic agents Hypertension Hold hydrochlorothiazide and irbesartan for ROGER Will monitor Hyperlipidemia Hold statin for now with elevated LFT Thrombocytopenia Platelets 123 on admission Plt improved today to 145 Rheumatoid arthritis On Enbrel weekly which was held for now Morbid obesity On Ozempic which will be held for now GERD On omeprazole Depression On bupropion DVT prophylaxis Heparin subcu Disposition Telemetry Full code. I spent a total of 50 minutes coordinating, documenting and providing care for this patient excluding time spent in performance of separately billed services Admission and Anticipated Discharge Date Admission Date: May 27, 2024 Subjective Patient seen and examined Reports right flank and back pain, generalized weakness. She reports nausea is improved, Vomiting is resolved Reports low abd discomfort and some flank discomfort with micturition. No fever, chills, cough, chest pain, SOB, diarrhea Physical Exam Constitutional: + well hydrated and + obese; no acute di stress Eyes: PERRL, conjunctivae normal, anicteric sclerae ENMT: external ear and nose normal, oropharynx normal Respiratory: normal respiratory effort, lungs clear to auscultation Cardiovascular: Rate/Rhythm: regular rate and regular rhythm Gastrointestinal (Abdomen): normal bowel sounds, soft, nontender, no hepatosplenomegaly Neurologic: PERRL, EOMI, accommodation nl, no face palsy, no dysarthria Psychiatric: A+Ox3, euthymic affect Genitourinary: +Right CVA tenderness Results & Data Results & Data Vital Signs (Past 12 Hours) Vital Signs Temp Pulse Pulse Resp BP Pulse Ox Pulse Ox 05/28/24 10:24 37.0 C 88 18 137/77 95 05/28/24 07:00 82 05/28/24 04:48 95 05/28/24 03:27 37.2 C 81 18 152/82 H 97 05/27/24 22:50 91 H O2 Del Method O2 Del Method 05/28/24 10:24 Room Air 05/28/24 07:00 05/28/24 04:48 Room Air 05/28/24 03:27 Room Air 05/27/24 22:50 Laboratory Results Abnormal lab results 05/28/24 Range/Units 06:38 WBC 13.86 H (4.8-10.8) K/ul RBC 3.22 L (4.20-5.40) M/uL Hgb 10.0 L (12.0-16.0) g/dl Hct 31.0 L (37.0-47.0) % RDW Std Deviation 57.3 H (36.4-46.3) fL RDW Coeff of Izaiah 16.2 H (11.5-14.5) % Chloride 108 H (98-107) mmol/L BUN 32 H (6-23) mg/dl Creatinine 1.60 H D (0.6-1.2) mg/dl Glucose 114 H (70-99(Fasting)) mg/dl Total Bilirubin 1.3 H D (0.2-1.0) mg/dl AST 43 H (13-39) U/L Alkaline Phosphatase 217 H (34-104) U/L
[2024-05-28] MEDS: TAMSULOSIN HCL 0.4 MG CAP PO SCH (11:30)
[2024-05-29 07:33] LABS: Hematocrit (blood only) 26.9 % (37.0-47.0); Hemoglobin 8.7 g/dl (12.0-16.0); Mean Corpuscular Hemoglobin 31.3 pg (25.0-34.0); Mean Corpuscular Hgb Conc 32.3 g/dL (32.0-36.0); Mean Corpuscular Volume 96.8 fL (80.0-100.0); Mean Platelet Volume 10.8 fL (9.4-12.4); Platelet Count 124 K/uL (130-400); RDW Standard Deviation 57.2 fL (36.4-46.3); Red Blood Count 2.78 M/uL (4.20-5.40); White Blood Count 10.68 K/ul (4.8-10.8)
[2024-05-29 07:52] LABS: Albumin Globulin Ratio 0.9 (0.9-2); Albumin Level 3.2 gm/dl (3.4-5.0); BUN Creatinine Ratio 20.4 (10-20); Bilirubin,Total 0.9 mg/dl (0.2-1.0); Calcium 8.7 mg/dl (8.6-10.3); Creatinine Clr Calc Pharmacy 60.8 ml/min; Globulin 3.7 gm/dl (2.5-4.0); Magnesium 1.7 mg/dl (1.7-2.4); Potassium 3.1 mmol/L (3.5-5.1); Total Protein 6.9 gm/dl (6.0-8.3)
[2024-05-29] MEDS: POTASSIUM CHLORIDE CRTAB 20 MEQ TABCR PO STA (08:09)
[2024-05-29] MEDS: guaiFENesin 600 MG TABCR PO SCH (09:25)
[2024-05-29 10:47] LABS: Adenovirus PCR Not Detected (NotDetected); Bordetella parapertussis PCR Not Detected (NotDetected); Bordetella pertussis PCR Not Detected (NotDetected); Chlamydia pneumoniae PCR Not Detected (NotDetected); Coronavirus 229E PCR Not Detected (NotDetected); Coronavirus CoV-2 (COVID19)PCR Not Detected (NotDetected); Coronavirus HKU1 PCR Not Detected (NotDetected); Coronavirus NL63 PCR Not Detected (NotDetected); Coronavirus OC43PCR Not Detected (NotDetected); Human Metapneumovirus PCR Not Detected (NotDetected); Influenza A PCR Not Detected (NotDetected); Influenza B PCR Not Detected (NotDetected); Mycoplasma pneumoniae PCR Not Detected (NotDetected); Parainfluenza Virus 1 PCR Not Detected (NotDetected); Parainfluenza Virus 2 PCR Not Detected (NotDetected); Parainfluenza Virus 3 PCR Not Detected (NotDetected); Parainfluenza Virus 4 PCR Not Detected (NotDetected); Respiratory Syncytial VirusPCR Not Detected (NotDetected); Rhinovirus/Enterovirus PCR Not Detected (NotDetected)
[2024-05-29] MEDS: LORATADINE 10 MG TAB PO SCH (10:49)
[2024-05-29 10:59] VITALS: BP 134/78; RESP 19; TEMP 98.4; O2SAT 96
--- NOTE | 2024-05-29 11:26 | Nephrology Progress Note ---
Date of Service May 29, 2024 Assessment & Plan (1) ROGER (acute kidney injury): Plan: further improving prerenal Stage 3 ROGER probably not oliguric. and w/ baseline creatinine 1. high risk for morbidity, mortality in this clinical setting w/ immunocompromised pt. NEPHRO D/C RECS IMPRESSION: -stage 3 prerenal ROGER in setting of sepsis of urinary origin D/C MEDS: -resume hctz 12.5 mg daily day after d/c -resume irbesartan on 06/01 150 mg dose F/U LABS: -bmp, cbc next week on Sat and to be ordered by hospitalist or PCP -BMP, CBC/D to be ordered following week w/ UACM, ACR, prot/creat, PTH, 25 OHD, phos, urorisk (24 hr urine study) by neph nurse and done no more than 72 hrs before f/u appt w/ me OTHER F/U CARE: -bring home bp cuff if she has one to NEPH f/u appt and home bp log at least 12- 14 readings w/ HR -aim for 80-100 oz daily fluid intake, most of which should be water -<2 gm daily sodium intake diet F/U APPTS: -hospital d/c appt w/ me 2-3 wks from today in [place] (preferred) or [facility] -PCP f/u per routine Care reviewed w/ Dr Jacob by [facility] re d/c recs; we are in agreement. (2) Sepsis: Plan: with leukocytosis, tachycardia, Stage 3 ROGER, pyuria, inflamed R kidney and peritoneal signs on exam > presumptive E coli bacteremia at least given her presentation though cxs NGTD, and improved but ongoing sx; -on empiric cefepime, dapto -cont ivf as above -f/u pending cultures > urine w/ E coli; bld cxs NGTD at 48 hrs (3) Immunocompromised state due to drug therapy: Plan: on TNF johnathan as OP >> fortunately to date no e/o more severe infections w/ this Admission and Anticipated Discharge Date Admission Date: May 27, 2024 Subjective no acute interval events clinically. improving sx. desires d/c. note when I went to see pt first time today she was on toilet, needed assistance; when I went back second time she was in w/c heading to leave hospital after d/c; did not do PE on pt today though did evaluate her, review sx and extended d/c recs for hospitalist as below. No bill will be submitted for this note as I did not examine pt directly. Review of Systems 2 Review of Systems: All systems reviewed & are unremarkable except as noted in Subjective Results & Data Vital Signs (Past 12 Hours) Vital Signs Temp Pulse Pulse Resp BP Pulse Ox Pulse Ox 05/29/24 10:59 36.9 C 83 19 134/78 96 05/29/24 10:19 80 05/29/24 07:37 05/29/24 07:26 36.7 C 80 18 144/85 H 98 05/29/24 04:00 95 05/29/24 00:51 86 O2 Del Method O2 Del Method 05/29/24 10:59 Room Air 05/29/24 10:19 05/29/24 07:37 Room Air 05/29/24 07:26 Room Air 05/29/24 04:00 Room Air 05/29/24 00:51 Laboratory Results 05/29/24 06:56 05/29/24 06:56
--- NOTE | 2024-05-29 12:12 | Discharge Summary ---
Date of Service May 29, 2024 Admission HPI Per Admitting Provider 63-year-old female with past medical history significant for hypertension, morbid obesity, heartburn, generalized osteoarthritis, thrombocytopenia, macrocytic anemia, rheumatoid arthritis involving multiple sites with positive rheumatoid factor, presents with right flank pain and found to have ROGER and UTI. Patient states last 3 days she is having severe right flank pain radiating to her right groin region. Associated with nausea. And also had a fever at home 3 days ago. Was not micturating at home last 2 -3 days. Did not moved bowels yesterday. Was feeling short of breath. Denies chest pain. Has some mild headache. Mild right ear ache. Has some runny nose. No sore throat. No cough. Currently hemodynamics are okay. Past medical history. As mentioned above Past surgical history. Colonoscopy. Ligation of oviducts. Social history. . Quit smoking 2005. Smoked 1 pack a day for 25 years. No alcohol use currently. No drug use. Family history. Father had rheumatoid arthritis. Mother had breast cancer. Non-Hodgkin's lymphoma. Maternal cousin had breast cancer. Admission Exam Per Admitting Provider General-Not in acute distress. Head- atraumatic Eyes- PERRL. ENT- oropharynx clear. Right ear external ear canal mild erythema seen Neck- supple, no JVD. Lungs- clear to auscultation no wheezing or crackles Heart- regular rhythm; no murmur, no gallop. Abdomen- normal bowel sounds, soft, mild diffuse discomfort, no distension Extremities- no pretibial edema, no erythema seen Neuro- alert, oriented PERRL, no facial palsy; no dysarthria; moves extremities Principal Diagnosis Sepsis Pyelonephritis Acute kidney injury Discharge Exam Constitutional + well hydrated and + obese; no acute distress Eyes PERRL, conjunctivae normal, anicteric sclerae ENMT external ear and nose normal, oropharynx normal Respiratory normal respiratory effort, lungs clear to auscultation Cardiovascular Rate/Rhythm: regular rate and regular rhythm Gastrointestinal (Abdomen) normal bowel sounds, soft, nontender, no hepatosplenomegaly Neurologic PERRL, EOMI, accommodation nl, no face palsy, no dysarthria Psychiatric A+Ox3, euthymic affect Genitourinary No CVA tenderness Discharge Data Allergies Allergy/AdvReac Type Severity Reaction Status Date / Time No Known Allergies Allergy Verified 05/27/24 01:51 Consultations 05/27/24 00:08 ED Decision to Admit Stat 05/27/24 08:00 Consult Nephrology Routine Ordered Studies 05/26/24 21:51 CT abd pelvis wo con Stat Hospital Course (1) Sepsis: (2) Pyelonephritis of right kidney: (3) ROGER (acute kidney injury): 63-year-old female with past medical history significant for hypertension, morbid obesity, heartburn, generalized osteoarthritis, thrombocytopenia, macrocytic anemia, rheumatoid arthritis involving multiple sites with positive rheumatoid factor, presents with right flank pain and found to have ROGER and UTI. Severe sepsis Acute pyelonephritis Acute kidney injury CT abd/pelvis noted asymmetric right mildly edematous/enlarged right kidney with minimal surrounding fat stranding Urine culture grew pansensitive E coli. Blood culture negative Leukocytosis resolved, from 20K on admission to 10K today Patient was treated with IV ceftriaxone Patient reports feeling better today with resolution of symptoms and will like to be discharged Antibiotics deescalated to Po cefdinir to complete 10 days of treatment Cr was 4.31 on presentation. Home HCTZ and irbesartan were held Home ertanecept on hold as well until infection is treated Was managed with IVF with [employer] ROGER resolved. Cr is 1.13 today Patient to resume HCTZ on discharge and to resume irbesartan on 06/01/24 PCP to get BMP, CBC next week on Sat and BMP, CBC/D to be ordered following week w/ UACM, ACR, prot/creat, PTH, 25 OHD, phos, urorisk (24 hr urine study) by neph nurse and done no more than 72 hrs before f/u appt w/ [employer] Total Time Total Time Spent Total Time Spent (In Minutes): 35 Total Time Includes: Examination of the Patient, Discharge Planning, Medication Reconciliation and Communication With Other Providers Discharge Plan Discharge Items Patient Disposition: Home - Self-Care Reason For Visit: ROGER, UTI, SEPSIS Discharge Diagnosis: Sepsis Pyelonephritis Acute kidney injury Activity: Resume your previous activity Non-emergency contact: Primary Care Provider Call non-emergency contact if: you have any medication questions Follow-up/Referrals: Zina Nava MD, PhD [Physician] - (The office will call you for a follow up appointment.) Priest,Katja M., DO [Primary Care Provider] - (Date & Time 06/05/2024 9:00 AM Provider: Katja La MD Family [facility] ) Diet: Heart Healthy and Low Sodium (2gm) Addtl Attending Provider Instructions: Mrs Ganga Pineda were admitted to the hospital and managed for the above listed diagnoses. You are being discharged on antibiotics cefdinir to complete treatment. Your enbrel was held until treatment of infection is completed Your Primary Doctor will arrange for labs on follow up. You can resume your irbesartan on 06/01/24. Please ensure follow up with Nephrology (Kidney Doctor) Please ensure follow up with your Primary Doctor. It was a pleasure taking care of you. Pending Studies at Discharge: No Stand-Alone Forms: [facility] Medications and DC Order Prescriptions: New loratadine [Wal-itin] 10 mg Tablet 10 mg PO QAM 5 Days Qty: 5 0RF cefdinir 300 mg capsule 300 mg PO BID Qty: 14 0RF Rx Instructions: Start on 05/30/23 guaifenesin [Mucinex] 600 mg Tablet Extended Release 12hr 600 mg PO Q12 Qty: 8 0RF Continued furosemide 40 mg tablet 40 mg PO DAILY PRN (Reason: Swelling) bupropion HCl 150 mg tablet sustained-release 12 hr 150 mg PO AMHS calcium carbonate-vitamin D3 [Calcium 600 + D(3)] 600 mg(1,500mg) -200 unit tablet 2 tab PO DAILY hydrochlorothiazide 12.5 mg capsule 12.5 mg PO DAILY omeprazole 20 mg capsule,delayed release(DR/EC) 20 mg PO DAILY Rx Instructions: TAKE THIS MEDICATION ONCE DAILY ONE HOUR BEFORE FIRST MEAL OF THE DAY folic acid 1 mg tablet 1 mg PO QAM acetaminophen 500 mg Tablet 1,000 mg PO Q6H PRN (Reason: Pain) Ozempic 0.25 mg or 0.5 mg (2 mg/3 mL) pen injector 0.5 mg SUBCUT WK Patient Comments: every saturday ondansetron HCl 4 mg tablet 4 mg PO Q6 PRN (Reason: Nausea) naltrexone 50 mg tablet 50 mg PO QAM atorvastatin 10 mg tablet 10 mg PO DAILY cyanocobalamin (vitamin B-12) [Vitamin B-12] 1,000 mcg Tablet 1,000 mcg PO DAILY Held Enbrel SureClick 50 mg/mL (1 mL) pen injector 50 mg SUBCUT WK Hold Instructions: Resume on 06/05/24. Rx Instructions: ADMINISTER EVERY SATURDAY irbesartan 150 mg tablet 150 mg PO HS Hold Instructions: Resume on 06/01/24. Discharge Orders: Discharge Order (Routine); Ordered 05/29/24 Ordered By: Gin Jacob Admission Data Admit Date/Time: 05/27/24 03:13 Attending Provider: Gin Jacob I. Admit Provider: Bryan Webster Primary Care Provider: Katja Priest Other Providers: Bryan Webster; Zina Nava Other Interventions: Discharge Summary Assessment (RN) Last Done: 05/29/24 12:44
[2024-05-29 17:00] VITALS: PULSE 83
== END 2024-05-29 17:00 | disposition home or self-care (01) | DRG 872 ==
LOC: ED 17:24 → 2S 05-27 03:13